=== PATIENT | female | born 1940 | race Caucasian/White ===

== ENCOUNTER → 2016-05-07 | Outpatient (CLI) | payer OTHER, BC ==
[~2016-05-07] MED LIST: ACET-1256 PO; AMLO-114 PO; CALC-20 PO; CEPH500C PO; CLON0.5T3 PO; FERR325T5 PO; FLV1 PO; FSMD/70 PO; GUAISYP4 PO; LEVO1TAB33 PO; LISI-725 PO; METH2.5T PO; MISCCAP80 PO; MULT-506 PO; PRD/25 PO; PRED-301 PO; PRLSR20 PO; PRT/20 PO; PSEU60TA80 PO; RMCI IV; SENN-61 PO; SIME80CH PO; SIMV-151 PO; TNR25 PO; WARF2TAB PO
[2016-05-07 13:31] LABS: PROTHROMBIN TIME (PATIENT) 22.5 SECONDS (9.0-12.0)
== END | disposition home or self-care (01) ==
LOC: C.LABMFLN 09:30
PROVIDERS: ATTEND Nurse Practitioner Family
DX: Z51.81 Encounter for therapeutic drug level monitoring (principal)

== ENCOUNTER 2016-06-30 17:55 | Inpatient (IN) | payer OTHER, BC ==
[~2016-06-30] VITALS: Ht 162.6 cm; Wt 67.0 kg
[~2016-06-30 17:55] MED LIST changes: -GUAISYP4 PO; -LEVO1TAB33 PO; -PRT/20 PO; -PSEU60TA80 PO; -SENN-61 PO; -SIME80CH PO; -WARF2TAB PO
[2016-06-30] MEDS ORDERED: DILTIAZEM HCL 5 MG/ML 5 ML VIAL IV STA ×2 (18:27→18:35)
[2016-06-30] MEDS ORDERED: ACETAMINOPHEN 500 MG TAB PO STA (18:27)
[2016-06-30] MEDS ORDERED: DILTIAZEM BOLUS / DRIP IV STA (18:27)
[2016-06-30] MEDS ORDERED: DILTIAZEM HCL 5 MG/ML 5 ML VIAL ONE (18:33)
[2016-06-30] MEDS ORDERED: ACETAMINOPHEN 500 MG TAB PO ONE (18:33)
[2016-06-30 18:43] LABS: BASO % 0.4 %; BASO ABS # 0.06 K/uL (0-0.2); COMPLETE YES; EOS % 1.5 %; HEMATOCRIT 40.1 % (37-47); IG% 0.6 %; LYMPH % 22.3 %; LYMPH ABS # 3.31 K/uL (1.2-3.4); MEAN CELL VOLUME 101.8 fL (80-100); MEAN CORPUSCULAR HEMOGLOBIN 34.5 pg (25-34); MEAN CORPUSCULAR HGB CONC 33.9 g/dl (32-36); MEAN PLATELET VOLUME 9.7 fL (7.4-10.4); MONO % 6.7 %; NEUT % 68.5 %; PLATELET COUNT 316 K/uL (130-400); RED BLOOD COUNT 3.94 M/uL (4.2-5.4); WHITE BLOOD COUNT 14.81 K/uL (4.8-10.8)
[2016-06-30 19:04] LABS: INR 2.5 (0.9-1.1); PARTIAL THROMBOPLASTIN RATIO 1.8; PROTHROMBIN TIME (PATIENT) 27.4 SECONDS (9.0-12.0)
--- NOTE | 2016-06-30 19:05 | DIAGNOSTIC IMAGING REPORT ---
CHEST ONE VIEW PORTABLE CLINICAL HISTORY: sob dyspnea COMPARISON STUDY: 01/29/2016 FINDINGS: Developing components of congestive failure. Heart is enlarged. Fixed hiatal hernia. Poor definition left hemidiaphragm. Right hemidiaphragm is smooth. IMPRESSION: Congestive heart failure. Potential superimposed infiltrate left base. Stable hiatal hernia. Electronically signed by: Eugenio Arredondo M.D. 06/30/2016 7:03 PM Dictated Date/Time: 06/30/2016 7:03 PM
[2016-06-30] MEDS ORDERED: DILTIAZEM HCL INJ 125 MG in DEXTROSE 5% 100ML IV PRN (19:15)
[2016-06-30] MEDS ORDERED: LEVAQUIN 750MG / 150ML D5W IV STA (19:17)
[2016-06-30] MEDS ORDERED: SODIUM CHLORIDE 0.9% 500ML 500 ML IV STA (19:57)
[2016-06-30 20:07] LABS: ALB/GLOB RATIO 0.6 (0.9-2); BUN/CREATININE RATIO 22.5 (10-20); CALCIUM 8.5 mg/dl (8.5-10.1)
[2016-06-30 20:12] LABS: POTASSIUM 3.9 mmol/L (3.5-5.1)
[2016-06-30] MEDS ORDERED: SIME80CH PO (20:24)
[2016-06-30] MEDS ORDERED: PSEU60TA80 PO (20:24)
[2016-06-30] MEDS ORDERED: WARF2TAB PO (20:24)
[2016-06-30] MEDS ORDERED: GUAISYP4 PO (20:24)
[2016-06-30] MEDS ORDERED: PRT/20 PO (20:24)
[2016-06-30] MEDS ORDERED: SENN-61 PO (20:24)
[2016-06-30] MEDS ORDERED: ALBUMIN HUMAN 25% 12.5 GM/50 ML VIAL IV STA (20:43)
[2016-06-30] MEDS ORDERED: GUAIFENESIN/CODEINE 200MG/20MG 10ML UDC PO PRN (20:45)
[2016-06-30] MEDS ORDERED: SIMETHICONE 80 MG CHEW PO PRN (20:45)
[2016-06-30] MEDS ORDERED: AMIODARONE IV BOLUS / DRIP IV STA (20:53)
[2016-06-30] MEDS ORDERED: NITROGLYCERIN 0.4 MG SL PER TAB CHARGE SL PRN (21:00)
[2016-06-30] MEDS ORDERED: ONDANSETRON INJ 2 MG/ML 2 ML VIAL IV PRN (21:00)
[2016-06-30] MEDS ORDERED: ZOLPIDEM TARTRATE 5 MG TAB PO PRN (21:00)
[2016-06-30] MEDS ORDERED: ACETAMINOPHEN 325 MG TAB PO PRN (21:00)
[2016-06-30] MEDS ORDERED: AMIODARONE / D5W 100 ML IV SCH (21:15)
[2016-06-30] MEDS ORDERED: AMIODARONE / D5W 200 ML IV SCH (21:30)
--- NOTE | 2016-06-30 22:26 | History and Physical ---
History & Physical Date & Time of Service: Jun 30, 2016 at 22:26 Chief Complaint: Breathing,Stomach Pain Primary Care Physician: Laisha Martins History of Present Illness Source: patient, spouse The patient is a 76-year-old female who presents to the emergency department with complaint of worsening fatigue, generalized weakness, increased sleepiness and shakiness, and shortness of breath, that initially began 4 weeks ago but is worsening today. She has had an assessment by her PCP for abdominal pain occurring over the past few months. She also reports a cough with yellow mucus production. She has a history of atrial fibrillation, but denies any palpitations, lightheadedness or dizziness. Past Medical/Surgical History Medical Problems: (1) A-fib Status: Chronic (2) Asthma Status: Chronic (3) Benign hypertension Status: Chronic (4) Heart disease Status: Chronic (5) History of blood clots Status: Chronic (6) Replacement of total knee joint Status: Resolved (7) Rheumatoid arthritis Status: Chronic Family History Heart disease Hypertension Social History Smoking Status: Never Smoker Smokeless Tobacco Use: No Alcohol Use: none Drug Use: none Marital Status: Housing status: lives with family Occupational Status: retired Immunizations History of Influenza Vaccine: N/A History of Tetanus Vaccine?: Yes History of Pneumococcal: Yes Pneumococcal Date: Dec 26, 2006 History of Hepatitis B Vaccine: No Multi-Drug Resistant Organisms History of MDRO: No Allergies Coded Allergies: Amoxicillin (Verified Allergy, Severe, HIVES, 06/30/16) Clavulanic Acid (Verified Allergy, Severe, HIVES, 06/30/16) Prochlorperazine (Verified Allergy, Unknown, 06/30/16) Home Medications Scheduled Acetaminophen (Tylenol), 1,000 MG PO QPM Acetaminophen (Tylenol), 500 MG PO QAM Amlodipine (Norvasc), 10 MG PO QPM Atenolol (Atenolol), 25 MG PO QPM Calcium Carbonate-Vitamin D (Calcium 600 + D), 1 TABLETS PO QAM Cephalexin Monohydrate (Keflex), 4 TABS PO DIRECTED Clonazepam (Klonopin), 0.5 MG PO QPM Folic Acid (Folic Acid), 1 MG PO DAILY Infliximab (Remicade), 100 MG IV q8 weeks Lisinopril (Zestril), 20 MG PO DAILY Methotrexate Sodium (Methotrexate), 6 TABLETS PO WK Pantoprazole (Protonix), 20 MG PO QAM Prednisone (Prednisone), 2.5 MG PO QPM Prednisone (Prednisone), 5 MG PO QAM Probiotic Product (Probiotic), 1 CAP PO QAM Simvastatin (Simvastatin), 20 MG PO DAILY Warfarin Sodium (Coumadin), 1 MG PO DAILY Warfarin Sodium (Coumadin), 2 MG PO DAILY Scheduled PRN Guaifenesin/Codeine (Robitussin-Ac Syrup), 10 ML PO Q6H PRN for Cough Pseudoephedrine-Guaifenesin (Mucinex D), 1 TAB PO BID PRN for COLD SYMPTOMS Senna (Senokot), 1 TAB PO DAILY PRN for Constipation Simethicone (Gas-X), 1 DOSE PO DIRECTED PRN for Gas or Constipation Review of Systems The patient denies chest pain, palpitations, lower extremity swelling, vision change, hearing change, sore throat, fevers, chills, sweats, weight change, pelvic pain, blood in urine or stool, dysuria, urinary frequency or urgency, lightheadedness, dizziness, headache, memory loss, rash, abnormal bruising or bleeding, imbalance, focal weakness, arthralgias or myalgias, back or neck pain , night sweats, or allergy symptoms. The review of systems is otherwise negative other than for that already noted above, and at least 10 systems have been reviewed. Physical Exam Vital Signs Date Time Temp Pulse Resp B/P Pulse Ox O2 Delivery O2 Flow Rate FiO2 06/30/16 21:34 79/57 06/30/16 21:31 63/51 06/30/16 21:30 79 19 98 06/30/16 21:15 134 20 96 06/30/16 21:01 91/50 06/30/16 21:00 134 26 98 06/30/16 20:53 126 22 75/65 98 Nasal Cannula 2.0 06/30/16 20:45 158 20 75/65 99 06/30/16 20:30 92 21 89/53 98 06/30/16 20:28 102/59 06/30/16 20:15 37.2 06/30/16 20:15 105 14 102/59 98 06/30/16 20:14 105 16 105/65 99 06/30/16 20:09 105/65 06/30/16 20:04 154 18 66/42 100 Nasal Cannula 2.0 06/30/16 20:00 117 24 66/42 06/30/16 19:55 85/41 06/30/16 19:48 134 18 94/72 96 Nasal Cannula 2.0 06/30/16 19:45 107 21 06/30/16 19:30 135 26 94/72 06/30/16 19:25 117 21 93 06/30/16 19:24 110/70 06/30/16 19:23 /36 06/30/16 19:15 162 29 90 06/30/16 19:09 99/76 06/30/16 19:08 102/83 06/30/16 19:05 138 22 06/30/16 18:55 140 26 06/30/16 18:45 174 24 96 06/30/16 18:45 171 06/30/16 18:38 Room Air 95 06/30/16 18:35 150 24 155/126 91 06/30/16 18:31 93 Room Air 06/30/16 18:25 157 27 06/30/16 18:18 131/96 06/30/16 18:03 38.2 69 24 98/73 97 Room Air The patient is awake, alert and oriented 3, normocephalic and atraumatic, lying in bed and in no acute distress. HEENT--PERRL, EOMI, mucous membranes and oropharynx dry. Neck--supple, no JVD or bruits, thyroid normal, trachea midline, no adenopathy. Heart--tachycardia with extra beats, no murmurs, rubs or gallops. Lungs--decreased breath sounds at left base, no respiratory distress, no accessory muscle use. Abdomen--normal bowel sounds and soft, nontender and nondistended, no hernias or masses, no organomegaly. Extremities--no cyanosis, clubbing or edema. There are good distal pulses b/l. Dermatologic--normal skin turgor, normal color, warm and dry, no abnormal lymph nodes, no rash. Neurologic--cranial nerves II through XII grossly intact, motor and sensory examination normal. Rheumatologic--normal range of motion, nontender, muscles and joints. Psychiatric--normal affect. Diagnostics Laboratory Results Results Past 24 Hours Test 06/30/16 18:30 3/29/17 18:31 06/30/16 18:40 Range/Units White Blood Count 14.81 4.8-10.8 K/uL Red Blood Count 3.94 4.2-5.4 M/uL Hemoglobin 13.6 12.0-16.0 g/dL Hematocrit 40.1 37-47 % Mean Corpuscular Volume 101.8 80-100 fL Mean Corpuscular Hemoglobin 34.5 25-34 pg Mean Corpuscular Hemoglobin Concent 33.9 32-36 g/dl Platelet Count 316 130-400 K/uL Mean Platelet Volume 9.7 7.4-10.4 fL Neutrophils (%) (Auto) 68.5 % Lymphocytes (%) (Auto) 22.3 % Monocytes (%) (Auto) 6.7 % Eosinophils (%) (Auto) 1.5 % Basophils (%) (Auto) 0.4 % Neutrophils # (Auto) 10.14 1.4-6.5 K/uL Lymphocytes # (Auto) 3.31 1.2-3.4 K/uL Monocytes # (Auto) 0.99 0.11-0.59 K/uL Eosinophils # (Auto) 0.22 0-0.5 K/uL Basophils # (Auto) 0.06 0-0.2 K/uL RDW Standard Deviation 65.4 36.4-46.3 fL RDW Coefficient of Variation 17.5 11.5-14.5 % Immature Granulocyte % (Auto) 0.6 % Immature Granulocyte # (Auto) 0.09 0.00-0.02 K/uL Prothrombin Time 27.4 9.0-12.0 SECONDS Prothromb Time International Ratio 2.5 0.9-1.1 Activated Partial Thromboplast Time 46.9 21.0-31.0 SECONDS Partial Thromboplastin Ratio 1.8 Sodium Level 138 136-145 mmol/L Potassium Level 3.9 3.5-5.1 mmol/L Chloride Level 106 98-107 mmol/L Carbon Dioxide Level 21 21-32 mmol/L Anion Gap 11.0 3-11 mmol/L Blood Urea Nitrogen 23 7-18 mg/dl Creatinine 1.00 0.60-1.20 mg/dl Est Creatinine Clear Calc Drug Dose 47.2 ml/min Estimated GFR () 64.3 Estimated GFR (Non- 55.5 BUN/Creatinine Ratio 22.5 10-20 Random Glucose 102 70-99 mg/dl Calcium Level 8.5 8.5-10.1 mg/dl Magnesium Level 1.9 1.8-2.4 mg/dl Total Bilirubin 0.7 0.2-1 mg/dl Aspartate Amino Transf (AST/SGOT) 20 15-37 U/L Alanine Aminotransferase (ALT/SGPT) 13 12-78 U/L Alkaline Phosphatase 64 45-117 U/L Total Protein 6.9 6.4-8.2 gm/dl Albumin 2.7 3.4-5.0 gm/dl Globulin 4.2 2.5-4.0 gm/dl Albumin/Globulin Ratio 0.6 0.9-2 Bedside Lactic Acid Venous 1.83 0.90-1.70 mmol/L Influenza Type A Antigen Neg for Influ A NEG Influenza Type B Antigen Neg for Influ B NEG Microbiology Results 06/30/16 Blood Culture, Received Pending 06/30/16 Blood Culture, Received Pending Diagnostic Radiology Patient Name: MOO JAIMES Unit Number: [id number] Dictated: 06/30/161902 Transcribed: 06/30/161902 MS Printed Date/Time: [~ rep prt dt]/[~ rep prt tm] [~ rep ct labl] - [~ rep ct ivnm] [facility] [place] [address] Dictated: 06/30/161902 Transcribed: 06/30/161902 MS Printed Date/Time: [~ rep prt dt]/[~ rep prt tm] [~ rep ct labl] - [~ rep ct ivnm] CHEST ONE VIEW PORTABLE CLINICAL HISTORY: sob dyspnea COMPARISON STUDY: 01/29/2016 FINDINGS: Developing components of congestive failure. Heart is enlarged. Fixed hiatal hernia. Poor definition left hemidiaphragm. Right hemidiaphragm is smooth. IMPRESSION: Congestive heart failure. Potential superimposed infiltrate left base. Stable hiatal hernia. Electronically signed by: Eugenio Arredondo M.D. 06/30/2016 7:03 PM Dictated Date/Time: 06/30/2016 7:03 PM The status of this report is Signed. Draft = Not yet reviewed or approved by Radiologist. Signed = Reviewed and approved by Radiologist. <AttendingPhy></AttendingPhy> <FamilyPhy>Laisha MartinsNNickiPNicki</FamilyPhy> < PrimaryPhy>Laisha MartinsP.</PrimaryPhy> <UnitNumber>[id number]</ UnitNumber> <VisitNumber>[id number]</VisitNumber> <PatientName>MOO JAIMES< /PatientName> <DateOfBirth>1940</DateOfBirth> <Location>[facility]</Location> < ServiceDate>06/30/16</ServiceDate> <MNE>ESINDI</MNE> <OrderingPhy>ED, PROTOCOL</ OrderingPhy> <OrderingPhyMNE>f rep ord dr wen</OrderingPhyMNE> <DictatingPhyMNE> f rep dict dr wen</DictatingPhyMNE> <CCListMNE>f rep ct behzad</CCListMNE> < AdmittingPhyMNE>f pt admit dr wen</AdmittingPhyMNE> <AttendingPhyMNE>f pt attend dr wen</AttendingPhyMNE> <ConsultingPhyMNE>f pt consult dr wen</ConsultingPhyMNE> <FamilyPhyMNE>f pt fam dr wen</FamilyPhyMNE> <OtherPhyMNE>f pt other dr wen</OtherPhyMNE> < PrimaryPhyMNE>f pt prim care dr wen</PrimaryPhyMNE> <ReferringPhyMNE>f pt referring dr wen</ReferringPhyMNE> EKG EKG shows atrial flutter with variable block at 159 bpm, left axis deviation, ST depressions in leads V5 and 6, I and aVL, and II. Impression Assessment and Plan Atrial flutter with RVR, variable block and hypotension/CAD/history of A. fib-- blood pressure was at a low of 75/55. She did receive IV fluid resuscitation, and had been started on a Cardizem drip by the emergency department staff, which had to be stopped due to low blood pressure. The patient is admitted to the telemetry unit. We'll continue IV fluid resuscitation. She'll be placed on amiodarone 150 mg IV loading dose and then per protocol. We will stop amlodipine 10 mg by mouth every afternoon and lisinopril 20 mg by mouth daily. We'll change atenolol 25 mg by mouth every afternoon to twice a day with hold parameters. Consult cardiology to see patient in the a.m. We'll follow serial cardiac enzymes, cardiac rhythm monitoring and order a 2-D echocardiogram with Dopplers. Continue warfarin at current dosing. INR is therapeutic at 2.5. Left lower lobe pneumonia--she will be placed on ceftriaxone 1 g IV daily and levofloxacin 500 mg IV daily every 24 hours. GERD--continue pantoprazole but change from 20 to 40 mg every morning. Hypercholesterolemia--continue simvastatin 20 mg by mouth daily. Rheumatoid arthritis--continue folic acid 1 mg by mouth daily. She is on Remicade and methotrexate along with prednisone in the outpatient setting. We' ll increase prednisone from 5 mg every morning and 2.5 mg every afternoon, to 5 mg by mouth twice a day. Insomnia --continue clonazepam 0.5 mg by mouth every afternoon. Level of Care Telemetry Advanced Directives Existing Advance Directive: No Existing Living Will: No Existing Power of Environmental Adviser: No VTE Prophylaxis VTE Risk Assessment Done? Y/N: Yes Risk Level: Moderate Given or contraindicated: Warfarin (Coumadin)
--- NOTE | 2016-06-30 23:41 | EMERGENCY ROOM VISIT NOTE ---
History Report prepared by Padilla: Rom Jennings Under the Supervision of: Dr. Bird Riggins M.D. First contact with patient: 18:22 Chief Complaint: RESPIRATORY PROBLEMS Stated Complaint: BREATHING,STOMACH PAIN History of Present Illness The patient is a 76 year old female who presents to the Emergency Room with complaints of increased tiredness occurring for the past 3-4 weeks and worsening today. She also reports increased sleepiness and shakiness. She notes shortness of breath. The patient also complains of upper abdominal pain occurring for the past few months. Her PCP has performed a work up on her for her abdominal pain. She has had mild nasal congestion and a cough with yellow mucous production. The patient denies fevers, chest pain, heart racing/ palpitations, diarrhea, or any other complaints. She has a history of A Fib but denies any similar symptoms today. Source of History: patient Onset: 3-4 weeks ago Position: other (global) Symptom Intensity: moderate Quality: other (tiredness) Timing: worsening Modifying Factors (Relieving): other (none) Associated Symptoms: + SOB, + abdominal pain, + cough, No chest pain, No diarrhea, No fevers Review of Systems See HPI for pertinent positives & negatives. A total of 10 systems reviewed and were otherwise negative. Past Medical & Surgical Medical Problems: (1) A-fib (2) Asthma (3) Atrial flutter with rapid ventricular response (4) Benign hypertension (5) Heart disease (6) Hiatal hernia (7) History of blood clots (8) Replacement of total knee joint (9) Rheumatoid arthritis Family History Heart disease Hypertension Social History Smoking Status: Never Smoker Alcohol Use: none Drug Use: none Marital Status: Housing Status: lives with family Occupation Status: retired Current/Historical Medications Scheduled Acetaminophen (Tylenol), 1,000 MG PO QPM Acetaminophen (Tylenol), 500 MG PO QAM Amlodipine (Norvasc), 10 MG PO QPM Atenolol (Atenolol), 25 MG PO QPM Calcium Carbonate-Vitamin D (Calcium 600 + D), 1 TABLETS PO QAM Cephalexin Monohydrate (Keflex), 4 TABS PO DIRECTED Clonazepam (Klonopin), 0.5 MG PO QPM Folic Acid (Folic Acid), 1 MG PO DAILY Infliximab (Remicade), 100 MG IV q8 weeks Lisinopril (Zestril), 20 MG PO DAILY Methotrexate Sodium (Methotrexate), 6 TABLETS PO WK Pantoprazole (Protonix), 20 MG PO QAM Prednisone (Prednisone), 2.5 MG PO QPM Prednisone (Prednisone), 5 MG PO QAM Probiotic Product (Probiotic), 1 CAP PO QAM Simvastatin (Simvastatin), 20 MG PO DAILY Warfarin Sodium (Coumadin), 1 MG PO DAILY Warfarin Sodium (Coumadin), 2 MG PO DAILY Scheduled PRN Guaifenesin/Codeine (Robitussin-Ac Syrup), 10 ML PO Q6H PRN for Cough Pseudoephedrine-Guaifenesin (Mucinex D), 1 TAB PO BID PRN for COLD SYMPTOMS Senna (Senokot), 1 TAB PO DAILY PRN for Constipation Simethicone (Gas-X), 1 DOSE PO DIRECTED PRN for Gas or Constipation Allergies Coded Allergies: Amoxicillin (Verified Allergy, Severe, HIVES, 06/30/16) Clavulanic Acid (Verified Allergy, Severe, HIVES, 06/30/16) Prochlorperazine (Verified Allergy, Unknown, 06/30/16) Physical Exam Vital Signs Date Time Temp Pulse Resp B/P Pulse Ox O2 Delivery O2 Flow Rate FiO2 06/30/16 20:53 126 22 75/65 98 Nasal Cannula 2.0 06/30/16 20:45 158 20 75/65 99 06/30/16 20:30 92 21 89/53 98 06/30/16 20:28 102/59 06/30/16 20:15 37.2 06/30/16 20:15 105 14 102/59 98 06/30/16 20:14 105 16 105/65 99 06/30/16 20:09 105/65 06/30/16 20:04 154 18 66/42 100 Nasal Cannula 2.0 06/30/16 20:00 117 24 66/42 06/30/16 19:55 85/41 06/30/16 19:48 134 18 94/72 96 Nasal Cannula 2.0 06/30/16 19:45 107 21 06/30/16 19:30 135 26 94/72 06/30/16 19:25 117 21 93 06/30/16 19:24 110/70 06/30/16 19:23 /36 06/30/16 19:15 162 29 90 06/30/16 19:09 99/76 06/30/16 19:08 102/83 06/30/16 19:05 138 22 06/30/16 18:55 140 26 06/30/16 18:45 174 24 96 06/30/16 18:45 171 06/30/16 18:38 Room Air 95 06/30/16 18:35 150 24 155/126 91 06/30/16 18:31 93 Room Air 06/30/16 18:25 157 27 06/30/16 18:18 131/96 06/30/16 18:03 38.2 69 24 98/73 97 Room Air Physical Exam Constitutional: Vital signs reviewed. Slightly hypotensive. Eyes: Pupils are equal round reactive to light. Conjunctiva are noninjected. ENT: Pharynx is clear without erythema or exudate. Mucous membranes are moist. Neck supple without meningeal signs. Respiratory: Clear to auscultation bilaterally. Breath sounds are equal bilaterally. Cardiovascular: Tachycardic rate with a heart rate of 160. No rubs or gallops. GI: Soft, nondistended and nontender. Bowel sounds are present. Musculoskeletal: No peripheral edema. No lower extremity tenderness. Integumentary: No cyanosis. Neurological: The patient is awake and alert. No focal deficits. Psychiatric: Normal affect. Medical Decision & Procedures ER Provider Diagnostic Interpretation: X-ray results as stated below per interpretation by me and the radiologist: CHEST ONE VIEW PORTABLE CLINICAL HISTORY: sob dyspnea COMPARISON STUDY: 01/29/2016 FINDINGS: Developing components of congestive failure. Heart is enlarged. Fixed hiatal hernia. Poor definition left hemidiaphragm. Right hemidiaphragm is smooth. IMPRESSION: Congestive heart failure. Potential superimposed infiltrate left base. Stable hiatal hernia. Electronically signed by: Eugenio Arredondo M.D. 06/30/2016 7:03 PM Dictated Date/Time: 06/30/2016 7:03 PM Laboratory Results 06/30/16 18:30 Red Blood Count 3.94, Mean Corpuscular Volume 101.8, Mean Corpuscular Hemoglobin 34.5, Mean Corpuscular Hemoglobin Concent 33.9, Mean Platelet Volume 9.7, Neutrophils (%) (Auto) 68.5, Lymphocytes (%) (Auto) 22.3, Monocytes (%) ( Auto) 6.7, Eosinophils (%) (Auto) 1.5, Basophils (%) (Auto) 0.4, Neutrophils # ( Auto) 10.14, Lymphocytes # (Auto) 3.31, Monocytes # (Auto) 0.99, Eosinophils # ( Auto) 0.22, Basophils # (Auto) 0.06 06/30/16 18:30 Test 06/30/16 18:30 06/30/16 18:31 06/30/16 18:40 White Blood Count 14.81 K/uL (4.8-10.8) Red Blood Count 3.94 M/uL (4.2-5.4) Hemoglobin 13.6 g/dL (12.0-16.0) Hematocrit 40.1 % (37-47) Mean Corpuscular Volume 101.8 fL (80-100) Mean Corpuscular Hemoglobin 34.5 pg (25-34) Mean Corpuscular Hemoglobin Concent 33.9 g/dl (32-36) Platelet Count 316 K/uL (130-400) Mean Platelet Volume 9.7 fL (7.4-10.4) Neutrophils (%) (Auto) 68.5 % Lymphocytes (%) (Auto) 22.3 % Monocytes (%) (Auto) 6.7 % Eosinophils (%) (Auto) 1.5 % Basophils (%) (Auto) 0.4 % Neutrophils # (Auto) 10.14 K/uL (1.4-6.5) Lymphocytes # (Auto) 3.31 K/uL (1.2-3.4) Monocytes # (Auto) 0.99 K/uL (0.11-0.59) Eosinophils # (Auto) 0.22 K/uL (0-0.5) Basophils # (Auto) 0.06 K/uL (0-0.2) RDW Standard Deviation 65.4 fL (36.4-46.3) RDW Coefficient of Variation 17.5 % (11.5-14.5) Immature Granulocyte % (Auto) 0.6 % Immature Granulocyte # (Auto) 0.09 K/uL (0.00-0.02) Prothrombin Time 27.4 SECONDS (9.0-12.0) Prothromb Time International Ratio 2.5 (0.9-1.1) Activated Partial Thromboplast Time 46.9 SECONDS (21.0-31.0) Partial Thromboplastin Ratio 1.8 Anion Gap 11.0 mmol/L (3-11) Est Creatinine Clear Calc Drug Dose 47.2 ml/min Estimated GFR () 64.3 Estimated GFR (Non- 55.5 BUN/Creatinine Ratio 22.5 (10-20) Calcium Level 8.5 mg/dl (8.5-10.1) Magnesium Level 1.9 mg/dl (1.8-2.4) Total Bilirubin 0.7 mg/dl (0.2-1) Aspartate Amino Transf (AST/SGOT) 20 U/L (15-37) Alanine Aminotransferase (ALT/SGPT) 13 U/L (12-78) Alkaline Phosphatase 64 U/L (45-117) Total Protein 6.9 gm/dl (6.4-8.2) Albumin 2.7 gm/dl (3.4-5.0) Globulin 4.2 gm/dl (2.5-4.0) Albumin/Globulin Ratio 0.6 (0.9-2) Bedside Lactic Acid Venous 1.83 mmol/L (0.90-1.70) Influenza Type A Antigen Neg for Influ A (NEG) Influenza Type B Antigen Neg for Influ B (NEG) Laboratory results as reviewed by me. Medications Administered Medications (Trade) Dose Ordered Sig/Norman Route Start Time Stop Time Status Last Admin Dose Admin Acetaminophen (Tylenol Tab) 1,000 mg STK-MED ONCE PO 06/30/16 18:33 06/30/16 18:34 DC 06/30/16 18:30 1,000 MG Diltiazem HCl (Cardizem Inj) 25 mg STK-MED ONCE .ROUTE 06/30/16 18:33 06/30/16 18:34 DC 06/30/16 18:30 10 MG Diltiazem HCl 10 mg 10 mg NOW STAT IV 06/30/16 18:35 06/30/16 18:36 DC 06/30/16 18:37 10 MG Diltiazem HCl/ Dextrose (Cardizem Inj/D5 100ml) 125 ml @ 10 mls/hr [id number] PRN IV 06/30/16 19:15 07/30/16 19:14 06/30/16 19:28 10 MLS/HR Levofloxacin 750 mg 750 mg NOW STAT IV 06/30/16 19:17 06/30/16 19:18 DC 06/30/16 19:31 750 MG Sodium Chloride (Nss 500ml) 500 ml @ 999 mls/hr Q31M STAT IV 06/30/16 19:57 06/30/16 20:27 DC 06/30/16 19:30 999 MLS/HR Albumin Human (Albumin 25%) 25 gm ONE STAT IV 06/30/16 20:43 06/30/16 20:44 DC 06/30/16 20:53 25 GM ECG Indication: SOB/dyspnea Rate (beats per minute): 159 Rhythm: atrial fibrillation (with RVR) Findings: other (Nonspecific ST changes; QRS is 72 milliseconds) ED Course 1821: The patient was evaluated in room B12A. A complete history and physical exam was performed. 1826: Diltiazem HCl 1 ea IV 1834: Cardizem Inj 10 mg IV 1843: I reevaluated the patient. Her heart rate is now 111. 1899: I reevaluated the patient who feels better. 1914: Diltiazem HCl 125 mg/Dextrose 125 ml @ 10 mls/hr Protocol IV 1919: The patient's heart rate is in the 120s. Cardizem trip is now starting. 1916: Levofloxacin 750 mg IV 1954: The patient is slightly hypotensive. Cardizem drip is running. Her heart rate fluctuates from 110s to 150s. Fluid bolus is initiated. I discussed the treatment plan with the patient. She verbalized agreement of the treatment plan. The patient will be evaluated for further management and care. 1956: Sodium Chloride 500 ml @ 999 mls/hr IV 2004: I discussed the patient's case with Dr. Alfaro, from [facility]. Medical Decision This is a 76-year-old female who presents with generalized fatigue and cold symptoms. Differential diagnosis includes sepsis, pneumonia, viral syndrome, influenza, UTI, cardiac, metabolic derangement. I did perform a limited focused review of portions of the patient's old chart on the electronic medical record. The patient was admitted in January 2016 for abdominal pain. She was diagnosed with a right renal mass and a large diaphragmatic hernia with stomach and lower chest. I was called emergently to the bedside by the nurse. I did evaluate the patient as noted above. IV access was established. The patient was placed on a continuous steel erecting pusher. I did order and personally review the patient's 12-lead EKG and chest x-ray as described above. The patient has atrial fibrillation with RVR and is slightly hypotensive. She was treated with Cardizem 10 mg IV. She had slight improvement of her heart rate and her blood pressure. She was given another bolus of Cardizem IV and her heart rate went down to about 110. She was started on a Cardizem drip at 10 mg per hour IV. Her chest x-ray demonstrates a left-sided pneumonia. Blood cultures were obtained. I did treat her with Levaquin IV. I did order and review the patient 's blood work as noted in the electronic medical record. Her lactic acid is elevated. Her white blood cell count is also elevated. INR is therapeutic. I did reassess the patient multiple times. She did have some transient drop in her blood pressure. She was given a normal saline bolus IV. Her blood pressure did improve. I did discuss the test results with the patient and her . I did discuss case with the hospitalist and shelter case manager for admission. Consults Time Called: 1999 Consulting Physician: Dr. Alfaro, from [facility] Returned Call: 2004 I discussed the patient's case with Dr. Alfaro, from [facility]. Impression Primary Impression: Atrial fibrillation with RVR Additional Impressions: Pneumonia involving left lung Anticoagulated on Coumadin Critical Care I have personally spent 35 minutes of critical care time in the direct management of this patient. This includes bedside care, interpretation of diagnostic studies, and testing, discussion with consultants, patient, and family members, and other required patient management activities. This 35 minutes is in excess of all separately billable procedures. Scribe Attestation The scribe's documentation has been prepared under my direct and personally reviewed by me in its entirety. I confirm that the note above accurately reflects all work, treatment, procedures, and medical decision making performed by me. Departure Information Dispostion Being Evaluated By Hospitalist Referrals No Doctor, Assigned (PCP) Patient Instructions [facility] Problem Qualifiers Additional Impressions: Pneumonia involving left lung Pneumonia type: due to unspecified organism Lung location: lower lobe of lung Qualified Codes: J18.1 - Lobar pneumonia, unspecified organism
[2016-06-30 23:43] VITALS: BP 91/61; PULSE 70; TEMP 36.4; O2SAT 99; Ht 162.6 cm; Wt 67.0 kg
[2016-06-30 23:45] VITALS: BP 87/49; PULSE 84; TEMP 36.4; O2SAT 98
[2016-07-01] VITALS (8 sets, daily range): BP systolic 101–129; BP diastolic 61–75; PULSE 82–101; TEMP 36.4–36.7; O2SAT 97–99
[2016-07-01] MEDS ORDERED: NSS + 20MEQ KCL 1000ML 1,000 ML IV SCH
[2016-07-01] MEDS: CEFTRIAXONE SOD INJ 1 GM in DEXTROSE 5% ADD-VANTAGE 50ML 50 ML IV SCH (01:05)
[2016-07-01] MEDS: CLONAZEPAM 0.5 MG TAB PO SCH ×2 (01:07→20:01)
[2016-07-01] MEDS ORDERED: AMIODARONE / D5W 200 ML IV SCH (03:30)
[2016-07-01 03:35] LABS: URINE BILIRUBIN NEG (NEG); URINE COLOR YELLOW; URINE NITRITE NEG (NEG); URINE PH 5.5 (4.5-7.5); URINE SPECIFIC GRAVITY 1.014 (1.000-1.030); UROBILINOGEN NEG (NEG); ZZURINE CULT IF INDIC CATH YES
[2016-07-01 03:44] LABS: MANUAL MICROSCOPIC REQUIRED? NO; REVIEW REQ? YES
[2016-07-01] MEDS ORDERED: NURSING VERBAL MED ORDER ONE (05:30)
[2016-07-01 06:12] LABS: BASO % 0.4 %; BASO ABS # 0.04 K/uL (0-0.2); COMPLETE YES; HEMATOCRIT 36.1 % (37-47); IG% 0.7 %; LYMPH % 24.4 %; LYMPH ABS # 2.62 K/uL (1.2-3.4); MEAN CELL VOLUME 100.8 fL (80-100); MEAN CORPUSCULAR HGB CONC 32.7 g/dl (32-36); MEAN PLATELET VOLUME 9.4 fL (7.4-10.4); MONO % 7.8 %; NEUT % 64.7 %; PLATELET COUNT 250 K/uL (130-400); RED BLOOD COUNT 3.58 M/uL (4.2-5.4); WHITE BLOOD COUNT 10.72 K/uL (4.8-10.8)
[2016-07-01 06:28] LABS: INR 2.5 (0.9-1.1); PARTIAL THROMBOPLASTIN RATIO 2.1; PROTHROMBIN TIME (PATIENT) 28.2 SECONDS (9.0-12.0)
[2016-07-01 06:44] LABS: ALT/SGPT 10 U/L (12-78); AST/SGOT 22 U/L (15-37); BLOOD UREA NITROGEN 20 mg/dl (7-18); BUN/CREATININE RATIO 22.9 (10-20); CARBON DIOXIDE 22 mmol/L (21-32); CHLORIDE 108 mmol/L (98-107); CREATININE 0.88 mg/dl (0.60-1.20); GLUCOSE 80 mg/dl (70-99); MAGNESIUM 2.2 mg/dl (1.8-2.4); POTASSIUM 3.8 mmol/L (3.5-5.1); SODIUM 140 mmol/L (136-145)
[2016-07-01 06:45] LABS: ALKALINE PHOSPHATASE 49 U/L (45-117)
[2016-07-01] MEDS: PANTOprazole SOD 40 MG TAB PO SCH (07:42)
[2016-07-01] MEDS: SIMVASTATIN 20 MG TAB PO SCH (07:42)
[2016-07-01] MEDS: CALCIUM 600MG + VIT D 400 IU TAB PO SCH (07:42)
[2016-07-01] MEDS: LACTOBACILLUS ACIDOPHILUS (FLORANEX) TAB PO SCH ×3 (07:43→15:46)
[2016-07-01] MEDS: SENNA 8.6 MG TAB PO PRN (07:44)
[2016-07-01] MEDS: ACETAMINOPHEN 500 MG TAB PO SCH ×2 (07:46→19:58)
--- NOTE | 2016-07-01 08:48 | Family Medicine Progress Note ---
Progress Note Date of Service Jul 01, 2016. Subjective Pt evaluation today including: conversation w/ patient, physical exam, chart review, lab review, review of studies, review of inpatient medication list Voiding: saenz catheter in place Feeling much improved since admission. Still having intermittent light headed episodes however, feels faint-like worse when sitting up. She notes a strong family history of members who faint easily. Musculoskeletal: + joint pain (chronic multiple from RA) Female : + problem reported (saenz cath in place), No dysuria Endo: + fatigue All Other Systems: Reviewed and Negative Medications Current Inpatient Medications Medications (Trade) Dose Ordered Sig/Norman Route Start Time Stop Time Status Last Admin Dose Admin Diltiazem HCl/ Dextrose (Cardizem Inj/D5 100ml) 125 ml @ 10 mls/hr [id number] PRN IV 06/30/16 19:15 07/30/16 19:14 06/30/16 19:28 10 MLS/HR Acetaminophen (Tylenol Tab) 1,000 mg QPM PO 07/01/16 21:00 07/31/16 20:59 Acetaminophen (Tylenol Tab) 500 mg QAM PO 07/01/16 09:00 07/31/16 08:59 07/01/16 07:46 500 MG Atenolol (Tenormin Tab) 25 mg BID PO 06/30/16 21:00 07/30/16 20:59 07/01/16 07:43 25 MG Clonazepam (Klonopin Tab) 0.5 mg QPM PO 06/30/16 21:00 07/30/16 20:59 07/01/16 01:07 0.5 MG Folic Acid (Folvite Tab) 1 mg DAILY PO 07/01/16 09:00 07/31/16 08:59 07/01/16 07:43 1 MG Codeine Phosphate/ Guaifenesin (Robitussin-AC Sugar Free Syrup) 10 ml Q6H PRN PO 06/30/16 20:45 07/30/16 20:44 Senna (Senokot Tab) 8.6 mg DAILY PRN PO 06/30/16 20:45 07/30/16 20:44 07/01/16 07:44 8.6 MG Simethicone (Mylicon Chew Tab) 80 mg QID PRN PO 06/30/16 20:45 07/30/16 20:44 07/01/16 07:43 80 MG Simvastatin (Zocor Tab) 20 mg DAILY PO 07/01/16 09:00 07/31/16 08:59 07/01/16 07:42 20 MG Warfarin Sodium (Coumadin Tab) 1 mg TuThSa@1600 PO 07/01/16 16:00 07/31/16 15:59 Warfarin Sodium (Coumadin Tab) 2 mg SuMoWeFr@1600 PO 07/02/16 16:00 08/01/16 15:59 Calcium/Vitamin D (Caltrate Plus Tab) 1 tab QAM PO 07/01/16 09:00 07/31/16 08:59 07/01/16 07:42 1 TAB Pantoprazole Sodium (Protonix Tab) 40 mg QAM PO 07/01/16 09:00 07/31/16 08:59 07/01/16 07:42 40 MG Lactobacillus Acidophilus (Floranex Tab) 4 tab TIDM PO 07/01/16 07:30 07/31/16 07:59 07/01/16 07:43 4 TAB Acetaminophen (Tylenol Tab) 650 mg Q4H PRN PO 06/30/16 21:00 07/30/16 20:59 07/01/16 05:26 650 MG Zolpidem Tartrate (Ambien Tab) 5 mg HSZ PRN PO 06/30/16 21:00 07/30/16 20:59 Nitroglycerin (Nitrostat Tab) 0.4 mg UD PRN SL 06/30/16 21:00 07/30/16 20:59 Ondansetron HCl 4 mg 4 mg Q6H PRN IV 06/30/16 21:00 07/30/16 20:59 Levofloxacin 500 mg/Prmx 100 ml @ 100 mls/hr Q24H IV 07/01/16 20:00 07/07/16 19:59 Ceftriaxone Sodium 1 gm/ Dextrose 50 ml @ 100 mls/hr Q24H IV 07/01/16 00:00 07/08/16 00:00 07/01/16 01:05 100 MLS/HR Amiodarone HCL/ Dextrose (Nexterone / D5w) 200 ml @ 16.7 mls/hr [id number] IV 07/01/16 03:30 07/31/16 03:29 07/01/16 02:49 16.7 MLS/HR Objective Vital Signs Date Time Temp Pulse Resp B/P Pulse Ox O2 Delivery O2 Flow Rate FiO2 07/01/16 07:30 Nasal Cannula 2.0 07/01/16 07:26 36.4 92 20 120/75 99 Nasal Cannula 2.0 07/01/16 04:57 36.7 98 16 119/67 98 Nasal Cannula 2.0 07/01/16 04:00 99 Nasal Cannula 2.0 95 07/01/16 01:38 108/71 07/01/16 00:00 99 Nasal Cannula 2.0 95 06/30/16 23:45 36.4 84 18 87/49 98 Nasal Cannula 2.0 06/30/16 23:43 36.4 70 18 91/61 99 Nasal Cannula 2.0 06/30/16 22:30 137 22 78/58 98 06/30/16 21:34 79/57 06/30/16 21:31 63/51 06/30/16 21:30 79 19 98 06/30/16 21:15 134 20 96 06/30/16 21:01 91/50 06/30/16 21:00 134 26 98 06/30/16 20:53 126 22 75/65 98 Nasal Cannula 2.0 06/30/16 20:45 158 20 75/65 99 06/30/16 20:30 92 21 89/53 98 06/30/16 20:28 102/59 06/30/16 20:15 37.2 06/30/16 20:15 105 14 102/59 98 06/30/16 20:14 105 16 105/65 99 06/30/16 20:09 105/65 06/30/16 20:04 154 18 66/42 100 Nasal Cannula 2.0 06/30/16 20:00 117 24 66/42 06/30/16 19:55 85/41 06/30/16 19:48 134 18 94/72 96 Nasal Cannula 2.0 06/30/16 19:45 107 21 06/30/16 19:30 135 26 94/72 06/30/16 19:25 117 21 93 06/30/16 19:24 110/70 06/30/16 19:23 /36 06/30/16 19:15 162 29 90 06/30/16 19:09 99/76 06/30/16 19:08 102/83 06/30/16 19:05 138 22 06/30/16 18:55 140 26 06/30/16 18:45 174 24 96 06/30/16 18:45 171 06/30/16 18:38 Room Air 95 06/30/16 18:35 150 24 155/126 91 06/30/16 18:31 93 Room Air 06/30/16 18:25 157 27 06/30/16 18:18 131/96 06/30/16 18:03 38.2 69 24 98/73 97 Room Air Physical Exam General Appearance: WD/WN, no apparent distress Eyes: normal inspection, PERRL, EOMI Neck: supple, no JVD Respiratory/Chest: chest non-tender, lungs clear, normal breath sounds, no respiratory distress, no accessory muscle use Cardiovascular: no edema, no murmur, + irregularly irregular Abdomen: normal bowel sounds, soft, + tenderness (mild epigastric and suprapubic tenderness without guarding or rebound) Extremities: no pedal edema, no calf tenderness, normal capillary refill, + pertinent finding (chronic inflammation of joints consistent with RA) Neurologic/Psychiatric: no motor/sensory deficits, alert, normal mood/affect, oriented x 3 Skin: normal color, warm/dry, no rash Laboratory Results 07/01/16 05:22 Red Blood Count 3.58, Mean Corpuscular Volume 100.8, Mean Corpuscular Hemoglobin 33.0, Mean Corpuscular Hemoglobin Concent 32.7, Mean Platelet Volume 9.4, Neutrophils (%) (Auto) 64.7, Lymphocytes (%) (Auto) 24.4, Monocytes (%) ( Auto) 7.8, Eosinophils (%) (Auto) 2.0, Basophils (%) (Auto) 0.4, Neutrophils # ( Auto) 6.93, Lymphocytes # (Auto) 2.62, Monocytes # (Auto) 0.84, Eosinophils # ( Auto) 0.21, Basophils # (Auto) 0.04 07/01/16 05:22 Test 06/30/16 18:30 06/30/16 18:31 06/30/16 18:40 06/30/16 21:50 Globulin 4.2 gm/dl (2.5-4.0) Albumin/Globulin Ratio 0.6 (0.9-2) Bedside Lactic Acid Venous 1.83 mmol/L (0.90-1.70) Influenza Type A Antigen Neg for Influ A (NEG) Influenza Type B Antigen Neg for Influ B (NEG) Urine Color YELLOW Urine Appearance ERROR (CLEAR) Urine pH 5.5 (4.5-7.5) Urine Specific Kendall 1.014 (1.000-1.030) Urine Protein 1+ (NEG) Urine Glucose (UA) NEG (NEG) Urine Ketones TRACE (NEG) Urine Occult Blood 1+ (NEG) Urine Nitrite NEG (NEG) Urine Bilirubin NEG (NEG) Urine Urobilinogen NEG (NEG) Urine Leukocyte Esterase LARGE (NEG) Urine WBC (Auto) >30 /hpf (0-5) Urine RBC (Auto) 0-4 /hpf (0-4) Urine Hyaline Casts (Auto) 0 /lpf (0-5) Urine Epithelial Cells (Auto) 5-10 /lpf (0-5) Urine Bacteria (Auto) 4+ (NEG) Urine Pathogenic Casts /lpf (0) Test 07/01/16 05:22 White Blood Count 10.72 K/uL (4.8-10.8) Red Blood Count 3.58 M/uL (4.2-5.4) Hemoglobin 11.8 g/dL (12.0-16.0) Hematocrit 36.1 % (37-47) Mean Corpuscular Volume 100.8 fL (80-100) Mean Corpuscular Hemoglobin 33.0 pg (25-34) Mean Corpuscular Hemoglobin Concent 32.7 g/dl (32-36) Platelet Count 250 K/uL (130-400) Mean Platelet Volume 9.4 fL (7.4-10.4) Neutrophils (%) (Auto) 64.7 % Lymphocytes (%) (Auto) 24.4 % Monocytes (%) (Auto) 7.8 % Eosinophils (%) (Auto) 2.0 % Basophils (%) (Auto) 0.4 % Neutrophils # (Auto) 6.93 K/uL (1.4-6.5) Lymphocytes # (Auto) 2.62 K/uL (1.2-3.4) Monocytes # (Auto) 0.84 K/uL (0.11-0.59) Eosinophils # (Auto) 0.21 K/uL (0-0.5) Basophils # (Auto) 0.04 K/uL (0-0.2) RDW Standard Deviation 65.8 fL (36.4-46.3) RDW Coefficient of Variation 17.7 % (11.5-14.5) Immature Granulocyte % (Auto) 0.7 % Immature Granulocyte # (Auto) 0.08 K/uL (0.00-0.02) Prothrombin Time 28.2 SECONDS (9.0-12.0) Prothromb Time International Ratio 2.5 (0.9-1.1) Activated Partial Thromboplast Time 54.8 SECONDS (21.0-31.0) Partial Thromboplastin Ratio 2.1 Anion Gap 10.0 mmol/L (3-11) Est Creatinine Clear Calc Drug Dose 52.6 ml/min Estimated GFR () 75.0 Estimated GFR (Non- 64.7 BUN/Creatinine Ratio 22.9 (10-20) Calcium Level 8.0 mg/dl (8.5-10.1) Magnesium Level 2.2 mg/dl (1.8-2.4) Total Bilirubin 0.5 mg/dl (0.2-1) Direct Bilirubin < 0.1 mg/dl (0-0.2) Aspartate Amino Transf (AST/SGOT) 22 U/L (15-37) Alanine Aminotransferase (ALT/SGPT) 10 U/L (12-78) Alkaline Phosphatase 49 U/L (45-117) Total Protein 5.8 gm/dl (6.4-8.2) Albumin 2.5 gm/dl (3.4-5.0) Assessment and Plan 76 yo female with known atrial flutter/fibrillation, shortness of breath and fatigue. Possible left lower lobe pneumonia - Questionable infiltrate on CXR with b/l pulmonary edema. - Continue ceftriaxone and levaquin pending blood cultures Cystitis/UTI - suprapubic pain with UA suggestive of UTI - covered with ceftriaxone and Levaquin - await urine cultures Atrial flutter with RVR, variable block and hypotension in the ER - Consult cardiology - Cardizem stopped due to low BP - continue IV amiodarone currently pending cardiology review Coronary artery disease / history of A. fib - blood pressure was at a low of 75/55 - serial cardiac enzymes negative Hypotension - now resolved but still feeling occasional light headedness - hold amlodipine and lisinopril. Atenolol increased to 25mg daily to twice/day We'll follow serial cardiac enzymes, cardiac rhythm monitoring and order a 2- D echocardiogram with Dopplers. Continue warfarin at current dosing. INR is therapeutic at 2.5. GERD/gastritis - mild epigastric pain on examination. Pantoprazole was increased from 20-40mg PO. Hypercholesterolemia - continue simvastatin 20 mg PO daily Rheumatoid arthritis - continue folic acid 1 mg by mouth daily. - Hold infliximab and methotrexate, she is unsure who her - Continue prednisone; 5 mg QAM and 5(increased from 2.5)mg in afternoon Insomnia --continue clonazepam 0.5 mg by mouth every afternoon. Code - Full VTE Prophylaxis - INR therapeutic. Hold warfarin as INR likely to increase with Levaquin use Disposition - continue on telemetry due to RVR and IV amiodarone Resident Tracking Resident Involvement: Resident Care Provided Care Provided: Adult Hospital Medicine History Resident Physician Supervision Note: I was present with Dr. Hdz during the history and exam. I discussed the case with the resident and agree with the findings and plan as documented in the note. Any exceptions or clarifications are listed here. Pt seen and examined at bedside. Feeling fatigued, but reports no SOB, PURDY, lightheadedness, CP, palpitations, sensation changes, n/v. General Appearance: no apparent distress, thin Respiratory: chest non-tender, no respiratory distress, decreased breath sounds (b/l bases L > R) Cardiovascular: normal peripheral pulses, no edema, irregularly irregular Gastrointestinal: normal bowel sounds, non tender, soft, no organomegaly Assessment/Plan 76 y/o male h/o CAD, atrial fibrillation presents w/ LLL PNA and atrial fibrillation w/ RVR Atrial fibrillation w/ RVR w/ hypotension - Cardiology aware and input appreciated. D/C amiodarone in favor of rate control w/ diltiazem and digoxin. Continue warfarin. Hydration w/ 500cc over several hr. Continue atenolol BID. Holding lisinopril and amlodipine LLL PNA - continue levofloxacin and ceftriaxone, f/u BCx Elevated aPTT - repeat in AM, t/c hematology evaluation Decreased UOP - likely azotemia - hydration as above GERD - PPI HLD - continue simvastatin RA - continue folic acid. Pred at 5mg BID Insomnia - takes clonazepam, will continue but strongly recommend alternative sleep aid
[2016-07-01] MEDS ORDERED: DIGOXIN 0.25 MG TAB PO ONE (13:30)
--- NOTE | 2016-07-01 13:56 | CARDIOLOGY CONSULTATION ---
DATE OF CONSULTATION: 07/01/2016 REFERRING PHYSICIAN: Sim Hdz. HISTORY OF PRESENT ILLNESS: Mrs. Mary Mercedes is a 76-year-old woman with a history of atrial fibrillation versus atrial flutter. She was admitted to [facility] yesterday after experiencing several weeks of worsening fatigue and some shaking episodes as well as sleepiness. She also has been having some abdominal discomfort recently that seems to be worse prior to eating. She has not been aware of any racing heartbeats or palpitations recently. She has not had any symptoms of chest discomfort. She states that she may have had an element of worsening breathing difficulty and occasional cough. She also has had some subjective fevers and the aforementioned shakes. The patient generally speaking is very sedentary, she is compliant of wheelchair and taken care of by her at home. She has been compliant with her medications and has not suffered a notable change in her diet recently. She is not aware of any lower extremity swelling or increasing edema. She has an element of anorexia over the past few weeks, primarily associated with her abdominal complaints and a generalized feeling of weakness. She does not describe symptoms of dizziness or lightheadedness. PAST MEDICAL HISTORY: Significant for: 1. Rheumatoid arthritis. 2. Anemia. 3. Atrial flutter versus fibrillation. 4. Hiatal hernia with esophageal reflux. 5. Hyperlipidemia. 6. Hypertension. 7. Lumbar radiculopathy. 8. Deep venous thrombosis. PAST SURGICAL HISTORY: Includes knee replacement and ankle surgery. OUTPATIENT MEDICATIONS: Include amlodipine, atenolol, warfarin, lisinopril, folic acid, methotrexate, omeprazole, prednisone, Remicade and Zocor. MEDICAL ALLERGIES: INCLUDE AMOXICILLIN, AUGMENTIN, AND PROCHLORPERAZINE. FAMILY HISTORY: Noncontributory. No history of premature coronary disease. SOCIAL HISTORY: The patient currently lives with her . She is a nonsmoker and denies significant alcohol abuse. REVIEW OF SYSTEMS: A complete system review of systems was performed and the pertinent positives are noted in the history of present illness. The patient did not report any difficulty with vomiting. She has had normal bowel habits. She has not noticed any swelling in her lower extremities. She has no new symptoms of pain. PHYSICAL EXAMINATION: GENERAL: She was alert and oriented, mood and affect appeared normal. She answered all questions appropriately. CURRENT VITAL SIGNS: Include blood pressure 101/61 with a pulse of 82. HEENT: Her sclerae are anicteric. Pupils equal, reactive to light and accommodation. Extraocular movements were intact. NECK: Palpation of submandibular region not really significant lymphadenopathy. The carotids are palpable bilaterally. I do not appreciate bruits on auscultation. There is no evidence of jugular venous distention. Thyroid is not enlarged. LUNGS: Auscultation of lungs reveal them to be clear. I do not appreciate any rales on exam she had good respiratory effort without use of accessory muscles. CARDIAC: Revealed her to be in an irregular, irregular rhythm. I did not appreciate any murmurs; however. PMI was not markedly displaced. EXTREMITIES: Evaluation of both wrists revealed radial pulses that were equal in intensity. There is no evidence of cyanosis or clubbing, although she did have marked deformity of all 4 extremities due to arthritis. There are some atrophic changes in the legs, but no edema. LABORATORY STUDIES: Obtained at [facility] include a sodium of 140 with potassium of 3.8, BUN was 20, creatinine was 0.88. CBC includes a white cell count of 10.7, hemoglobin 11.8, platelet count of 250. INR was 2.5. IMAGING DATA: Single view chest x-ray was obtained in the Emergency Room and this revealed evidence of congestive heart failure with possible infiltrate in the left base. EKGs and telemetry were reviewed and this suggested atrial fibrillation, occasional high rates more consistent with an organized atrial rhythm such as atrial flutter. ASSESSMENT AND PLAN: 1. Atrial fibrillation. Review of the patient's telemetry suggests her predominant rhythm is more consistent with an atrial fibrillation rather than an organized atrial flutter. The duration of her current episode is unclear. Her outpatient records suggests this is chronic and she has had an irregular heart rate during most clinic visit. Given the presumed chronicity of the arrhythmia, I think efforts at rhythm control strategy would be ineffective. As such, I think we will continue with rate control in this circumstance, presentation with high rates may be more consistent either with infection or dehydration associated with anorexia leading up to her admission. She does appear to be compliant with the medical therapy. Review of her outpatient records suggests that her overall heart rate is on the lower side and I think we must be careful with respect to aggressive rate control. She is likely did have some improvement in her heart rate as her clinical condition improves. I would discontinue amiodarone favor of other rate control agents since our intention is not to return her into sinus rhythm. I do not feel there is any efficacy in giving her amiodarone and exposing her to that toxicity. I would advocate returning her to her daily dose of atenolol and added digoxin. Given her relatively sedentary state this may in fact improve rate control overall. 2. Dyspnea. The patient did have an element of dyspnea at the time of admission which appears to have resolved today, she is on some supplemental oxygen. She may have an infectious process or possibly pulmonary vascular congestion. She is scheduled for an echocardiogram today, a notable change in her ventricular function could have precipitated this recent episode, account for her higher heart rates and perhaps breathing difficulties. 3. Hypotension. The patient did present with relative hypotension; however, this was after administration of diltiazem, possibly in the setting of some mild intravascular depletion and her pressures are more normal currently. I do not think this represents a result of significant cardiac decompensation. FINAL RECOMMENDATIONS: 1. Review echocardiogram. 2. Continue rate control strategy with atenolol and digoxin. 3. Discontinue amiodarone. 4. Continue anticoagulation.
[2016-07-01] MEDS ORDERED: WARFARIN SOD 1 MG TAB PO SCH (16:00)
[2016-07-01] MEDS ORDERED: SODIUM CHLORIDE 0.9% 500ML 500 ML IV STA (19:37)
[2016-07-01] MEDS: LEVOFLOXACIN / D5W 500 MG in PREMIXED IN D5W 100 ML IV SCH (19:57)
[2016-07-02] VITALS (7 sets, daily range): BP systolic 107–147; BP diastolic 64–89; PULSE 49–123; TEMP 36.4–36.8; O2SAT 96–99
[2016-07-02] MEDS: CEFTRIAXONE SOD INJ 1 GM in DEXTROSE 5% ADD-VANTAGE 50ML 50 ML IV SCH (00:22)
[2016-07-02] MEDS ORDERED: NURSING VERBAL MED ORDER ONE (01:00)
[2016-07-02 07:26] LABS: BASO % 0.2 %; BASO ABS # 0.01 K/uL (0-0.2); COMPLETE YES; EOS % 0.6 %; HEMATOCRIT 34.8 % (37-47); IG% 1.1 %; LYMPH % 18.5 %; LYMPH ABS # 1.18 K/uL (1.2-3.4); MEAN CORPUSCULAR HEMOGLOBIN 33.6 pg (25-34); MEAN CORPUSCULAR HGB CONC 33.6 g/dl (32-36); MEAN PLATELET VOLUME 9.7 fL (7.4-10.4); MONO % 3.9 %; NEUT % 75.7 %; PLATELET COUNT 257 K/uL (130-400); RED BLOOD COUNT 3.48 M/uL (4.2-5.4); WHITE BLOOD COUNT 6.39 K/uL (4.8-10.8)
[2016-07-02 07:41] LABS: INR 2.6 (0.9-1.1); PARTIAL THROMBOPLASTIN RATIO 2.2; PROTHROMBIN TIME (PATIENT) 28.6 SECONDS (9.0-12.0)
[2016-07-02 07:58] LABS: BUN/CREATININE RATIO 18.2 (10-20); CALCIUM 7.9 mg/dl (8.5-10.1); CREATININE 0.62 mg/dl (0.60-1.20); POTASSIUM 3.8 mmol/L (3.5-5.1)
--- NOTE | 2016-07-02 09:02 | Family Medicine Progress Note ---
Progress Note Date of Service Jul 02, 2016. Subjective Pt evaluation today including: conversation w/ patient, conversation w/ family , physical exam, chart review, review of studies, review of inpatient medication list Voiding: no voiding problems Feels she is improving, no acute issues overnight. Discussed consulting hematology and additional testing for elevated aPTT, possibility of lupus anticoagulant. All Other Systems: Reviewed and Negative Medications Current Inpatient Medications Medications (Trade) Dose Ordered Sig/Norman Route Start Time Stop Time Status Last Admin Dose Admin Acetaminophen (Tylenol Tab) 1,000 mg QPM PO 07/01/16 21:00 07/31/16 20:59 07/01/16 19:58 1,000 MG Acetaminophen (Tylenol Tab) 500 mg QAM PO 07/01/16 09:00 07/31/16 08:59 07/01/16 07:46 500 MG Clonazepam (Klonopin Tab) 0.5 mg QPM PO 06/30/16 21:00 07/30/16 20:59 07/01/16 20:01 0.5 MG Folic Acid (Folvite Tab) 1 mg DAILY PO 07/01/16 09:00 07/31/16 08:59 07/01/16 07:43 1 MG Codeine Phosphate/ Guaifenesin (Robitussin-AC Sugar Free Syrup) 10 ml Q6H PRN PO 06/30/16 20:45 07/30/16 20:44 Senna (Senokot Tab) 8.6 mg DAILY PRN PO 06/30/16 20:45 07/30/16 20:44 07/01/16 07:44 8.6 MG Simethicone (Mylicon Chew Tab) 80 mg QID PRN PO 06/30/16 20:45 07/30/16 20:44 07/01/16 07:43 80 MG Simvastatin (Zocor Tab) 20 mg DAILY PO 07/01/16 09:00 07/31/16 08:59 07/01/16 07:42 20 MG Calcium/Vitamin D (Caltrate Plus Tab) 1 tab QAM PO 07/01/16 09:00 07/31/16 08:59 07/01/16 07:42 1 TAB Pantoprazole Sodium (Protonix Tab) 40 mg QAM PO 07/01/16 09:00 07/31/16 08:59 07/01/16 07:42 40 MG Lactobacillus Acidophilus (Floranex Tab) 4 tab TIDM PO 07/01/16 07:30 07/31/16 07:59 07/01/16 15:46 4 TAB Acetaminophen (Tylenol Tab) 650 mg Q4H PRN PO 06/30/16 21:00 07/30/16 20:59 07/01/16 05:26 650 MG Zolpidem Tartrate (Ambien Tab) 5 mg HSZ PRN PO 06/30/16 21:00 07/30/16 20:59 Nitroglycerin (Nitrostat Tab) 0.4 mg UD PRN SL 06/30/16 21:00 07/30/16 20:59 Ondansetron HCl 4 mg 4 mg Q6H PRN IV 06/30/16 21:00 07/30/16 20:59 Levofloxacin 500 mg/Prmx 100 ml @ 100 mls/hr Q24H IV 07/01/16 20:00 07/07/16 19:59 07/01/16 19:57 100 MLS/HR Ceftriaxone Sodium/Dextrose (Rocephin Inj/ Dextrose Add-Webber 50ML) 50 ml @ 100 mls/hr Q24H IV 07/01/16 00:00 07/08/16 00:00 07/02/16 00:22 100 MLS/HR Atenolol (Tenormin Tab) 25 mg DAILY PO 07/02/16 09:00 08/01/16 08:59 Prednisone (PredniSONE TAB) 5 mg QAM PO 07/02/16 09:00 08/01/16 08:59 Prednisone (PredniSONE TAB) 5 mg DAILY@1300 PO 07/02/16 13:00 08/01/16 12:59 Objective Vital Signs Date Time Temp Pulse Resp B/P Pulse Ox O2 Delivery O2 Flow Rate FiO2 07/02/16 08:00 36.4 123 18 147/81 96 Room Air 07/02/16 04:27 36.6 99 18 129/75 97 Room Air 07/02/16 04:00 Room Air 07/02/16 00:03 36.7 99 18 136/82 99 Room Air 07/01/16 23:59 Room Air 07/01/16 20:00 Room Air 07/01/16 19:55 36.4 86 18 118/72 97 Room Air 07/01/16 16:00 Room Air 07/01/16 15:33 36.6 101 20 129/66 97 Room Air 07/01/16 13:30 77 07/01/16 12:00 Room Air 07/01/16 11:52 36.7 82 20 101/61 97 Nasal Cannula 2.0 Physical Exam General Appearance: WD/WN, no apparent distress Neck: supple, no JVD Respiratory/Chest: + crackles (left base, vesicular breath sounds elsewhere) Cardiovascular: no edema, no murmur, + irregularly irregular Abdomen: normal bowel sounds, non tender, soft Extremities: no pedal edema, no calf tenderness, normal capillary refill, + pertinent finding (Chronic joint inflammation changes from RA) Neurologic/Psychiatric: alert, oriented x 3 Skin: normal color, warm/dry, no rash Laboratory Results 07/02/16 06:40 Red Blood Count 3.48, Mean Corpuscular Volume 100.0, Mean Corpuscular Hemoglobin 33.6, Mean Corpuscular Hemoglobin Concent 33.6, Mean Platelet Volume 9.7, Neutrophils (%) (Auto) 75.7, Lymphocytes (%) (Auto) 18.5, Monocytes (%) ( Auto) 3.9, Eosinophils (%) (Auto) 0.6, Basophils (%) (Auto) 0.2, Neutrophils # ( Auto) 4.84, Lymphocytes # (Auto) 1.18, Monocytes # (Auto) 0.25, Eosinophils # ( Auto) 0.04, Basophils # (Auto) 0.01 07/02/16 06:40 Test 07/02/16 06:40 White Blood Count 6.39 K/uL (4.8-10.8) Red Blood Count 3.48 M/uL (4.2-5.4) Hemoglobin 11.7 g/dL (12.0-16.0) Hematocrit 34.8 % (37-47) Mean Corpuscular Volume 100.0 fL (80-100) Mean Corpuscular Hemoglobin 33.6 pg (25-34) Mean Corpuscular Hemoglobin Concent 33.6 g/dl (32-36) Platelet Count 257 K/uL (130-400) Mean Platelet Volume 9.7 fL (7.4-10.4) Neutrophils (%) (Auto) 75.7 % Lymphocytes (%) (Auto) 18.5 % Monocytes (%) (Auto) 3.9 % Eosinophils (%) (Auto) 0.6 % Basophils (%) (Auto) 0.2 % Neutrophils # (Auto) 4.84 K/uL (1.4-6.5) Lymphocytes # (Auto) 1.18 K/uL (1.2-3.4) Monocytes # (Auto) 0.25 K/uL (0.11-0.59) Eosinophils # (Auto) 0.04 K/uL (0-0.5) Basophils # (Auto) 0.01 K/uL (0-0.2) RDW Standard Deviation 63.1 fL (36.4-46.3) RDW Coefficient of Variation 17.5 % (11.5-14.5) Immature Granulocyte % (Auto) 1.1 % Immature Granulocyte # (Auto) 0.07 K/uL (0.00-0.02) Prothrombin Time 28.6 SECONDS (9.0-12.0) Prothromb Time International Ratio 2.6 (0.9-1.1) Activated Partial Thromboplast Time 58.4 SECONDS (21.0-31.0) Partial Thromboplastin Ratio 2.2 Anion Gap 11.0 mmol/L (3-11) Est Creatinine Clear Calc Drug Dose 76.7 ml/min Estimated GFR () 103.0 Estimated GFR (Non- 88.8 BUN/Creatinine Ratio 18.2 (10-20) Calcium Level 7.9 mg/dl (8.5-10.1) Magnesium Level 2.0 mg/dl (1.8-2.4) Total Bilirubin 0.4 mg/dl (0.2-1) Direct Bilirubin 0.1 mg/dl (0-0.2) Aspartate Amino Transf (AST/SGOT) 19 U/L (15-37) Alanine Aminotransferase (ALT/SGPT) 9 U/L (12-78) Alkaline Phosphatase 56 U/L (45-117) Total Protein 6.0 gm/dl (6.4-8.2) Albumin 2.3 gm/dl (3.4-5.0) Date/Time Source Procedure Growth Status 07/01/16 10:47 Nasal MRSA DNA Surveillance Screen - Final Specimen Negative for MRSA by DNA Probe Complete Assessment and Plan 76 yo female with known atrial flutter/fibrillation, shortness of breath and fatigue. Possible left lower lobe pneumonia - Questionable infiltrate on CXR with b/l pulmonary edema. Mild right sided crackles on examination does not correlate with CXR, will repeat 2 view CXR to assess continuing need to cover for pneumonia. - Continue levaquin - Blood cultures negative @ 24 hours Cystitis/UTI - suprapubic pain with UA suggestive of UTI - Continue Levaquin. stop ceftriaxone. can be - Urine culture - gram negative bacilli, await sensitivities Elevated aPPT - appears to high to be effect of warfarin. Mixing study ordered. ?lupus anticoagulant, if does not correct will investigate for this. - Consult hematology Atrial flutter with RVR, variable block and hypotension in the ER Appreciate cardiology recommendations - Cardizem stopped due to low BP - Started loading with digoxin yesterday but stopped due to concern for HR in 40 's (I did not find this on telemetry but will defer restarting digoxin to Cardiology) Coronary artery disease / history of A. fib - serial cardiac enzymes negative - usually on anticoagulation with warfarin, currently on hold due to Levaquin use and unusual therapeutic aPTT - echo pending Hypotension - now resolved but still feeling occasional light headedness - holding home medications amlodipine and lisinopril. Continue atenolol 25 mg PO daily for rate control. GERD/gastritis - mild epigastric pain on examination. Pantoprazole was increased from 20-40mg PO. Hypercholesterolemia - continue simvastatin 20 mg PO daily Rheumatoid arthritis - continue folic acid 1 mg by mouth daily. - Holding infliximab and methotrexate due to acute illness - Continue home dose prednisone; 5 mg QAM and 5(increased from 2.5)mg in afternoon Insomnia --continue clonazepam 0.5 mg by mouth every afternoon. Code - Full VTE Prophylaxis - INR and aPTT within therapeutic range Disposition - continue on telemetry due to HR 110-120. History Resident Physician Supervision Note: I was present with Dr. Hdz during the history and exam. I discussed the case with the resident and agree with the findings and plan as documented in the note. Any exceptions or clarifications are listed here. Pt seen and examined at bedside. No acute events overnight. Fatigue has improved since yesterday and she feels more like her baseline. Reports no PURDY, chest pain, lightheadedness, bruising/bleeding. General Appearance: WD/WN, no apparent distress Respiratory: chest non-tender, lungs clear, normal breath sounds, no respiratory distress Cardiovascular: normal peripheral pulses, no edema, no murmur, irregularly irregular Assessment/Plan 76 y/o male h/o CAD, atrial fibrillation presents w/ LLL PNA and atrial fibrillation w/ RVR Atrial fibrillation w/ RVR - Cardiology aware and input appreciated. Off IV diltiazem. Continue digoxin, atenolol BID. LLL PNA - continue levofloxacin, d/c ceftriaxone Elevated aPTT - Hematology consulted and input appreciated. Mixing study today. GERD - PPI HLD - continue simvastatin RA - continue folic acid. Pred at 5mg BID Insomnia - takes clonazepam, will continue but strongly recommend alternative sleep aid Resident Tracking Resident Involvement: Resident Care Provided Care Provided: Adult Hospital Medicine
[2016-07-02] MEDS: LACTOBACILLUS ACIDOPHILUS (FLORANEX) TAB PO SCH ×3 (09:17→17:09)
[2016-07-02] MEDS: CALCIUM 600MG + VIT D 400 IU TAB PO SCH (09:17)
[2016-07-02] MEDS: PANTOprazole SOD 40 MG TAB PO SCH (09:18)
[2016-07-02] MEDS: ACETAMINOPHEN 500 MG TAB PO SCH ×2 (09:19→21:11)
[2016-07-02] MEDS: SIMVASTATIN 20 MG TAB PO SCH (09:19)
--- NOTE | 2016-07-02 10:08 | DIAGNOSTIC IMAGING REPORT ---
CHEST 2 VIEWS ROUTINE CLINICAL HISTORY: ?developing consolidation on CXR dyspnea COMPARISON STUDY: 06/30/2016 FINDINGS: Mild stable primary megaly. Fixed lateral hernia. Minimal interstitial infiltrate left base. This is improved from the prior study. Mild chronic pulmonary vascular congestion. Severe degenerative change of the shoulders bilaterally. IMPRESSION: Mildly improved exam. Improved aeration left lung base. Improved pulmonary venous congestion. Electronically signed by: Eugenio Arredondo M.D. 07/02/2016 10:07 AM Dictated Date/Time: 07/02/2016 10:05 AM
--- NOTE | 2016-07-02 10:26 | CARDIOLOGY PROGRESS NOTE ---
DATE: 07/02/2016 DATE: 07/02/2016. SUBJECTIVE: Mrs. Mercedes is resting chest pain, dyspnea, or palpitations. OBJECTIVE: VITAL SIGNS: Blood pressure is 147/81 with pulse varying between 90 and 120 beats per minute. Respiratory rate is 18. The patient is afebrile at 36.4 degrees Celsius. Saturation is 96% on room air. NECK: Supple with full carotid upstrokes. No obvious bruits. Jugular venous pressure is difficult to assess. CARDIOVASCULAR EXAMINATION: Reveals an irregular, irregular rhythm with distant heart sounds. No obvious murmurs. LUNGS: Clear without rales, rhonchi, or wheezes. ABDOMEN: Soft without bruits. EXTREMITIES: Reveal intact radial artery pulses bilaterally. There is no peripheral edema. LABORATORY DATA: CBC notes hemoglobin of 11.7, hematocrit 34.8, white count 6.3, platelet count 257,000. Electrolytes note a sodium of 139, potassium 3.8, chloride 110, bicarb 18, BUN 11, creatinine 0.62, glucose 98. INR is 2.6. laboratory monitor notes atrial fibrillation with a variable ventricular response, but generally elevated. No pauses or inappropriate bradycardias. IMPRESSION AND PLAN: 1. Permanent atrial fibrillation -- her ventricular response is somewhat elevated. Would likely restart her digoxin hoping to better control her ventricular response. This may be temporary as her ventricular response may improve as her pneumonia and clinical status improve. 2. Left lower lobe pneumonia -- continue intravenous Levaquin. 3. Hypertension -- controlled. 4. Hypercholesterolemia -- continue simvastatin. 5. Rheumatoid arthritis.
[2016-07-02] MEDS: GUAIFENESIN 600 MG TABCR PO SCH ×2 (12:04→21:11)
[2016-07-02] MEDS ORDERED: WARFARIN SOD 2 MG TAB PO SCH (16:00)
--- NOTE | 2016-07-02 16:20 | ECHOCARDIOGRAM REPORT ---
*NOTICE TO RECEIVING LIBERTARIAN AGENCY This information is strictly Confidential and protected under [place] law. [place] law prohibits you from making any further disclosure of this information unless further disclosure is expressly permitted by the written consent of the person to whom it pertains or is authorized by law. A general authorization for the release of medical or other information is not sufficient for this purpose. Hospital accepts no responsibility if the information is made available to any other person, INCLUDING THE PATIENT. Interpretation Summary * Name: MOO JAIMES Study Date: 07/02/2016 01:17 PM BP: 119/67 mmHg * Patient Location: .2T\S\S235\S\1 HR: 98 * : 1940 (M/d/yyyy) Gender: Female Height: 64 in * Age: 76 yrs Ethnicity: [place] Weight: 146 lb * Ordering Physician: Lemuel Alfaro * Referring Physician: Self, Referred * Performed By: Sydni Moreno RCS * * Reason For Study: A-FLUTTER * BSA: 1.7 m2 * -- Conclusions -- * Left ventricular systolic function is borderline reduced. * There is mild to moderate mitral regurgitation. * Right ventricular systolic pressure is elevated at >60mmHg. * Compared to a study from 09/2012, there is little change Procedure Details * A complete two-dimensional transthoracic echocardiogram was performed (2D, M-mode, Doppler and color flow Doppler). Left Ventricle * The left ventricle is normal in size. * There is normal left ventricular wall thickness. * Left ventricular systolic function is borderline reduced. * Ejection Fraction = 45-50%. * Unable to assess diastolic function due to arrhythmia Right Ventricle * The right ventricle is normal in size and function. Atria * The left atrial size is normal. * Right atrial size is normal. Mitral Valve * The mitral valve is grossly normal. * There is mild to moderate mitral regurgitation. Tricuspid Valve * The tricuspid valve is not well visualized. * There is mild tricuspid regurgitation. * Right ventricular systolic pressure is elevated at >60mmHg. Aortic Valve * The aortic valve is not well visualized. * No hemodynamically significant valvular aortic stenosis. * There is no significant aortic regurgitation. Great Vessels * The aortic root is normal size. Pericardium/Pleural * There is no pericardial effusion. MMode 2D Measurements and Calculations IVSd 0.84 cm IVSs 1.1 cm LVIDd 3.3 cm LVIDs 2.8 cm LVPWd 0.97 cm LVPWs 1.1 cm IVS/LVPW 0.87 FS 16.7 % EDV(Teich) 45.1 ml ESV(Teich) 28.9 ml EF(Teich) 35.9 % EDV(cubed) 36.9 ml ESV(cubed) 21.4 ml EF(cubed) 42.1 % % IVS thick 30.8 % % LVPW thick 17.2 % LV mass(C)d 83.0 grams LV mass(C)dI 48.5 grams/m\S\2 LV mass(C)s 87.6 grams LV mass(C)sI 51.2 grams/m\S\2 CO(Teich) 1.6 l/min CI(Teich) 0.93 l/min/m\S\2 SV(Teich) 16.2 ml SI(Teich) 9.5 ml/m\S\2 CO(cubed) 1.5 l/min CI(cubed) 0.89 l/min/m\S\2 SV(cubed) 15.5 ml SI(cubed) 9.1 ml/m\S\2 Ao root diam 3.1 cm Ao root area 7.6 cm\S\2 ACS 1.5 cm LA dimension 3.7 cm LA/Ao 1.2 LVAd ap4 25.1 cm\S\2 LVLd ap4 7.3 cm EDV(MOD-sp4) 72.0 ml LVAs ap4 17.1 cm\S\2 LVLs ap4 6.1 cm ESV(MOD-sp4) 43.0 ml EF(MOD-sp4) 40.3 % LVAd ap2 21.6 cm\S\2 LVLd ap2 6.3 cm EDV(MOD-sp2) 60.0 ml LVAs ap2 17.4 cm\S\2 LVLs ap2 6.7 cm ESV(MOD-sp2) 37.0 ml EF(MOD-sp2) 38.3 % CO(MOD-sp4) 2.8 l/min CI(MOD-sp4) 1.7 l/min/m\S\2 SV(MOD-sp4) 29.0 ml SI(MOD-sp4) 16.9 ml/m\S\2 CO(MOD-sp2) 2.3 l/min CI(MOD-sp2) 1.3 l/min/m\S\2 SV(MOD-sp2) 23.0 ml SI(MOD-sp2) 13.4 ml/m\S\2 Doppler Measurements and Calculations MV E max amadeo 102.7 cm/sec MV P1/2t max amadeo 123.3 cm/sec MV P1/2t 56.8 msec MVA(P1/2t) 3.9 cm\S\2 MV dec slope 636.4 cm/sec\S\2 MV dec time 0.18 sec Ao V2 max 120.6 cm/sec Ao max PG 5.8 mmHg Ao max PG (full) 2.3 mmHg LV V1 max PG 3.5 mmHg LV V1 max 93.5 cm/sec PA V2 max 82.1 cm/sec PA max PG 2.7 mmHg TR max amadeo 357.9 cm/sec
[2016-07-02 17:32] LABS: INR 2.4 (0.9-1.1); PROTHROMBIN TIME (PATIENT) 26.8 SECONDS (9.0-12.0)
[2016-07-02 17:33] LABS: PARTIAL THROMBOPLASTIN RATIO 2.1
[2016-07-02 17:34] LABS: MIXING STUDY INTERPRET PT PT CORRECTED; PAT:SHPL 37 PT 13.3 SECONDS; PAT:SHPL IMM PT 13.3 SECONDS; PT CALC 37 4.1; PT CALC IMM 4.9; SHPL 37 PT 12.2 SECONDS
[2016-07-02 17:35] LABS: MIXING STUDY INTERPRET APTT APTT CORRECTED; PAT:SHPL 37 PTT 33.1 SECONDS; PAT:SHPL IMMED PTT 32.3 SECONDS; PTT CALC 37 9.2; PTT CALC IMM 8.2; SHPL IMMED PTT 27.8 SECONDS
[2016-07-02] MEDS ORDERED: DIGOXIN 0.25 MG TAB PO ONE ×2 (18:30→22:30)
[2016-07-02] MEDS: LEVOFLOXACIN / D5W 500 MG in PREMIXED IN D5W 100 ML IV SCH (21:09)
[2016-07-02] MEDS: CLONAZEPAM 0.5 MG TAB PO SCH (21:13)
[2016-07-03] VITALS (8 sets, daily range): BP systolic 115–160; BP diastolic 62–98; PULSE 75–85; TEMP 36.4–36.7; O2SAT 96–98
[2016-07-03 06:50] LABS: BASO % 0.3 %; BASO ABS # 0.02 K/uL (0-0.2); COMPLETE YES; EOS % 2.3 %; HEMATOCRIT 33.9 % (37-47); IG% 1.1 %; LYMPH ABS # 1.91 K/uL (1.2-3.4); MEAN CORPUSCULAR HEMOGLOBIN 32.7 pg (25-34); MEAN CORPUSCULAR HGB CONC 33.3 g/dl (32-36); MEAN PLATELET VOLUME 9.4 fL (7.4-10.4); MONO % 11.6 %; NEUT % 57.7 %; PLATELET COUNT 262 K/uL (130-400); RED BLOOD COUNT 3.46 M/uL (4.2-5.4); WHITE BLOOD COUNT 7.07 K/uL (4.8-10.8)
[2016-07-03 06:59] LABS: INR 2.2 (0.9-1.1); PARTIAL THROMBOPLASTIN RATIO 1.7; PROTHROMBIN TIME (PATIENT) 24.4 SECONDS (9.0-12.0)
[2016-07-03] MEDS: LACTOBACILLUS ACIDOPHILUS (FLORANEX) TAB PO SCH ×3 (07:43→16:59)
[2016-07-03] MEDS: CALCIUM 600MG + VIT D 400 IU TAB PO SCH (07:43)
[2016-07-03] MEDS: GUAIFENESIN 600 MG TABCR PO SCH ×2 (07:44→20:23)
[2016-07-03] MEDS: PANTOprazole SOD 40 MG TAB PO SCH (07:44)
[2016-07-03] MEDS: SIMVASTATIN 20 MG TAB PO SCH (07:45)
[2016-07-03] MEDS: ACETAMINOPHEN 500 MG TAB PO SCH ×2 (07:45→20:23)
[2016-07-03 07:59] LABS: ALKALINE PHOSPHATASE 45 U/L (45-117); ALT/SGPT 13 U/L (12-78); AST/SGOT 26 U/L (15-37); BUN/CREATININE RATIO 23.4 (10-20); CARBON DIOXIDE 21 mmol/L (21-32); CHLORIDE 112 mmol/L (98-107); CREATININE 0.78 mg/dl (0.60-1.20); GLUCOSE 92 mg/dl (70-99); MAGNESIUM 2.3 mg/dl (1.8-2.4); POTASSIUM 3.5 mmol/L (3.5-5.1); SODIUM 143 mmol/L (136-145)
[2016-07-03 08:00] LABS: BLOOD UREA NITROGEN 18 mg/dl (7-18)
--- NOTE | 2016-07-03 09:44 | Progress Note ---
Progress Note Date of Service: Jul 03, 2016. Subjective: The patient reports feeling good this morning. She is awake, alert, and conversational. She denies chest pain or SOB. Appetite is good. She really has no complaints at the moment. We discussed eventual disposition - she is pretty much chair to bed secondary to her end stage RA. Her house is fairly well equipped in terms of handicapped items already. Review of Systems Problem List Medical Problems: (1) Anticoagulated on Coumadin Status: Acute (2) Atrial fibrillation with RVR Status: Acute (3) Diffuse abdominal pain Status: Acute (4) Pneumonia involving left lung Status: Acute (5) Supratherapeutic INR Status: Acute General Appearance: no apparent distress Constitutional: acknowledges: weakness, denies: diaphoresis, fever EENTM: acknowledges: no symptoms reported Respiratory: negative: cough, short of breath, wheezing Cardiovascular: denies chest pain Gastrointestinal/Abdominal: negative: constipation, diarrhea, nausea Musculoskeletal: positive: joint pain, joint swelling All Other Systems: Reviewed and Negative Vital Signs Past 8 Hours: Last 8 Hrs Date Time Temp Pulse Resp B/P Pulse Ox O2 Delivery O2 Flow Rate FiO2 07/03/16 08:00 Room Air 07/03/16 08:00 36.7 77 16 160/80 97 Room Air 07/03/16 04:50 36.5 79 16 143/88 97 Room Air 07/03/16 04:00 Room Air Physical Exam General Appearance: WD/WN, no apparent distress Ears, Nose, Throat: normal ENT inspection, hearing grossly normal Neck: non-tender, full range of motion, supple, normal inspection, trachea midline Respiratory: chest non-tender, lungs clear (Decreased bases but this improves with coaching of a deep breath.), normal breath sounds Cardiovascular: normal peripheral pulses, irregularly irregular Gastrointestinal: normal bowel sounds, non tender, soft Extremities: non-tender, normal inspection Neurologic/Psychiatric: alert, normal mood/affect, oriented x 3 Skin Characteristics: normal color Medications Medications: Acetaminophen (Tylenol Tab) 500 mg QAM PO Last administered on 07/03/16 07:45; Admin Dose 500 MG; Start 07/01/16 at 09:00; Stop 07/31/16 at 08:59 Acetaminophen (Tylenol Tab) 650 mg Q4H PRN PO Last administered on 07/01/16 05 :26; Admin Dose 650 MG; Start 06/30/16 at 21:00; Stop 07/30/16 at 20:59 Acetaminophen (Tylenol Tab) 1,000 mg QPM PO Last administered on 07/02/16 21:11 ; Admin Dose 1,000 MG; Start 07/01/16 at 21:00; Stop 07/31/16 at 20:59 Atenolol (Tenormin Tab) 25 mg DAILY PO Last administered on 07/03/16 07:45; Admin Dose 25 MG; Start 07/02/16 at 09:00; Stop 08/01/16 at 08:59 Calcium/Vitamin D (Caltrate Plus Tab) 1 tab QAM PO Last administered on 07:43; Admin Dose 1 TAB; Start 07/01/16 at 09:00; Stop 07/31/16 at 08:59 Clonazepam (Klonopin Tab) 0.5 mg QPM PO Last administered on 07/02/16 21:13; Admin Dose 0.5 MG; Start 06/30/16 at 21:00; Stop 07/30/16 at 20:59 Codeine Phosphate/ Guaifenesin (Robitussin-AC Sugar Free Syrup) 10 ml Q6H PRN PO; Start 06/30/16 at 20:45; Stop 07/30/16 at 20:44 Folic Acid (Folvite Tab) 1 mg DAILY PO Last administered on 07/03/16 07:43; Admin Dose 1 MG; Start 07/01/16 at 09:00; Stop 07/31/16 at 08:59 Guaifenesin (Mucinex Contr Rel Tab) 600 mg Q12 PO Last administered on 07/03/16 07:44; Admin Dose 600 MG; Start 07/02/16 at 11:00; Stop 08/01/16 at 10:59 Lactobacillus Acidophilus (Floranex Tab) 4 tab TIDM PO Last administered on 07:43; Admin Dose 4 TAB; Start 07/01/16 at 07:30; Stop 07/31/16 at 07:59 Levofloxacin/Prmx (Levaquin / D5W/ Premixed D5W) 100 ml @ 100 mls/hr Q24H IV Last administered on 07/02/16 21:09; Admin Dose 100 MLS/HR; Start 07/01/16 at 20:00; Stop 07/07/16 at 19:59 Nitroglycerin (Nitrostat Tab) 0.4 mg UD PRN SL; Start 06/30/16 at 21:00; Stop 07/30/16 at 20:59 Ondansetron HCl 4 mg 4 mg Q6H PRN IV; Start 06/30/16 at 21:00; Stop 07/30/16 at 20:59 Pantoprazole Sodium (Protonix Tab) 40 mg QAM PO Last administered on 07/03/16 07 :44; Admin Dose 40 MG; Start 07/01/16 at 09:00; Stop 07/31/16 at 08:59 Prednisone (PredniSONE TAB) 5 mg DAILY@1300 PO Last administered on 07/02/16 12 :04; Admin Dose 5 MG; Start 07/02/16 at 13:00; Stop 08/01/16 at 12:59 Prednisone (PredniSONE TAB) 5 mg QAM PO Last administered on 07/03/16 07:44; Admin Dose 5 MG; Start 07/02/16 at 09:00; Stop 08/01/16 at 08:59 Senna (Senokot Tab) 8.6 mg DAILY PRN PO Last administered on 07/01/16 07:44; Admin Dose 8.6 MG; Start 06/30/16 at 20:45; Stop 07/30/16 at 20:44 Simethicone (Mylicon Chew Tab) 80 mg QID PRN PO Last administered on 07/01/16 07:43; Admin Dose 80 MG; Start 06/30/16 at 20:45; Stop 07/30/16 at 20:44 Simvastatin (Zocor Tab) 20 mg DAILY PO Last administered on 07/03/16 07:45; Admin Dose 20 MG; Start 07/01/16 at 09:00; Stop 07/31/16 at 08:59 Zolpidem Tartrate (Ambien Tab) 5 mg HSZ PRN PO; Start 06/30/16 at 21:00; Stop 07/30/16 at 20:59 Laboratory Data Laboratory Data: Results Past 24 Hours Test 07/02/16 15:05 07/03/16 06:10 07/03/16 08:25 Range/Units Prothrombin Time 26.8 24.4 9.0-12.0 SECONDS Prothromb Time International Ratio 2.4 2.2 0.9-1.1 Activated Partial Thromboplast Time 55.2 44.4 21.0-31.0 SECONDS Partial Thromboplastin Ratio 2.1 1.7 PT Mixing Studies Interpretation PT CORRECTED PTT Mixing Studies Interpretation APTT CORRECTED White Blood Count 7.07 4.8-10.8 K/uL Red Blood Count 3.46 4.2-5.4 M/uL Hemoglobin 11.3 12.0-16.0 g/dL Hematocrit 33.9 37-47 % Mean Corpuscular Volume 98.0 80-100 fL Mean Corpuscular Hemoglobin 32.7 25-34 pg Mean Corpuscular Hemoglobin Concent 33.3 32-36 g/dl Platelet Count 262 130-400 K/uL Mean Platelet Volume 9.4 7.4-10.4 fL Neutrophils (%) (Auto) 57.7 % Lymphocytes (%) (Auto) 27.0 % Monocytes (%) (Auto) 11.6 % Eosinophils (%) (Auto) 2.3 % Basophils (%) (Auto) 0.3 % Neutrophils # (Auto) 4.08 1.4-6.5 K/uL Lymphocytes # (Auto) 1.91 1.2-3.4 K/uL Monocytes # (Auto) 0.82 0.11-0.59 K/uL Eosinophils # (Auto) 0.16 0-0.5 K/uL Basophils # (Auto) 0.02 0-0.2 K/uL RDW Standard Deviation 62.0 36.4-46.3 fL RDW Coefficient of Variation 17.4 11.5-14.5 % Immature Granulocyte % (Auto) 1.1 % Immature Granulocyte # (Auto) 0.08 0.00-0.02 K/uL Sodium Level 143 136-145 mmol/L Potassium Level 3.5 3.5-5.1 mmol/L Chloride Level 112 98-107 mmol/L Carbon Dioxide Level 21 21-32 mmol/L Anion Gap 10.0 3-11 mmol/L Blood Urea Nitrogen 18 7-18 mg/dl Creatinine 0.78 0.60-1.20 mg/dl Est Creatinine Clear Calc Drug Dose 59.6 ml/min Estimated GFR () 86.8 Estimated GFR (Non- 74.9 BUN/Creatinine Ratio 23.4 10-20 Random Glucose 92 70-99 mg/dl Calcium Level 8.0 8.5-10.1 mg/dl Magnesium Level 2.3 1.8-2.4 mg/dl Total Bilirubin 0.4 0.2-1 mg/dl Direct Bilirubin 0-0.2 mg/dl Aspartate Amino Transf (AST/SGOT) 26 15-37 U/L Alanine Aminotransferase (ALT/SGPT) 13 12-78 U/L Alkaline Phosphatase 45 45-117 U/L Total Protein 6.0 6.4-8.2 gm/dl Albumin 2.4 3.4-5.0 gm/dl Chemistry Specimen Hemolysis Assessment and Plan Left lower lobe pneumonia Levaquin, change to PO today Blood cultures pending Cystitis/UTI Levaquin, change to PO today Sensitive to Levaquin Elevated aPPT Question effect of warfarin. Mixing study ordered. Hematology consulted Atrial flutter with RVR, variable block and hypotension in the ER Rate controlled today on beta [place] only. Cardiology consult appreciated. If HR remains stable, will likely move to medical floor for continued care. Coronary artery disease / history of A. fib Cardiac Enzymes negative GERD/gastritis Pantoprazole was increased from 20-40mg PO. Hypercholesterolemia Simvastatin 20 mg PO daily Rheumatoid arthritis Continue folic acid 1 mg by mouth daily. Holding infliximab and methotrexate due to acute illness Continue home dose prednisone; 5 mg QAM and 5(increased from 2.5)mg in afternoon Insomnia Clonazepam 0.5 mg by mouth every afternoon. Code Full VTE Prophylaxis INR and aPTT within therapeutic range
[2016-07-03] MEDS ORDERED: NURSING VERBAL MED ORDER ONE (14:00)
[2016-07-03] MEDS ORDERED: PHYTONADIONE 5 MG TAB PO ONE (15:00)
--- NOTE | 2016-07-03 15:04 | ONCOLOGY CONSULTATION ---
DATE OF CONSULTATION: 07/03/2016 DATE OF CONSULTATION: 07/03/2016. REASON FOR CONSULTATION: Coagulopathy. HISTORY OF PRESENT ILLNESS: Mary is a 76-year-old female who was admitted to [facility] on 06/30/2016 with worsening fatigue, generalized weakness and shakiness. She states that she has not been feeling well for the past 4 weeks. She recently had an assessment by her primary care physician because of abdominal pain. She also reports a productive cough with yellow mucus production. The patient has history of atrial fibrillation and is currently on Coumadin anticoagulation. According to the hospitalist service her Coumadin had been on hold because of prolonged PT and INR. She is receiving broad spectrum antimicrobials and the medical staff noticed her PT/INR and also PTT increasing over time. I was contacted by phone and recommended mixing studies which were performed and totally corrected. These findings would suggest deficiency state specifically vitamin K deficiency secondary to prolonged antibiotics. She is scheduled to receive Coumadin dosing tonight. I will also incorporate very low dose vitamin K to stabilize the anticoagulant effect in light of her vitamin K deficient state. PAST MEDICAL HISTORY: Again, significant for atrial fibrillation, asthma. She has a presumptive diagnosis of pneumonia and is currently receiving antibiotics. 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 PAST SURGICAL HISTORY: Total knee replacement. MEDICATIONS: Prior to admission include Tylenol 1000 mg p.o. q.p.m., 500 mg p.o. q.a.m., amlodipine 10 mg p.o. every day, atenolol 25 mg p.o. every day, calcium carbonate with vitamin D 1 tablet p.o. every day. She had been on Keflex 4 tablets p.o. as directed, Klonopin 0.5 mg p.o. q.a.m., folic acid 1 mg p.o. every day, infliximab 100 mg IV q. 8 weeks, lisinopril 20 mg p.o. every day, methotrexate 6 tablets p.o. q. weekly, Protonix 20 mg p.o. daily, prednisone 2.5 mg q.p.m., 5 mg p.o. q.a.m., probiotic 1 capsule p.o. daily, simvastatin 20 mg p.o. every day, warfarin alternating doses of 2 and 1 mg p.o. every day. ALLERGIES: AMOXICILLIN, AUGMENTIN, PROCHLORPERAZINE. REVIEW OF SYSTEMS: Negative for fevers, chills or sweats. She is not anorexic or losing weight. SKIN: Thin skin secondary to chronic prednisone use, stasis dermatitis noted, otherwise no history of dermatoses. HEAD, EYES, EARS, NOSE, AND THROAT: Negative for headaches, lightheadedness or dizziness. No visual or hearing deficits. No sinus symptoms, sore throat or dysphagia. LYMPH: No history of lymphoproliferative disorder. CARDIAC: Positive for atrial fibrillation. No current angina or palpitations. PULMONARY: Negative for COPD. Positive for pneumonia diagnosis. She is not presently short of breath or dyspnea. No cough or hemoptysis presently. GASTROINTESTINAL: Negative for abdominal pain, nausea, vomiting, diarrhea or constipation, hematochezia or melanotic stools. GENITOURINARY: No hematuria, dysuria, urinary incontinence. ENDOCRINE: Negative for diabetes or thyroid disease. MUSCULOSKELETAL: Positive for rheumatoid arthritis and associated arthralgias. NEUROLOGIC: Negative for seizure, stroke, or migraine headache. HEMATOLOGIC: Positive for prolonged PT and PTT. PHYSICAL EXAMINATION: GENERAL: Very pleasant 76-year-old female patient in no acute distress. VITAL SIGNS: Temperature 36.6, pulse 81, respirations 18, blood pressure 119/73. SKIN: Warm, dry, noncyanotic. Again, turgor is poor. HEAD, EYES, EARS, NOSE, AND THROAT: Head atraumatic, normocephalic. Eyes PERRLA, EOMI. Sclerae nonicteric. No conjunctival injection. Nares are patent without rhinorrhea or discharge. Throat clear. No buccal lesions or ulcerations otherwise. NECK: Supple without JVD or thyromegaly. LYMPH: No cervical, supraclavicular or axillary palpable nodes. HEART: Irregularly irregular. No clicks or murmurs. LUNGS: Clear to auscultation bilaterally. ABDOMEN: Soft, nontender, nondistended, without palpable hepatosplenomegaly. EXTREMITIES: No calf tenderness or swelling. No clubbing, cyanosis or edema. MCP joints with ulnar deviation classic for RA. NEUROLOGICAL: She is awake, alert and oriented x3. Cranial nerves II-XII are intact. No gross motor or sensory deficits are noted. DIAGNOSES: 1. Atrial flutter with rapid ventricular rate. 2. Left lower lobe pneumonia. 3. Gastroesophageal reflux disease. 4. Hypercholesterolemia. 5. Rheumatoid arthritis. 6. 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 PLAN: Mary is a very pleasant 76-year-old female patient from [place] who was admitted to [facility] in late June. She has several comorbid issues including atrial flutter and active pneumonia currently receiving broad spectrum antibiotics. Because she was supratherapeutic Coumadin was held and PT and INR as well as PTT began to rise. I was contacted by the hospitalist service and instructed them to carry out mixing studies which totally corrected suggestive of factor deficiency state. The patient was previously on relatively low dose Coumadin alternating 1 and 2 mg but for the most part her INR has been readily controlled. It would make sense with broad spectrum antibiotics, conceivably she is vitamin K deficient, which will result in supratherapeutic Coumadin levels. Therefore, while Ms. Mercedes requires full dose anticoagulation carefully incorporate very low dose vitamin K with low dose Coumadin and monitor her PT and INR as well as PTT closely. I suggest requesting outpatient consult with Dr. Maguire Will continue to monitor daily PT, INR and PTT and will follow along with you during her hospital stay. There is no indication for factor assay workup or seek out an inhibitor at this time. Thank you very much for allowing us to participate in her care. If you have any questions or concerns, feel free to contact me at any time. CORIE
[2016-07-03] MEDS ORDERED: WARFARIN SOD 2 MG TAB PO SCH (16:00)
[2016-07-03] MEDS ORDERED: DIGOXIN 0.125 MG TAB PO SCH (16:00)
[2016-07-03] MEDS: LEVOFLOXACIN / D5W 500 MG in PREMIXED IN D5W 100 ML IV SCH (20:00)
[2016-07-03] MEDS: CLONAZEPAM 0.5 MG TAB PO SCH (20:27)
[2016-07-03] MEDS: SENNA 8.6 MG TAB PO PRN (20:27)
[2016-07-04 00:30] VITALS: O2SAT 98
[2016-07-04 06:01] LABS: INR 1.5 (0.9-1.1); PROTHROMBIN TIME (PATIENT) 16.8 SECONDS (9.0-12.0)
[2016-07-04 07:18] VITALS: BP 138/58; PULSE 69; TEMP 36.6; O2SAT 97
[2016-07-04] MEDS: CALCIUM 600MG + VIT D 400 IU TAB PO SCH (08:36)
[2016-07-04] MEDS: LACTOBACILLUS ACIDOPHILUS (FLORANEX) TAB PO SCH ×3 (08:37→16:27)
[2016-07-04] MEDS: PANTOprazole SOD 40 MG TAB PO SCH (08:39)
[2016-07-04] MEDS: SIMVASTATIN 20 MG TAB PO SCH (08:40)
[2016-07-04] MEDS: ACETAMINOPHEN 500 MG TAB PO SCH ×2 (08:40→21:00)
[2016-07-04] MEDS: GUAIFENESIN 600 MG TABCR PO SCH ×2 (08:41→20:59)
[2016-07-04 10:00] VITALS: O2SAT 97
[2016-07-04] MEDS: LEVOFLOXACIN 500 MG TAB PO SCH (11:09)
--- NOTE | 2016-07-04 11:12 | Progress Note ---
Progress Note Date of Service: Jul 04, 2016. Subjective: The patient this morning is alert and oriented without any complaints. Since I saw her last, she has been moved to the medical floor from the telemetry unit. She tells me that when she woke up this morning about 5 AM she was confused thinking she was at [facility]. She called her and she now realizes that she probably scared him given her confusion. She now realizes where she is and she suspects that she awoke in a middle of a dream and, being in any room , became disoriented. I received a note from nursing to call the patient's daughter. The patient gave me permission to speak with the daughter and I was able to call her this morning. The daughter was concerned with intermittent confusion that the patient has been having and also episodes of slurred speech. While I did not note any slurred speech today, the patient does have a somewhat thickened speech which seems a little worse than yesterday but maybe not far from her baseline. The patient's daughter explains that there has been question whether she has had mini strokes in the past. I reviewed the EMR and she has had no previous neuroimaging completed here at [facility] and according to the daughter she is not aware of any neuro imaging that has been done at outside facilities. Overall, the patient states that she feels better than upon admission. Specifically, she denies cough or abdominal pain, 2 of her most prominent symptoms when she was admitted. Review of Systems Problem List Medical Problems: (1) Anticoagulated on Coumadin Status: Acute (2) Atrial fibrillation with RVR Status: Acute (3) Diffuse abdominal pain Status: Acute (4) Pneumonia involving left lung Status: Acute (5) Supratherapeutic INR Status: Acute General Appearance: no apparent distress Constitutional: acknowledges: weakness, denies: fever EENTM: acknowledges: no symptoms reported Respiratory: negative: cough, short of breath Cardiovascular: denies chest pain Gastrointestinal/Abdominal: negative: abdominal pain Musculoskeletal: positive: joint pain, joint swelling Neurological/Psych: positive: weakness, negative: anxiety, depressed, headache , numbness, paresthesia All Other Systems: Reviewed and Negative Vital Signs Past 8 Hours: Last 8 Hrs Date Time Temp Pulse Resp B/P Pulse Ox O2 Delivery O2 Flow Rate FiO2 07/04/16 10:00 97 Room Air 07/04/16 07:18 36.6 69 18 138/58 97 Room Air Physical Exam General Appearance: no apparent distress Eye Exam: bilateral eye PERRL, bilateral eye normal inspection Ears, Nose, Throat: normal ENT inspection, hearing grossly normal Neck: non-tender, supple, normal inspection, trachea midline Respiratory: chest non-tender, lungs clear, normal breath sounds Cardiovascular: normal peripheral pulses, irregularly irregular Gastrointestinal: non tender, soft Extremities: non-tender Neurologic/Psychiatric: no motor/sensory deficits, alert, normal mood/affect, oriented x 3 Skin Characteristics: normal color Medications Medications: Acetaminophen (Tylenol Tab) 500 mg QAM PO Last administered on 07/04/16 08:40; Admin Dose 500 MG; Start 07/01/16 at 09:00; Stop 07/31/16 at 08:59 Acetaminophen (Tylenol Tab) 1,000 mg QPM PO Last administered on 07/03/16 20:23 ; Admin Dose 1,000 MG; Start 07/01/16 at 21:00; Stop 07/31/16 at 20:59 Atenolol (Tenormin Tab) 25 mg DAILY PO Last administered on 07/04/16 08:39; Admin Dose 25 MG; Start 07/02/16 at 09:00; Stop 08/01/16 at 08:59 Calcium/Vitamin D (Caltrate Plus Tab) 1 tab QAM PO Last administered on 08:36; Admin Dose 1 TAB; Start 07/01/16 at 09:00; Stop 07/31/16 at 08:59 Clonazepam (Klonopin Tab) 0.5 mg QPM PO Last administered on 07/03/16 20:27; Admin Dose 0.5 MG; Start 06/30/16 at 21:00; Stop 07/30/16 at 20:59 Codeine Phosphate/ Guaifenesin (Robitussin-AC Sugar Free Syrup) 10 ml Q6H PRN PO; Start 06/30/16 at 20:45; Stop 07/30/16 at 20:44 Folic Acid (Folvite Tab) 1 mg DAILY PO Last administered on 07/04/16 08:38; Admin Dose 1 MG; Start 07/01/16 at 09:00; Stop 07/31/16 at 08:59 Guaifenesin (Mucinex Contr Rel Tab) 600 mg Q12 PO Last administered on 07/04/16 08:41; Admin Dose 600 MG; Start 07/02/16 at 11:00; Stop 08/01/16 at 10:59 Lactobacillus Acidophilus (Floranex Tab) 4 tab TIDM PO Last administered on 08:37; Admin Dose 4 TAB; Start 07/01/16 at 07:30; Stop 07/31/16 at 07:59 Levofloxacin (Levaquin Tab) 500 mg DAILY@11 PO; Start 07/04/16 at 11:00; Stop 03/20 at 10:59 Nitroglycerin (Nitrostat Tab) 0.4 mg UD PRN SL; Start 06/30/16 at 21:00; Stop 07/30/16 at 20:59 Ondansetron HCl (Zofran Inj) 4 mg Q6H PRN IV; Start 06/30/16 at 21:00; Stop at 20:59 Pantoprazole Sodium (Protonix Tab) 40 mg QAM PO Last administered on 07/04/16 08 :39; Admin Dose 40 MG; Start 07/01/16 at 09:00; Stop 07/31/16 at 08:59 Prednisone (PredniSONE TAB) 5 mg DAILY@1300 PO Last administered on 07/03/16 12: 41; Admin Dose 5 MG; Start 07/02/16 at 13:00; Stop 08/01/16 at 12:59 Prednisone (PredniSONE TAB) 5 mg QAM PO Last administered on 07/04/16 08:43; Admin Dose 5 MG; Start 07/02/16 at 09:00; Stop 08/01/16 at 08:59 Senna (Senokot Tab) 8.6 mg DAILY PRN PO Last administered on 07/03/16 20:27; Admin Dose 8.6 MG; Start 06/30/16 at 20:45; Stop 07/30/16 at 20:44 Simethicone (Mylicon Chew Tab) 80 mg QID PRN PO Last administered on 07/01/16 07:43; Admin Dose 80 MG; Start 06/30/16 at 20:45; Stop 07/30/16 at 20:44 Simvastatin (Zocor Tab) 20 mg DAILY PO Last administered on 07/04/16 08:40; Admin Dose 20 MG; Start 07/01/16 at 09:00; Stop 07/31/16 at 08:59 Warfarin Sodium (Coumadin Tab) 2 mg DAILY@16 PO Last administered on 07/03/16t 15 :52; Admin Dose 2 MG; Start 07/03/16 at 16:00; Stop 08/02/16 at 15:59 Zolpidem Tartrate (Ambien Tab) 5 mg HSZ PRN PO; Start 06/30/16 at 21:00; Stop 07/30/16 at 20:59 Laboratory Data Laboratory Data: Last 24 Hours Test 07/04/16 05:15 Prothrombin Time 16.8 SECONDS Prothromb Time International Ratio 1.5 Assessment and Plan Left lower lobe pneumonia Levaquin, change to PO today Blood cultures negative Cystitis/UTI Change to by mouth Levaquin today. We'll discontinue Rosa catheter tomorrow morning. Confusion, questionable changes in speech Overall, the confusion is markedly improved compared to admission, although she does have some intermittent episodes of confusion that continue. Discussed with daughter who called me by phone earlier this morning. Discussed utility of a MRI, especially since she has not had previous neuro imaging. The daughter will discuss this with the patient's and the patient before proceeding. Elevated aPPT Based on results of mixing studies, likely due to factor deficiency. Hematology consult appreciated, noted addition of low-dose vitamin K. INR today is subtherapeutic, we will just Coumadin. Atrial flutter with RVR, variable block and hypotension in the ER Rate controlled today on beta [place] only. Cardiology consult appreciated. If HR remains stable, will likely move to medical floor for continued care. Coronary artery disease / history of A. fib Cardiac Enzymes negative GERD/gastritis Pantoprazole was increased from 20-40mg PO. Hypercholesterolemia Simvastatin 20 mg PO daily Rheumatoid arthritis Continue folic acid 1 mg by mouth daily. Holding infliximab and methotrexate due to acute illness Continue home dose prednisone; 5 mg QAM and 5(increased from 2.5)mg in afternoon Insomnia Clonazepam 0.5 mg by mouth every afternoon. Code Full VTE Prophylaxis On Coumadin
[2016-07-04] MEDS ORDERED: NURSING VERBAL MED ORDER ONE ×2 (14:30)
--- NOTE | 2016-07-04 14:37 | HEME/ONC PROGRESS NOTE ---
DATE: 07/04/2016 REASON FOR CONSULTATION: Coagulopathy. HISTORY OF PRESENT ILLNESS: Mary is a pleasant 76-year-old female patient who was admitted on 06/30/2016 with worsening fatigue, generalized weakness and shakiness. She was diagnosed with pneumonia and had been on broad spectrum antibiotics for several days. The hospitalist service contacted me pertaining to prolonged PTT. Mixing studies were performed, both of which is totally corrected suggestive of a factor deficiency. I administered 2.5 mg of vitamin K orally yesterday. She received 2 mg of Coumadin last night. Her PT and INR are presently subtherapeutic and will recommend holding further vitamin K and increasing her dose of Coumadin tonight. Clinically, she feels well, otherwise offers no further complaints. Nursing reports no overnight issues. PHYSICAL EXAMINATION: GENERAL: She is in no acute distress. VITAL SIGNS: Temperature 36.6, pulse 69, respiration rate 18, blood pressure 138/58. SKIN: Warm, dry, noncyanotic. HEENT: Oral mucosa without erythema or ulceration. NECK: Supple. HEART: Irregularly irregular. No clicks or murmurs. LUNGS: Clear to auscultation. ABDOMEN: Soft, nontender, nondistended. EXTREMITIES: No clubbing, cyanosis or edema. NEUROLOGIC: Grossly intact. LABORATORY DATA: WBC count 77, hemoglobin 13.3, and platelet count 272,000. PT 16.8, INR 1.5. Chemistries: Sodium 143, potassium 3.5, chloride 112, carbon dioxide 21, BUN 18, and creatinine 0.78. LFTs otherwise unremarkable. Albumin decreased, 2.4. ASSESSMENT: 1. Atrial flutter with a rapid ventricular rate. 2. Left lower lobe pneumonia. 3. 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 PLAN: Mary is a pleasant 76-year-old female patient, admitted for the above clinical issues. I was asked to evaluate her because of prolonged PTT. Her Coumadin had been on hold for several days. During that time, her PT and PTT began to rise. Mixing studies were performed with total correction. Instituted a very low dose of oral vitamin K and asked them to continue Coumadin, as ordered. Based on today's results, will hold further vitamin K and proceed with increase in Coumadin 3 mg tonight. As I suggested, previously, this patient would be an excellent candidate for ____ anticoagulation clinic and strongly recommend referral prior to discharge. Thank you again for allowing us to participate in her care. If you have any questions or concerns, feel free to call me at any time.
[2016-07-04 14:59] VITALS: BP 140/82; PULSE 83; TEMP 36.4; O2SAT 97
[2016-07-04 16:00] VITALS: O2SAT 97
[2016-07-04] MEDS ORDERED: WARFARIN SOD 3 MG TAB PO ONE (16:00)
[2016-07-04] MEDS: WARFARIN SOD 4 MG TAB PO SCH (16:19)
[2016-07-04] MEDS: CLONAZEPAM 0.5 MG TAB PO SCH (20:59)
[2016-07-05] VITALS: O2SAT 97
[2016-07-05 00:19] VITALS: BP 145/85; PULSE 71; TEMP 36.4; O2SAT 97
[2016-07-05 07:38] VITALS: BP 164/93; PULSE 71; TEMP 36.7; O2SAT 97
[2016-07-05] MEDS: CALCIUM 600MG + VIT D 400 IU TAB PO SCH (07:53)
[2016-07-05] MEDS: SIMVASTATIN 20 MG TAB PO SCH (07:54)
[2016-07-05] MEDS: PANTOprazole SOD 40 MG TAB PO SCH (07:55)
[2016-07-05] MEDS: ACETAMINOPHEN 500 MG TAB PO SCH ×2 (07:55→21:26)
[2016-07-05] MEDS: GUAIFENESIN 600 MG TABCR PO SCH ×2 (07:56→21:25)
[2016-07-05] MEDS: LACTOBACILLUS ACIDOPHILUS (FLORANEX) TAB PO SCH ×3 (07:56→16:09)
[2016-07-05 08:06] LABS: HEMATOCRIT 35.9 % (37-47); MEAN CELL VOLUME 98.9 fL (80-100); MEAN CORPUSCULAR HEMOGLOBIN 32.8 pg (25-34); MEAN CORPUSCULAR HGB CONC 33.1 g/dl (32-36); MEAN PLATELET VOLUME 9.2 fL (7.4-10.4); PLATELET COUNT 329 K/uL (130-400); RED BLOOD COUNT 3.63 M/uL (4.2-5.4); WHITE BLOOD COUNT 8.65 K/uL (4.8-10.8)
[2016-07-05 08:17] LABS: INR 1.3 (0.9-1.1); PARTIAL THROMBOPLASTIN RATIO 1.1; PROTHROMBIN TIME (PATIENT) 14.3 SECONDS (9.0-12.0)
[2016-07-05 08:33] LABS: BUN/CREATININE RATIO 26.3 (10-20); CALCIUM 8.3 mg/dl (8.5-10.1); CREATININE 0.83 mg/dl (0.60-1.20); POTASSIUM 3.8 mmol/L (3.5-5.1)
[2016-07-05 09:31] LABS: COMPLETE YES; EOSINOPHIL % 3.5 %; HYPERSEGMENTED POLYS 1+; LYMPH ABS # 1.36 K/uL (1.2-3.4); LYMPHOCYTE % 15.7 %; META ABS # 0.15 K/uL (0-0); METAMYELOCYTE % 1.7 %; NEUTROPHILS % 63.5 %; SMUDGE CELLS PRESENT; VARIANT LYMPHOCYTE % 13.9 %
[2016-07-05] MEDS: LEVOFLOXACIN 500 MG TAB PO SCH (11:24)
--- NOTE | 2016-07-05 12:49 | Hematology/Oncology Prog Note ---
Hematology/Onc Progress Note Date of Service Jul 05, 2016. Diagnoses Atrial fibrillation on Coumadin Pneumonia Coagulopathy Medications Medications Administered Medications (Trade) Dose Ordered Sig/Norman Route Start Time Stop Time Status Last Admin Dose Admin Acetaminophen (Tylenol Tab) 1,000 mg STK-MED ONCE PO 06/30/16 18:33 06/30/16 18:34 DC 06/30/16 18:30 1,000 MG Diltiazem HCl (Cardizem Inj) 25 mg STK-MED ONCE .ROUTE 06/30/16 18:33 06/30/16 18:34 DC 06/30/16 18:30 10 MG Diltiazem HCl 10 mg 10 mg NOW STAT IV 06/30/16 18:35 06/30/16 18:36 DC 06/30/16 18:37 10 MG Diltiazem HCl/ Dextrose (Cardizem Inj/D5 100ml) 125 ml @ 10 mls/hr [id number] PRN IV 06/30/16 19:15 07/02/16 01:20 DC 06/30/16 19:28 10 MLS/HR Levofloxacin 750 mg 750 mg NOW STAT IV 06/30/16 19:17 06/30/16 19:18 DC 06/30/16 19:31 750 MG Sodium Chloride (Nss 500ml) 500 ml @ 999 mls/hr Q31M STAT IV 06/30/16 19:57 06/30/16 20:27 DC 06/30/16 19:30 999 MLS/HR Albumin Human (Albumin 25%) 25 gm ONE STAT IV 06/30/16 20:43 06/30/16 20:44 DC 06/30/16 20:53 25 GM Acetaminophen (Tylenol Tab) 1,000 mg QPM PO 07/01/16 21:00 07/31/16 20:59 07/04/16 21:00 1,000 MG Acetaminophen (Tylenol Tab) 500 mg QAM PO 07/01/16 09:00 07/31/16 08:59 07/05/16 07:55 500 MG Atenolol (Tenormin Tab) 25 mg BID PO 06/30/16 21:00 07/01/16 13:00 DC 07/01/16 07:43 25 MG Clonazepam (Klonopin Tab) 0.5 mg QPM PO 06/30/16 21:00 07/30/16 20:59 07/04/16 20:59 0.5 MG Folic Acid (Folvite Tab) 1 mg DAILY PO 07/01/16 09:00 07/31/16 08:59 07/05/16 07:55 1 MG Senna (Senokot Tab) 8.6 mg DAILY PRN PO 06/30/16 20:45 07/30/16 20:44 07/03/16 20:27 8.6 MG Simethicone (Mylicon Chew Tab) 80 mg QID PRN PO 06/30/16 20:45 07/30/16 20:44 07/01/16 07:43 80 MG Simvastatin (Zocor Tab) 20 mg DAILY PO 07/01/16 09:00 07/31/16 08:59 07/05/16 07:54 20 MG Calcium/Vitamin D (Caltrate Plus Tab) 1 tab QAM PO 07/01/16 09:00 07/31/16 08:59 07/05/16 07:53 1 TAB Pantoprazole Sodium (Protonix Tab) 40 mg QAM PO 07/01/16 09:00 07/31/16 08:59 07/05/16 07:55 40 MG Lactobacillus Acidophilus 4 tab 4 tab TIDM PO 07/01/16 07:30 07/31/16 07:59 07/05/16 11:25 4 TAB Potassium Chloride/Sodium Chloride (Nss + 20meq KCl 1000ml) 1,000 ml @ 100 mls/hr Q10H IV 07/01/16 00:00 07/01/16 05:26 DC 07/01/16 01:05 100 MLS/HR Acetaminophen 650 mg 650 mg Q4H PRN PO 06/30/16 21:00 07/03/16 10:23 DC 07/01/16 05:26 650 MG Levofloxacin 500 mg/Prmx 100 ml @ 100 mls/hr Q24H IV 07/01/16 20:00 07/03/16 20:16 DC 07/03/16 20:00 100 MLS/HR Ceftriaxone Sodium 1 gm/ Dextrose 50 ml @ 100 mls/hr Q24H IV 07/01/16 00:00 07/02/16 13:49 DC 07/02/16 00:22 100 MLS/HR Amiodarone HCL/ Dextrose 100 ml @ 600 mls/hr TODAY@2115 IV 06/30/16 21:15 06/30/16 21:24 DC 06/30/16 21:24 600 MLS/HR Amiodarone HCL/ Dextrose 200 ml @ 33.3 mls/hr Q6H1M IV 06/30/16 21:30 07/01/16 03:30 DC 06/30/16 21:24 33.3 MLS/HR Amiodarone HCL/ Dextrose (Nexterone / D5w) 200 ml @ 16.7 mls/hr [id number] IV 07/01/16 03:30 07/01/16 13:00 DC 07/01/16 02:49 16.7 MLS/HR Atenolol (Tenormin Tab) 25 mg DAILY PO 07/02/16 09:00 08/01/16 08:59 07/05/16 07:54 25 MG Digoxin (Lanoxin Tab) 0.25 mg NOW ONCE PO 07/01/16 13:30 07/01/16 13:31 DC 07/01/16 13:30 0.25 MG Prednisone 5 mg 5 mg QAM PO 07/02/16 09:00 08/01/16 08:59 07/05/16 07:54 5 MG Sodium Chloride (Nss 500ml) 500 ml @ 999 mls/hr Q31M STAT IV 07/01/16 19:37 07/01/16 20:07 DC 07/01/16 20:01 999 MLS/HR Prednisone (PredniSONE TAB) 5 mg 2000 ONCE PO 07/01/16 20:00 07/01/16 20:01 DC 07/01/16 21:51 5 MG Prednisone (PredniSONE TAB) 5 mg DAILY@1300 PO 07/02/16 13:00 08/01/16 12:59 07/05/16 12:43 5 MG Guaifenesin (Mucinex Contr Rel Tab) 600 mg Q12 PO 07/02/16 11:00 08/01/16 10:59 07/05/16 07:56 600 MG Warfarin Sodium (Coumadin Tab) 2 mg DAILY@16 PO 07/03/16 16:00 07/04/16 11:15 DC 07/03/16 15:52 2 MG Phytonadione (Mephyton Tab) 2.5 mg TODAY@1500 ONCE PO 07/03/16 15:00 07/03/16 15:01 DC 07/03/16 15:50 2.5 MG Levofloxacin (Levaquin Tab) 500 mg DAILY@11 PO 07/04/16 11:00 07/09/16 11:01 07/05/16 11:24 500 MG Warfarin Sodium (Coumadin Tab) 4 mg DAILY@16 PO 07/04/16 16:00 08/03/16 15:59 Future hold 07/04/16 16:19 4 MG Subjective Ms. Mercedes is feeling better. Her breathing is improved. She denies any bleeding , bruising, headaches, or vision changes. Review of Systems: Constitutional: No chills, No fever Eyes: No worsening of vision ENT: No unusual epistaxis Respiratory: No cough, No hemoptysis, No shortness of breath Cardiovascular: No chest pain Abdomen: No nausea, No pain Musculoskeletal: No joint pain, No muscle pain Female : No dysuria, No hematuria Neurologic: No numbness/tingling, No weakness Heme: No abnormal bleeding/bruising Skin: No rash Vital Signs Vital Signs Past 12 Hours Date Time Temp Pulse Resp B/P Pulse Ox O2 Delivery O2 Flow Rate FiO2 07/05/16 08:30 Room Air 07/05/16 07:45 Room Air 07/05/16 07:38 36.7 71 18 164/93 97 Room Air Physical Exam Constitutional: General Apperance: heathly-appearing Level of Distress: NAD Psychiatric: Mental Status: active & alert Orientation: oriented except where noted Lungs: Respiratory Effort: no dyspnea Auscuitation: CTA except as noted Cardiovascular: Heart Auscultation: RRR Abdomen: Inspection & Palpation: soft, no tenderness, guarding & rebound Extremities: no edema Laboratory Last 24 Hours Test 07/04/16 16:24 07/05/16 07:52 Bedside Glucose 102 mg/dl White Blood Count 8.65 K/uL Red Blood Count 3.63 M/uL Hemoglobin 11.9 g/dL Hematocrit 35.9 % Mean Corpuscular Volume 98.9 fL Mean Corpuscular Hemoglobin 32.8 pg Mean Corpuscular Hemoglobin Concent 33.1 g/dl Platelet Count 329 K/uL Mean Platelet Volume 9.2 fL RDW Standard Deviation 62.4 fL RDW Coefficient of Variation 17.4 % Neutrophils % (Manual) 63.5 % Lymphocytes % (Manual) 15.7 % Variant Lymphocytes % (manual) 13.9 % Monocytes % (Manual) 1.7 % Eosinophils % (Manual) 3.5 % Metamyelocytes % 1.7 % Neutrophils # (Manual) 5.49 K/uL Total Absolute Neutrophils 5.49 K/uL Lymphocytes # (Manual) 1.36 K/uL Absolute Variant Lymphocytes 1.20 K/uL Total Absolute Lymphocytes 2.56 K/uL Monocytes # (Manual) 0.15 K/uL Eosinophils # (Manual) 0.30 K/uL Metamyelocytes # 0.15 K/uL Hypersegmented Polys 1+ Smudge Cells PRESENT Prothrombin Time 14.3 SECONDS Prothromb Time International Ratio 1.3 Activated Partial Thromboplast Time 28.4 SECONDS Partial Thromboplastin Ratio 1.1 Sodium Level 143 mmol/L Potassium Level 3.8 mmol/L Chloride Level 111 mmol/L Carbon Dioxide Level 23 mmol/L Anion Gap 9.0 mmol/L Blood Urea Nitrogen 22 mg/dl Creatinine 0.83 mg/dl Est Creatinine Clear Calc Drug Dose 56.0 ml/min Estimated GFR () 80.5 Estimated GFR (Non- 69.5 BUN/Creatinine Ratio 26.3 Random Glucose 84 mg/dl Calcium Level 8.3 mg/dl Assessment & Plan Ms. Mercedes's INR is now normal. I would hold any further vitamin K. She restarted her coumadin last evening. It may take her a few days to achieve a therapeutic INR. She should also be monitored closely in these first few weeks, especially while she is on antibiotics, as her levels may be labile. She does not want to see the [facility] anticoagulation clinic because she lives in [place]. Her rehab should be made aware of this issue, as should her PCP who will monitor her INRs moving forward. We could also consider bridging with a few days of Lovenox, as she will be prothrombotic for first few days on Coumadin. Otherwise, we will sign off for now but will be happy to come back if any further questions or issues arise.
[2016-07-05 13:03] VITALS: BP 164/93; PULSE 71; O2SAT 97
[2016-07-05 15:01] VITALS: BP 122/72; PULSE 74; TEMP 36.5; O2SAT 98
[2016-07-05] MEDS: WARFARIN SOD 4 MG TAB PO SCH (16:08)
--- NOTE | 2016-07-05 18:17 | Family Medicine Progress Note ---
Progress Note Date of Service Jul 05, 2016. Subjective Pt evaluation today including: conversation w/ patient, conversation w/ family (daughter and ), physical exam, chart review, lab review Pain: None PO Intake: Good Voiding: no voiding problems Doing well this morning; denies any complaints at this time Per daughter, mother seems at he baseline Multiple disposition issues that daughter would like to discuss Constitutional: No chills, No fever, No sweats, No weight loss Eyes: No eye pain, No worsening of vision ENT: No nasal symptoms, No sore throat, No tinnitus Respiratory: No cough, No shortness of breath, No sputum, No wheezing Cardiovascular: No chest pain, No orthopnea, No palpitations Abdomen: No constipation, No diarrhea, No nausea, No pain, No vomiting Female : No dysuria Neurologic: + weakness (feels weak from admission), No numbness/tingling, No vertigo Psychiatric: No anxiety, No depression symptoms, No insomnia Heme: No clotting problems Skin: No color change, No new/changing skin lesions, No rash Medications Current Inpatient Medications Medications (Trade) Dose Ordered Sig/Norman Route Start Time Stop Time Status Last Admin Dose Admin Acetaminophen (Tylenol Tab) 1,000 mg QPM PO 07/01/16 21:00 07/31/16 20:59 07/04/16 21:00 1,000 MG Acetaminophen (Tylenol Tab) 500 mg QAM PO 07/01/16 09:00 07/31/16 08:59 07/05/16 07:55 500 MG Clonazepam (Klonopin Tab) 0.5 mg QPM PO 06/30/16 21:00 07/30/16 20:59 07/04/16 20:59 0.5 MG Folic Acid (Folvite Tab) 1 mg DAILY PO 07/01/16 09:00 07/31/16 08:59 07/05/16 07:55 1 MG Codeine Phosphate/ Guaifenesin (Robitussin-AC Sugar Free Syrup) 10 ml Q6H PRN PO 06/30/16 20:45 07/30/16 20:44 Senna (Senokot Tab) 8.6 mg DAILY PRN PO 06/30/16 20:45 07/30/16 20:44 07/03/16 20:27 8.6 MG Simethicone (Mylicon Chew Tab) 80 mg QID PRN PO 06/30/16 20:45 07/30/16 20:44 07/01/16 07:43 80 MG Simvastatin (Zocor Tab) 20 mg DAILY PO 07/01/16 09:00 07/31/16 08:59 07/05/16 07:54 20 MG Calcium/Vitamin D (Caltrate Plus Tab) 1 tab QAM PO 07/01/16 09:00 07/31/16 08:59 07/05/16 07:53 1 TAB Pantoprazole Sodium (Protonix Tab) 40 mg QAM PO 07/01/16 09:00 07/31/16 08:59 07/05/16 07:55 40 MG Lactobacillus Acidophilus (Floranex Tab) 4 tab TIDM PO 07/01/16 07:30 07/31/16 07:59 07/05/16 16:09 4 TAB Zolpidem Tartrate (Ambien Tab) 5 mg HSZ PRN PO 06/30/16 21:00 07/30/16 20:59 Nitroglycerin (Nitrostat Tab) 0.4 mg UD PRN SL 06/30/16 21:00 07/30/16 20:59 Ondansetron HCl (Zofran Inj) 4 mg Q6H PRN IV 06/30/16 21:00 07/30/16 20:59 Atenolol (Tenormin Tab) 25 mg DAILY PO 07/02/16 09:00 08/01/16 08:59 07/05/16 07:54 25 MG Prednisone (PredniSONE TAB) 5 mg QAM PO 07/02/16 09:00 08/01/16 08:59 07/05/16 07:54 5 MG Prednisone (PredniSONE TAB) 5 mg DAILY@1300 PO 07/02/16 13:00 08/01/16 12:59 07/05/16 12:43 5 MG Guaifenesin (Mucinex Contr Rel Tab) 600 mg Q12 PO 07/02/16 11:00 08/01/16 10:59 07/05/16 07:56 600 MG Levofloxacin (Levaquin Tab) 500 mg DAILY@11 PO 07/04/16 11:00 07/09/16 11:01 07/05/16 11:24 500 MG Warfarin Sodium (Coumadin Tab) 4 mg DAILY@16 PO 07/04/16 16:00 08/03/16 15:59 Future hold 07/05/16 16:08 4 MG Objective Vital Signs Date Time Temp Pulse Resp B/P Pulse Ox O2 Delivery O2 Flow Rate FiO2 07/05/16 16:30 Room Air 07/05/16 15:01 36.5 74 18 122/72 98 Room Air 07/05/16 13:03 71 97 07/05/16 08:30 Room Air 07/05/16 07:45 Room Air 07/05/16 07:38 36.7 71 18 164/93 97 Room Air 07/05/16 00:19 36.4 71 18 145/85 97 Room Air 07/05/16 00:00 97 Room Air Physical Exam General Appearance: WD/WN, no apparent distress Eyes: normal inspection, EOMI ENT: hearing grossly normal, pharynx normal Neck: supple, no adenopathy, no JVD Respiratory/Chest: chest non-tender, no respiratory distress, + crackles (left > right, improving) Cardiovascular: no gallop, no murmur, + irregularly irregular Abdomen: normal bowel sounds, non tender, soft Extremities: non-tender, no pedal edema, + pertinent finding (ulnar deviations , per Hx of RA) Neurologic/Psychiatric: alert, normal mood/affect, oriented x 3 Skin: normal color, warm/dry, no rash Lymphatic: no adenopathy Laboratory Results Last 24 Hours Test 07/05/16 07:52 White Blood Count 8.65 K/uL Red Blood Count 3.63 M/uL Hemoglobin 11.9 g/dL Hematocrit 35.9 % Mean Corpuscular Volume 98.9 fL Mean Corpuscular Hemoglobin 32.8 pg Mean Corpuscular Hemoglobin Concent 33.1 g/dl Platelet Count 329 K/uL Mean Platelet Volume 9.2 fL RDW Standard Deviation 62.4 fL RDW Coefficient of Variation 17.4 % Neutrophils % (Manual) 63.5 % Lymphocytes % (Manual) 15.7 % Variant Lymphocytes % (manual) 13.9 % Monocytes % (Manual) 1.7 % Eosinophils % (Manual) 3.5 % Metamyelocytes % 1.7 % Neutrophils # (Manual) 5.49 K/uL Total Absolute Neutrophils 5.49 K/uL Lymphocytes # (Manual) 1.36 K/uL Absolute Variant Lymphocytes 1.20 K/uL Total Absolute Lymphocytes 2.56 K/uL Monocytes # (Manual) 0.15 K/uL Eosinophils # (Manual) 0.30 K/uL Metamyelocytes # 0.15 K/uL Hypersegmented Polys 1+ Smudge Cells PRESENT Prothrombin Time 14.3 SECONDS Prothromb Time International Ratio 1.3 Activated Partial Thromboplast Time 28.4 SECONDS Partial Thromboplastin Ratio 1.1 Sodium Level 143 mmol/L Potassium Level 3.8 mmol/L Chloride Level 111 mmol/L Carbon Dioxide Level 23 mmol/L Anion Gap 9.0 mmol/L Blood Urea Nitrogen 22 mg/dl Creatinine 0.83 mg/dl Est Creatinine Clear Calc Drug Dose 56.0 ml/min Estimated GFR () 80.5 Estimated GFR (Non- 69.5 BUN/Creatinine Ratio 26.3 Random Glucose 84 mg/dl Calcium Level 8.3 mg/dl Assessment and Plan Very pleasant 76 year female, day 5 of admission for combination of left lobar PNA, and complicated UTI with intermittent confusion during hospitalization which seems to be improving overall. Today she is alert and oriented x 3, she was slightly slow to answer but ultimately answered correctly and daughter notes that mentation seems at baseline. Family had chatted previously about doing an MRI for evaluation of intermittent slurred speech, which I have not witnessed since taking over the care of the patient. At this time, I would hold off on doing an MRI but would have a low thresshold to order baseline MRI if slurred speech recurs. Certainly MRI can be done as an outpatient if indicated. Multiple issues to consider regarding discharge planning. Patient takes Coumadin but with history of RA and current history of infection on P450 effecting medications, I expect labile INR that needs close monitoring. Coumadin clinic has been recommended, however, patient comes to us from [place] and having lab draws in [place] simply not practical. PCP has been doing INR montoring and can continue doing so at this time which will allow patient to have labs done closer to home. With history of RA, daughter also request changing wire cutter to [facility] provider, Dr. Weaver to allow for continuity and ease of accessing records for her other medical issues. Her problem list includes: - Left Lobar PNA - UTI - Mild dementia - Questionable slurred speech - Atrial Fibrillation - Rheumatoid Arthritis - Increased aPTT - GERD - Hypercholesterolemia - Insomnia Left lower lobe pneumonia - Continue Levaquin, currently day 6; recommend 10 days treatment Cystitis/UTI - Continue Levaquin, currently day 6; recommend 10 days of treatment Confusion, questionable changes in speech - Likely due to underlying mild dementia. - Discussed utility of MRI at this time - Daughter wonders whether baseline MRI would be indicated - No slurred speech for me so from my standpoint I would hold off and consider evaluation as an outpatient if it continues - Patient and daughter agreeable to holding off on MRI Atrial flutter with RVR, variable block and hypotension in the ER - Rate controlled today; on Atenolol - Has gotten digoxin on this admission but with improvement of her PNA, I suspect she no longer needs this - Cardiology recommendations appreciated - Coumadin subtherapeutic at 1.3 today; continue 4 mg daily GERD/gastritis - Continue Protonix 40mg PO daily Hypercholesterolemia - Continue Simvastatin 20 mg PO daily Rheumatoid arthritis - Continue folic acid 1 mg by mouth daily. - Hold home meds - Continue Prednisone; resume home dosing at discharge Insomnia - Continue Clonazepam 0.5 mg by mouth every afternoon. Code - Level I Full Resusitation DVT prophylaxis - Continue Coumadin - Will add Heparin 5000 s.c TID as bridge due to subtherapeutic INR - SCD Disposition - Med/Surg - OT and PT evaluations - Will have PCP continue to monitor INRs - Needs the following outpatient referrals: Rheumatology (new patient) and hematology (hospital follow-up) Continued [facility] stay due to: ambulation difficulties Discharge planning: uncertain Reviewed: Pt Seen/Exam by Me History Alert today. Per nursing - no concerns. Constitutional: denies: fever Respiratory: negative: short of breath Cardiovascular: denies chest pain Gastrointestinal/Abdominal: negative: abdominal pain General Appearance: no apparent distress Respiratory: lungs clear, no respiratory distress Cardiovascular: regular rate, rhythm Gastrointestinal: normal bowel sounds, non tender, soft Neurologic/Psychiatric: alert, oriented x 3 Skin Characteristics: warm/dry Assessment/Plan I have reviewed the medical record and performed a history and physical examination of this patient today. I have discussed the case with Dr Power. The above note reflects my findings, conclusions, and recommendations.
[2016-07-05 20:00] VITALS: BP 114/69; PULSE 91
[2016-07-05] MEDS: CLONAZEPAM 0.5 MG TAB PO SCH (21:25)
[2016-07-05] MEDS: HEPARIN SOD 5000 UNIT/0.5 ML CARP SQ SCH (22:10)
[2016-07-06 00:15] VITALS: BP 137/84; PULSE 87; TEMP 36.5; O2SAT 95
[2016-07-06] MEDS: HEPARIN SOD 5000 UNIT/0.5 ML CARP SQ SCH (05:47)
[2016-07-06 06:41] LABS: BASO % 0.5 %; BASO ABS # 0.05 K/uL (0-0.2); COMPLETE YES; EOS % 2.8 %; HEMATOCRIT 38.4 % (37-47); IG% 3.8 %; LYMPH % 43.1 %; LYMPH ABS # 4.35 K/uL (1.2-3.4); MEAN CELL VOLUME 100.3 fL (80-100); MEAN CORPUSCULAR HEMOGLOBIN 33.2 pg (25-34); MEAN CORPUSCULAR HGB CONC 33.1 g/dl (32-36); MEAN PLATELET VOLUME 9.5 fL (7.4-10.4); MONO % 9.8 %; PLATELET COUNT 368 K/uL (130-400); RED BLOOD COUNT 3.83 M/uL (4.2-5.4)
[2016-07-06 06:52] LABS: INR 2.2 (0.9-1.1); PROTHROMBIN TIME (PATIENT) 24.5 SECONDS (9.0-12.0)
[2016-07-06 07:14] LABS: BUN/CREATININE RATIO 26.1 (10-20); CALCIUM 8.7 mg/dl (8.5-10.1); CREATININE 0.8 mg/dl (0.60-1.20); POTASSIUM 3.6 mmol/L (3.5-5.1)
[2016-07-06] MEDS: LACTOBACILLUS ACIDOPHILUS (FLORANEX) TAB PO SCH ×3 (07:55→15:51)
[2016-07-06] MEDS: ACETAMINOPHEN 500 MG TAB PO SCH (07:56)
[2016-07-06] MEDS: GUAIFENESIN 600 MG TABCR PO SCH (07:56)
[2016-07-06] MEDS: CALCIUM 600MG + VIT D 400 IU TAB PO SCH (07:57)
[2016-07-06] MEDS: SIMVASTATIN 20 MG TAB PO SCH (07:57)
[2016-07-06] MEDS: PANTOprazole SOD 40 MG TAB PO SCH (07:57)
[2016-07-06 07:58] VITALS: BP 126/86; PULSE 69; TEMP 36.5; O2SAT 95
[2016-07-06] MEDS: LEVOFLOXACIN 500 MG TAB PO SCH (07:58)
[2016-07-06] MEDS ORDERED: MICONAZOLE NITRATE POWDER 43 GM ONE (08:11)
[2016-07-06] MEDS ORDERED: NURSING DECISION MEDICATION ORDER SCH (08:15)
[2016-07-06] MEDS ORDERED: MICONAZOLE NITRATE POWDER 43 GM EXT PRN (08:45)
[2016-07-06 09:28] VITALS: BP 94/62
[2016-07-06 10:00] VITALS: BP 94/60
[2016-07-06] MEDS ORDERED: LEVO1TAB33 PO ×2 (11:11→11:22)
--- NOTE | 2016-07-06 11:21 | CARDIOLOGY PROGRESS NOTE ---
DATE: 07/06/2016 DATE: 07/06/2016. SUBJECTIVE: Mrs. Mercedes claims to have had an episode of presyncope earlier today. She explains that this is a chronic condition. She denies chest pain, dyspnea, and palpitations. OBJECTIVE: VITAL SIGNS: Blood pressure 100/60 with an irregular pulse of 70. Respiratory rate is 18. The patient is afebrile at 36.5 degrees Celsius. Saturation 95% on room air. NECK: Supple with full carotid upstrokes. There are no carotid bruits. Jugular venous pressure is flat at 90 degrees. There is no thyromegaly. CARDIOVASCULAR EXAMINATION: Reveals an irregularly irregular rhythm with distant heart sounds. No obvious murmurs. LUNGS: Clear without rales, rhonchi, or wheezes. ABDOMEN: Soft without bruits. EXTREMITIES: Reveal intact radial artery pulses bilaterally. There is no peripheral edema. LABORATORY DATA: CBC notes a hemoglobin of 12.7, hematocrit 38.4, white count 10.1, platelet count 368,000. Electrolytes note a sodium of 144, potassium 3.6, chloride 111, bicarbonate 23, BUN 21, creatinine 0.8, glucose 83. INR is 2.2. IMPRESSION AND PLAN: 1. Prominent atrial fibrillation -- ventricular response now well controlled as her pulmonary status improves. 2. Left lower lobe pneumonia -- continue intravenous antibiotics. 3. Hypertension -- controlled. 4. Hypercholesterolemia -- continue statin. 5. Rheumatoid arthritis.
--- NOTE | 2016-07-06 11:21 | Discharge Instructions ---
Discharge Instructions Date of Service Jul 06, 2016. Admission Reason for Admission: Atrial Flutter With Rapid Ventricular Response Discharge Discharge Diagnosis / Problem: Pneumonia, Urinary Tract Infection, Atrial Fibrillation Discharge Goals Goal(s): Decrease discomfort, Improve function Activity Recommendations Activity Limitations: as noted below Per rehabilitation recommendations . Instructions / Follow-Up Instructions / Follow-Up You were admitted for pneumonia, urinary tract infection. You also had atrial fibrillation with a fast heart rate. We treated you with IV antibiotics initially but now have you switched over to oral antibiotics. You have 3 days left out of a day course and we will give you a prescription for this when you leave. You did have atrial fibrillation during your hospitalization, likely due to your pneumonia but your heart rate improved as we treated the infection. You take atenolol to control your heart rate. If you feel your heart rate going up , you can try taking an extra half dose of Atenolol and see if that helps. You do take Coumadin for stroke prevention. This medication does interact with many other medications so close monitoring of your INR, especially as you are recovering from illness are important. We will send you to skilled rehabilitation to help you with your strength as you recover from your infections. As you go home, please do the following: - Resume your regular medicines for rheumatoid arthritis - We are in the process of getting you a follow-up with Dr. Weaver from the [facility]. This requires a referral from your primary care provider. - Resume your regular Coumadin dosing. Repeat INR tomorrow; this will be forwarded to your PCP and your dose will be adjusted as needed - Your blood pressures are slightly low so as your leave, please do not take Lisinopril or Amlodipine until the physician at [facility] or your primary care provider determines it can be re-started If your symptoms fail to improve, acutely worsen, please seek medical attention immediately by either calling your primary care provider or going to your nearest emergency department. Otherwise, please see your primary care provider in 3-5 days to ensure that your symptoms continue to improve. Current Hospital Diet Patient's current hospital diet: AHA Diet (Heart Healthy) Discharge Diet Recommended Diet: AHA Diet (Heart Healthy) Pending Studies Studies pending at discharge: no Medical Emergencies . Who to Call and When: Medical Emergencies: If at any time you feel your situation is an emergency, please call 911 immediately. . Non-Emergent Contact Non-Emergency issues call your: Primary Care Provider Call Non-Emergent contact if: you have a fever, temperature is above 100.5, your pain is not controlled, your pain is worsening . . "Provider Documentation" section prepared by Josue Power. VTE Core Measure Inpt VTE Proph given/why not?: Warfarin (Coumadin)
[2016-07-06] MEDS ORDERED: ACETAMINOPHEN 325 MG TAB PO ONE (14:00)
--- NOTE | 2016-07-06 15:14 | Discharge Summary ---
Discharge Summary Date of Service Jul 06, 2016. (Josue Power MD) Discharge Summary Admission Date: Jun 30, 2016 at 20:53 Discharge Date: Jul 06, 2016 Discharge Disposition: Acute care facility ([facility]) Principal Diagnosis: left lower lobe pneumonia, urinary tract infection Problems/Secondary Diagnoses: Rheumatoid arthritis History of atrial fibrillation with RVR Immunizations: Have You Had Influenza Vaccine: N/A History of Tetanus Vaccine?: Yes History of Pneumococcal: Yes Pneumococcal Date: Dec 26, 2006 History of Hepatitis B Vaccine: No Consultations: Cardiology Hematology (Josue Power MD) Discharge Exam Review of Systems: Constitutional: No chills, No fever Eyes: No discharge, No redness, No worsening of vision ENT: No nasal symptoms, No sore throat, No tinnitus Respiratory: No cough, No shortness of breath, No sputum Cardiovascular: No chest pain, No palpitations Abdomen: No nausea, No pain, No vomiting Musculoskeletal: + joint pain (per baseline rheumatoid arthritis) Genitourinary - Female: No dysuria, No urinary frequency, No urinary urgency Genitourinary - Male: No hematuria Neurologic: No numbness/tingling, No vertigo, No weakness Psychiatric: + insomnia (her baseline), No anxiety Hematologic / Lymphatic: No night sweats, No swollen lymph nodes Integumentary: + rash (left abdomen), No new/changing skin lesions Physical Exam: General Appearance: WD/WN, no apparent distress Eyes: normal inspection, EOMI ENT: normal ENT inspection, hearing grossly normal, pharynx normal Neck: supple, no adenopathy, no JVD Respiratory/Chest: chest non-tender, no respiratory distress, + crackles ( mild residual left-sided crackles) Cardiovascular: no gallop, no murmur, + irregularly irregular Abdomen / GI: normal bowel sounds, non tender, soft Extremities: no calf tenderness, no pedal edema Neurologic/Psychiatric: alert, normal mood/affect, oriented x 3 Skin: normal color, warm/dry, no rash Lymphatic: no adenopathy (Josue Power MD) Review of Systems: Constitutional: No fever Respiratory: No shortness of breath Cardiovascular: No chest pain Physical Exam: General Appearance: no apparent distress Respiratory/Chest: lungs clear, no respiratory distress Cardiovascular: + irregularly irregular Abdomen / GI: normal bowel sounds, non tender, soft Neurologic/Psychiatric: alert, oriented x 3 Skin: warm/dry (Marissa Bassett M.D.) Hospital Course Very pleasant 76-year-old female, who presented to the emergency department for worsening fatigue, generalized weakness, increased sleepiness and shakiness, and shortness of breath, that initially began 4 weeks ago. She was diagnosed with a left lower pneumonia, and urinary tract infection. Her problem list during the admission includes: - Left Lobar PNA - UTI - Metabolic encephalopathy - Questionable slurred speech - Atrial Fibrillation - Rheumatoid Arthritis - Increased aPTT - GERD - Hypercholesterolemia - Insomnia Left lower lobe pneumonia - Patient needs a total 10 course of antibiotic treatment - Patient was converted to by mouth Levaquin at discharge; requires 3 additional days of treatment prior to stopping Cystitis/UTI - Treated with Levaquin as above; 3 more days required after discharge to complete 10 day course. Metabolic encephalopathy - Thought to be secondary to acute infection on baseline of mild dementia - Progressively resolved during hospitalization - Daughter had some concerns about intermittent slurred speech and worsening memory over the past several months - Patient mentating appropriately discharge, was alert and oriented 3; daughter does admit that patient occasionally does have difficulty with short- term memory - No obvious focal neurological deficits indicating an urgent MRI - Had a discussion regarding the value of an MRI. Decision made to hold off on MRI and discuss with PCP once patient has recovered from her acute illness and has returned home from acute rehabilitation Atrial flutter with RVR - Patient did go into RVR during admission; likely secondary to acute lung infection; had initial dosing with digoxin which improve rate - RVR resolved and heart rate remained below 100 with Atenolol - Cardiology consultation during admission; recommendations appreciated - Coumadin subtherapeutic at 1.3 during admission; improved to 2.2 at discharge Likely secondary to medication interactions as patient started on Levaquin - Resumed home Coumadin regimen at discharge - INR 2.2 at discharge - Recommend repeating INR 1 day after discharge GERD/gastritis - Continued Protonix 40mg PO daily Hypercholesterolemia - Continued Simvastatin 20 mg PO daily Rheumatoid Arthritis - Continue folic acid 1 mg by mouth daily. 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 Code - Level I Full Resuscitation Disposition - Med/Surg - OT and PT evaluations; recommend acute rehabilitation for strengthening - Patient uses wheelchair at home. does lifting but she can provide some assistance to home at baseline; was not able to do in hospital At discharge, the patient will need: - Follow-up with Dr. Nataly Weaver (Rheumatology), establish as new patient - Repeat INR in 1 day; forward results to PCP for Coumadin dosing Total Time Spent: Less than 30 minutes This includes examination of the patient, discharge planning, medication reconciliation, and communication with other providers. (Josue Power MD) I have reviewed the medical record and performed a history and physical examination of this patient today. I have discussed the case with Dr. Power. The above note reflects my findings, conclusions, and recommendations. Total Time Spent: Greater than 30 minutes (35) (Marissa Bassett M.D.) Discharge Instructions Please refer to the electronic Patient Visit Report (Discharge Instructions) for additional information. (Josue Power MD) Additional Copies To Laisha Martins
[2016-07-06] MEDS: WARFARIN SOD 4 MG TAB PO SCH (15:50)
[2016-07-06 16:32] VITALS: BP 134/92; PULSE 80; TEMP 36.6; O2SAT 95
== END 2016-07-06 17:27 | DRG 308 ==
LOC: ENRESERVDT → ENRESERVTM → C.EDB 17:59 → C.2T 20:53 → C.4E 07-03 15:44
PROVIDERS: ADMIT Hospitalist; ATTEND Family Medicine
DX: I48.92 Unspecified atrial flutter (principal); J18.9 Pneumonia, unspecified organism; G93.41 Metabolic encephalopathy; D68.9 Coagulation defect, unspecified; N30.90 Cystitis, unspecified without hematuria; M06.9 Rheumatoid arthritis, unspecified; I48.2 Chronic atrial fibrillation; I25.10 Atherosclerotic heart disease of native coronary artery without angina pectoris; I10 Essential (primary) hypertension; J45.909 Unspecified asthma, uncomplicated; K44.9 Diaphragmatic hernia without obstruction or gangrene; K21.9 Gastro-esophageal reflux disease without esophagitis; G47.00 Insomnia, unspecified; E78.00 Pure hypercholesterolemia, unspecified; K29.70 Gastritis, unspecified, without bleeding; R41.0 Disorientation, unspecified; M54.10 Radiculopathy, site unspecified; E56.1 Deficiency of vitamin K; R06.00 Dyspnea, unspecified; I95.9 Hypotension, unspecified; F03.90 Unspecified dementia, unspecified severity, without behavioral disturbance, psychotic disturbance, mood disturbance, and anxiety; R47.81 Slurred speech; Z96.659 Presence of unspecified artificial knee joint; Z79.01 Long term (current) use of anticoagulants; Z86.718 Personal history of other venous thrombosis and embolism; Z79.52 Long term (current) use of systemic steroids; Z79.899 Other long term (current) drug therapy

== ENCOUNTER → 2016-12-22 | Outpatient (CLI) | payer OTHER, BC ==
[~2016-12-22] MED LIST changes: -AMLO-114 PO; -CEPH500C PO; -FERR325T5 PO; -FSMD/70 PO; +GUAISYP4 PO; +LEVO1TAB33 PO; -LISI-725 PO; -MULT-506 PO; -PRLSR20 PO; +PRT/20 PO; +SENN-61 PO; +SIME80CH PO; +WARF2TAB PO
[2016-12-22 13:41] LABS: CHOLESTEROL/HDL RATIO 3.9
== END | disposition home or self-care (01) ==
LOC: C.LABMFLN 08:17
PROVIDERS: ATTEND Internal Medicine Cardiovascular Disease
DX: E78.5 Hyperlipidemia, unspecified (principal); I10 Essential (primary) hypertension

== ENCOUNTER 2017-04-29 10:56 | Emergency (ER) | payer OTHER, BC ==
[2017-04-29 11:04] VITALS: TEMP 36.9; Ht 167.6 cm
--- NOTE | 2017-04-29 12:36 | EMERGENCY ROOM VISIT NOTE ---
History Report prepared by Padilla: Misha Chaudhary Under the Supervision of: Dr. Haider Davidson M.D. First contact with patient: 12:13 Chief Complaint: REFERRED BY DOCTOR Stated Complaint: CHEST, STOMACH, ARM, BACK PAIN - DR REFERRED History of Present Illness The patient is a 76 year old female who presents to the Emergency Room with complaints of a resolved episode of chest pain occurring two nights ago. The patient states that her pain was a 7/10 in severity. She states that her shoulder and arm hurt as well. She additionally states that she thought that the room was spinning, and she notes that this episode only lasted around 20 minutes. She denies any sweating or nausea, and she states that she has not had pain today or yesterday. The patient called her doctor this morning, and they told her to come to the ED for evaluation. She does not have a history of heart attacks or angina. The patient has a history of a hiatal hernia, A-fib, GERD, rheumatoid arthritis, and spinal stenosis, and she states that she does not walk. The patient additionally states that she has been having trouble with abdominal pain and gas problems. Source of History: patient Onset: two nights ago Position: chest Symptom Intensity: 7/10 Timing: resolved Associated Symptoms: + abdominal pain, No nausea Note: Associated symptoms: Shoulder pain. Review of Systems See HPI for pertinent positives & negatives. A total of 10 systems reviewed and were otherwise negative. Past Medical & Surgical Medical Problems: (1) A-fib (2) Asthma (3) Atrial flutter with rapid ventricular response (4) Benign hypertension (5) Heart disease (6) Hiatal hernia (7) History of blood clots (8) Replacement of total knee joint (9) Rheumatoid arthritis Family History Heart disease Hypertension Social History Smoking Status: Never Smoker Alcohol Use: none Drug Use: none Marital Status: Housing Status: lives with family Occupation Status: retired Current/Historical Medications Scheduled Acetaminophen (Tylenol), 2 TAB PO QPM Acetaminophen (Tylenol), 500 MG PO QAM Atenolol (Atenolol), 25 MG PO QPM Clonazepam (Klonopin), 0.5 MG PO BID Fluticasone Propionate (Nasal) (Flonase Allergy Relief), 2 SPRAYS INH DAILY Folic Acid (Folic Acid), 1 MG PO QAM Infliximab (Remicade), 100 MG IV q8 weeks Methotrexate Sodium (Methotrexate), 6 TABLETS PO WK Pantoprazole (Protonix), 20 MG PO QAM Prednisone (Prednisone), 2.5 MG PO QPM Prednisone (Prednisone), 5 MG PO QAM Probiotic Product (Probiotic), 1 CAP PO QAM Simvastatin (Simvastatin), 20 MG PO HS Warfarin Sodium (Coumadin), 1 MG PO DAILY Warfarin Sodium (Coumadin), 2 MG PO DAILY Zoledronic Acid (Reclast), 5 MG IV UD Scheduled PRN Simethicone (Gas-X), 1 DOSE PO QID PRN for Gas or Constipation Allergies Coded Allergies: Amoxicillin (Verified Allergy, Severe, HIVES, 04/29/17) Clavulanic Acid (Verified Allergy, Severe, HIVES, 04/29/17) Prochlorperazine (Verified Allergy, Unknown, 04/29/17) Physical Exam Vital Signs Date Time Temp Pulse Resp B/P (MAP) Pulse Ox O2 Delivery O2 Flow Rate FiO2 04/29/17 14:42 64 18 135/82 98 04/29/17 13:19 66 203/99 04/29/17 12:22 72 04/29/17 11:04 36.9 75 18 191/87 98 Room Air Physical Exam GENERAL: Patient is in no acute distress. HEENT: No acute trauma, normocephalic atraumatic, mucous membranes moist, no nasal congestion, no scleral icterus. NECK: No stridor, no adenopathy, no meningismus, trachea is midline. LUNGS: Clear to auscultation bilaterally, no wheeze, no rhonchi, breath sounds equal. HEART: Irregular with a normal rate. No murmurs. ABDOMEN: Soft, nontender, bowel sounds positive, no hernias, no peritonitis. EXTREMITIES: No cyanosis or edema, full range of motion of all the joints without pain or difficulty, no signs for acute trauma. NEUROLOGIC: Awake, alert, and oriented x3. Weakness to the lower extremities consistent with her past history. SKIN: No rash, no jaundice, no diaphoresis. Medical Decision & Procedures ER Provider Diagnostic Interpretation: Radiology results as stated below per my review and radiologist interpretation: SINGLE VIEW CHEST CLINICAL HISTORY: Atypical chest pain. FINDINGS: An AP, portable, upright chest radiograph is compared to study dated 07/02/2016. The examination is degraded by portable technique and patient rotation. The cardiac silhouette is not well assessed. There is atherosclerotic calcification of the thoracic aorta. The pulmonary vasculature is noncongested. There is chronic elevation of left hemidiaphragm with a large hiatal hernia. Abdominal contents are present in the left lower thorax. There is consolidative change in the left lower lung. The right lung is grossly clear. Chronic interstitial thickening is similar to previous. A small left pleural effusion is suspected. No pneumothorax is seen. The skeletal structures are osteopenic. Advanced arthritic change is seen in the shoulders. IMPRESSION: 1. Consolidative change is seen at the left lung base. This could represent atelectasis versus pneumonia/aspiration pneumonitis. Clinical correlation will be required. 2. Suspect a trace left pleural effusion. 3. The right lung appears clear. 4. Large hiatal hernia. Electronically signed by: Haider Garnica M.D. 04/29/2017 1:48 PM Dictated Date/Time: 04/29/2017 1:46 PM Laboratory Results 04/29/17 13:00 04/29/17 13:00 Test 04/29/17 13:00 Red Blood Count 4.07 M/uL (4.2-5.4) Mean Corpuscular Volume 106.6 fL (80-100) Mean Corpuscular Hemoglobin 35.4 pg (25-34) Mean Corpuscular Hemoglobin Concent 33.2 g/dl (32-36) RDW Standard Deviation 61.3 fL (36.4-46.3) RDW Coefficient of Variation 15.9 % (11.5-14.5) Mean Platelet Volume 10.0 fL (7.4-10.4) Prothrombin Time 54.3 SECONDS (9.0-12.0) Prothromb Time International Ratio 5.3 (0.9-1.1) Activated Partial Thromboplast Time 43.7 SECONDS (21.0-31.0) Partial Thromboplastin Ratio 1.7 Anion Gap 6.0 mmol/L (3-11) Estimated GFR () 81.7 Estimated GFR (Non- 70.5 BUN/Creatinine Ratio 22.6 (10-20) Calcium Level 8.7 mg/dl (8.5-10.1) Total Bilirubin 0.8 mg/dl (0.2-1) Aspartate Amino Transf (AST/SGOT) 15 U/L (15-37) Alanine Aminotransferase (ALT/SGPT) 16 U/L (12-78) Alkaline Phosphatase 45 U/L (45-117) Troponin I < 0.015 ng/ml (0-0.045) Total Protein 6.9 gm/dl (6.4-8.2) Albumin 3.5 gm/dl (3.4-5.0) Globulin 3.4 gm/dl (2.5-4.0) Albumin/Globulin Ratio 1.0 (0.9-2) Lipase 184 U/L (73-393) Laboratory results reviewed by me. ECG Indication: chest pain Rate (beats per minute): 71 Rhythm: sinus rhythm Findings: PAC, no acute ischemic change, other (Baseline artifact) Change: Patient's EKG was interpreted by me. ED Course 1213: The patient was evaluated in room C5. A complete history and physical exam was performed. 1402: I discussed the patient's case with Dr. Donaldson - Cardiology, and he feels that the patient can go home, and follow up with him in the office. 1412: Reevaluated the patient. Discussed results and discharge instructions: She verbalized understanding and agreement. The patient is ready for discharge. Medical Decision Differential diagnoses include: reflux, angina, [place], aortic dissection, PE, pneumonia, hiatal hernia, and esophageal spasm. There is no leukocytosis or concerning anemia. No significant electrolyte abnormality, kidney failure or hepatitis. INR is elevated and over the therapeutic window for someone using Coumadin. Chest x-ray shows some chronic findings to the left lung, this looks similar to previous films. No evidence for CHF or pneumothorax. EKG shows a sinus rhythm with PACs, no acute ischemia. Cardiac enzyme testing 1 is not consistent with acute cardiac injury. No evidence for pancreatitis. The patient presents with chest pain which occurred around 2 days ago. She is currently without any discomfort. Her workup here is benign and reassuring. I spoke with her research associate professor. The patient will be discharged with outpatient follow-up. At this point, the cause for the pain is unclear but the pain certainly seems noncardiac. Patient was encouraged to return for any worsening symptoms. Of note, the patient will hold her Coumadin for 2 days and then have her INR rechecked on Tuesday. She will see cardiology next week as well. Medication Reconcilliation Current Medication List: was personally reviewed by me Blood Pressure Screening Patient's blood pressure: Elevated blood pressure Blood pressure disposition: Referred to PCP Consults Time Called: 1359 Consulting Physician: Dr. Mendoza Lan Cardiology Returned Call: 1409 I discussed the patient's case with Dr. Mendoza Marie, and he feels that the patient can go home, and follow up with him in the office. Impression Primary Impression: Left sided chest pain Additional Impression: Supratherapeutic INR Scribe Attestation The scribe's documentation has been prepared under my direction and personally reviewed by me in its entirety. I confirm that the note above accurately reflects all work, treatment, procedures, and medical decision making performed by me. Departure Information Dispostion Home / Self-Care Referrals Laisha Martins (PCP) Forms HOME CARE DOCUMENTATION FORM, IMPORTANT VISIT INFORMATION Patient Instructions My [facility] Additional Instructions hold coumadin for 2 days and restart again on Tuesday need repeat INR check tuesday call and set up cardiology appt for next week be sure to have the blood pressure checked next week heart testing today was all ok return for worsening symptoms or pain Problem Qualifiers
[2017-04-29 13:25] LABS: HEMATOCRIT 43.4 % (37-47); HEMOGLOBIN 14.4 g/dL (12.0-16.0); MEAN CELL VOLUME 106.6 fL (80-100); MEAN CORPUSCULAR HEMOGLOBIN 35.4 pg (25-34); MEAN CORPUSCULAR HGB CONC 33.2 g/dl (32-36); PLATELET COUNT 213 K/uL (130-400); RED CELL DISTRIBUTION WIDTH CV 15.9 % (11.5-14.5); RED CELL DISTRIBUTION WIDTH SD 61.3 fL (36.4-46.3); WHITE BLOOD COUNT 9.18 K/uL (4.8-10.8)
[2017-04-29] MEDS ORDERED: ZOLE5INJ IV (13:27)
[2017-04-29] MEDS ORDERED: ACET-1256 PO (13:27)
[2017-04-29] MEDS ORDERED: FLUT0.15 INH (13:27)
[2017-04-29 13:39] LABS: PTT PATIENT 43.7 SECONDS (21.0-31.0)
[2017-04-29 13:45] LABS: ALBUMIN 3.5 gm/dl (3.4-5.0); ALT/SGPT 16 U/L (12-78); AST/SGOT 15 U/L (15-37); BLOOD UREA NITROGEN 18 mg/dl (7-18); CALCIUM 8.7 mg/dl (8.5-10.1); CARBON DIOXIDE 24 mmol/L (21-32); CREATININE 0.82 mg/dl (0.60-1.20); GLUCOSE 92 mg/dl (70-99); INR 5.3 (0.9-1.1); LIPASE 184 U/L (73-393); SODIUM 136 mmol/L (136-145)
[2017-04-29 13:50] LABS: ALKALINE PHOSPHATASE 45 U/L (45-117); TOTAL PROTEIN 6.9 gm/dl (6.4-8.2)
--- NOTE | 2017-04-29 13:50 | DIAGNOSTIC IMAGING REPORT ---
SINGLE VIEW CHEST CLINICAL HISTORY: Atypical chest pain. FINDINGS: An AP, portable, upright chest radiograph is compared to study dated 07/02/2016. The examination is degraded by portable technique and patient rotation. The cardiac silhouette is not well assessed. There is atherosclerotic calcification of the thoracic aorta. The pulmonary vasculature is noncongested. There is chronic elevation of left hemidiaphragm with a large hiatal hernia. Abdominal contents are present in the left lower thorax. There is consolidative change in the left lower lung. The right lung is grossly clear. Chronic interstitial thickening is similar to previous. A small left pleural effusion is suspected. No pneumothorax is seen. The skeletal structures are osteopenic. Advanced arthritic change is seen in the shoulders. IMPRESSION: 1. Consolidative change is seen at the left lung base. This could represent atelectasis versus pneumonia/aspiration pneumonitis. Clinical correlation will be required. 2. Suspect a trace left pleural effusion. 3. The right lung appears clear. 4. Large hiatal hernia. Electronically signed by: Haider Garnica M.D. 04/29/2017 1:48 PM Dictated Date/Time: 04/29/2017 1:46 PM
[2017-04-29 14:42] VITALS: BP 135/82; PULSE 64; O2SAT 98
== END 2017-04-29 14:43 | disposition home or self-care (01) ==
LOC: C.EDB 10:59 → C.EDC 14:43
DX: R07.9 Chest pain, unspecified (principal); R79.1 Abnormal coagulation profile; I48.91 Unspecified atrial fibrillation; J45.909 Unspecified asthma, uncomplicated; I10 Essential (primary) hypertension; I51.9 Heart disease, unspecified; M19.90 Unspecified osteoarthritis, unspecified site; Z82.49 Family history of ischemic heart disease and other diseases of the circulatory system; Z79.01 Long term (current) use of anticoagulants; Z51.81 Encounter for therapeutic drug level monitoring; K44.9 Diaphragmatic hernia without obstruction or gangrene

== ENCOUNTER → 2017-05-19 | Day surgery (SDC) | payer OTHER, BC ==
[2017-05-06 08:42] VITALS: Ht 162.6 cm; Wt 63.6 kg
[~2017-05-19] VITALS: Ht 162.6 cm; Wt 63.6 kg
[~2017-05-19] MED LIST changes: -CALC-20 PO; +FLUT0.15 INH; -GUAISYP4 PO; -LEVO1TAB33 PO; +LSN20 PO; +PSYL48.59 PO; +SENN-104 PO; -SENN-61 PO; +ZOLE5INJ IV
== END | disposition home or self-care (01) ==
LOC: EDSTATUS 08:15 → C.PAT 15:52
PROVIDERS: ATTEND Otolaryngology
DX: H65.499 Other chronic nonsuppurative otitis media, unspecified ear (principal); Z53.9 Procedure and treatment not carried out, unspecified reason

== ENCOUNTER → 2017-06-24 | Outpatient (CLI) | payer OTHER, BC | END | disposition home or self-care (01) | LOC: C.LABMFLN 07:47 | PROVIDERS: ATTEND Internal Medicine Cardiovascular Disease | DX: E78.5 Hyperlipidemia, unspecified (principal); I10 Essential (primary) hypertension ==

== ENCOUNTER 2018-12-07 03:59 | Inpatient (IN) ==
[2018-12-07] MEDS ORDERED: SODIUM CHLORIDE 0.9% 1000ML 500 ML IV ONE (04:21)
--- NOTE | 2018-12-07 04:27 | Emergency Department Note ---
History of Present Illness General Chief complaint: Illness Stated complaint: COUGH,PHLEM DOWN THROAT,TROUBLE STAYING AWAKE History of Present Illness Maximum Pain Intensity: 0 This 78-year-old presents to the ER complaining of cough, congestion, fatigue and weakness Location: Generalized Quality: Weak Severity: Moderate Duration: Past several days Timing: Symptoms started several days ago Context: Symptoms got worse and patient came in Modifying factors: better with rest; worse with activity states the patient has become more weak and coughing more. Patient yaron es chest pain, abdominal pain, vomiting, diarrhea. She is currently on antibiotics for UTI. They are unsure the name of the antibiotic. She takes Coumadin for A. fib. She is tolerating p.o. fluids and food. Patient is wheelchair-bound. Home Medications Home Medications Medication Instructions Recorded Confirmed Type Methotrexare 15 mg PO WK 12/07/18 12/07/18 History Probiotic Product 1 cap PO DAILY 12/07/18 12/07/18 History acetaminophen [Tylenol Extra 500 mg PO QID PRN 12/07/18 12/07/18 History Strength] atenolol 50 mg PO DAILY 12/07/18 12/07/18 History clonazepam 0.5 mg PO HS 12/07/18 12/07/18 History fluticasone propionate [Flonase 1 spray INTRANASAL DAILY 12/07/18 12/07/18 History Allergy Relief] folic acid 1 mg PO DIRECTED 12/07/18 12/07/18 History infliximab [Remicade] 100 mg IV DIRECTED 12/07/18 12/07/18 History lisinopril 20 mg PO DAILY 12/07/18 12/07/18 History nitrofurantoin macrocrystal 100 mg PO DIRECTED 12/07/18 12/07/18 History pantoprazole 20 mg PO DAILY 12/07/18 12/07/18 History prednisone 5 mg PO DAILY 12/07/18 12/07/18 History sennosides-docusate sodium [Senna 1 tab PO HS PRN 12/07/18 12/07/18 History Plus] simvastatin 20 mg PO PM 12/07/18 12/07/18 History valacyclovir [Valtrex] 1,000 mg PO DAILY 12/07/18 12/07/18 History warfarin [Coumadin] 2 mg PO DAILY 12/07/18 12/07/18 History Allergies Allergy/AdvReac Type Severity Reaction Status Date / Time amoxicillin Allergy Severe HIVES Verified 12/07/18 05:03 clavulanic acid Allergy Severe HIVES Verified 12/07/18 05:03 prochlorperazine Allergy Unknown FAINTING Verified 12/07/18 05:03 Past Med/Surg History Medical History A-fib (Chronic) Hiatal hernia Spinal stenosis (Acute) Social History Feels Safe at Home: Yes Smoking Status: Never smoker Review of Systems All systems reviewed & are unremarkable except as noted in HPI & below Physical Exam Vital Signs Vital Signs - 24 hr 12/07/18 04:02 12/07/18 04:10 12/07/18 04:15 Temperature 37.3 C Temperature Source Oral Sepsis Recent Fever Within 48 Hours No Sepsis Action Taken by Nursing No Action Required Pulse Rate 145 H 94 H Pulse Rate from SpO2 Sensor 92 H Respiratory Rate 18 37 H Respiratory Depth Normal Blood Pressure 147/76 H 146/98 H Blood Pressure Mean 99 114 Pulse Oximetry 93 92 93 Oxygen Delivery Method Room Air Room Air 12/07/18 04:31 12/07/18 04:41 12/07/18 05:00 Temperature Temperature Source Sepsis Recent Fever Within 48 Hours Sepsis Action Taken by Nursing Pulse Rate 116 H 89 94 H Pulse Rate from SpO2 Sensor 109 H 106 H Respiratory Rate 39 H 28 H 32 H Respiratory Depth Blood Pressure 126/69 127/91 Blood Pressure Mean 88 103 Pulse Oximetry 92 92 93 Oxygen Delivery Method Room Air 12/07/18 05:41 Temperature Temperature Source Sepsis Recent Fever Within 48 Hours Sepsis Action Taken by Nursing Pulse Rate 120 H Pulse Rate from SpO2 Sensor 110 H Respiratory Rate 32 H Respiratory Depth Blood Pressure 140/83 Blood Pressure Mean 102 Pulse Oximetry 94 Oxygen Delivery Method VITALS: Vitals are noted on the nurse's note and reviewed by myself. Vital signs slightly tachycardic. GENERAL: Pleasant elderly female, in no acute distress, nondiaphoretic, well- developed well-nourished. SKIN: The skin was without rashes, erythema, edema, or bruising. There is no tenting of the skin. Capillary reflex less than 2 seconds. HEAD: Normocephalic atraumatic. EARS: External auditory canals clear, tympanic membranes pearly noe without erythema or effusion bilaterally. EYES: Pupils equal round and reactive to light and accommodation. Conjunctivae without injection, sclerae without icterus. Extraocular movements intact. NOSE: Patent, turbinates without inflammation or discharge. No sinus tenderness. MOUTH: Mucous membranes mildly dry pharynx without erythema or exudate. Uvula midline. Airway patent. Tongue does not deviate. NECK: Supple without nuchal rigidity. No lymphadenopathy. No thyromegaly. Cervical spine is nontender. No JVD. HEART: Irregularly irregular LUNGS: Clear to auscultation bilaterally without wheezes, rales or rhonchi. No retractions or accessory muscle use. ABDOMEN: Positive bowel sounds x 4. Normal tympanic percussion. Soft, nontender, without masses or organomegaly. Mims sign negative. No guarding or rebound tenderness. No CVA tenderness MUSCULOSKELETAL: No muscle atrophy, erythema, or edema noted. NEURO: Patient was alert and oriented to person place but not time. Normal sensation to light and sharp touch. No focal neurological deficits. Course Administered Medications Discontinued Medications Acetaminophen (Tylenol) 500 mg PO NOW STA Stop: 12/07/18 05:37 Last Admin: 12/07/18 05:41 Dose: 500 mg Documented by: [id number] Azithromycin (Zithromax) 500 mg PO NOW ONE Stop: 12/07/18 05:06 Last Admin: 12/07/18 05:42 Dose: 500 mg Documented by: [id number] Sodium Chloride (Nss 1000ml) 500 mls @ 999 mls/hr IV .Q31M ONE Stop: 12/07/18 04:51 Last Infusion: 12/07/18 05:46 Dose: 0 mls/hr Documented by: [id number] Admin: 12/07/18 04:58 Dose: 999 mls/hr Documented by: [id number] Ceftriaxone Sodium (Rocephin) 1,000 mg in 50 mls @ 100 mls/hr IV NOW STA Stop: 12/07/18 05:34 Last Admin: 12/07/18 05:42 Dose: 100 mls/hr Documented by: [id number] Medical Decision Making Medical Records Attestation: I reviewed the patient's medical records. Home Medications Current Medication List: was personally reviewed by me Laboratory Data Attestation: I reviewed the patient's lab results. Result diagrams: 12/07/18 04:35 12/07/18 04:35 Lab Results 12/07/18 12/07/18 12/07/18 Range/Units 04:35 04:35 04:35 WBC 12.14 H (4.8-10.8) K/uL RBC 4.06 L (4.2-5.4) M/uL Hgb 13.8 (12.0-16.0) g/dL Hct 41.1 (37-47) % MCV 101.2 H (80-100) fL MCH 34.0 (25-34) pg MCHC 33.6 (32-36) g/dL RDW Std Deviation 55.6 H (36.4-46.3) fL RDW Coeff of [place] 15.2 H (11.5-14.5) % Plt Count 273 (130-400) K/uL MPV 9.5 (7.4-10.4) fL Immature Gran % (Auto) 0.3 % Neut % (Auto) 58.8 % Lymph % (Auto) 25.1 % [place] % (Auto) 10.1 % Eos % (Auto) 5.2 % Baso % (Auto) 0.5 % Immature Gran # (Auto) 0.04 H (0.00-0.02) K/uL Neut # (Auto) 7.13 H (1.4-6.5) K/uL Lymph # (Auto) 3.05 (1.2-3.4) K/uL [place] # (Auto) 1.23 H (0.11-0.59) K/uL Eos # (Auto) 0.63 H (0-0.5) K/uL Baso # (Auto) 0.06 (0-0.2) K/uL PT 19.3 H (9.0-12.0) Seconds INR 2.0 H (0.9-1.1) Sodium 136 (136-145) mmol/L Potassium 3.7 (3.5-5.1) mmol/L Chloride 104 (98-107) mmol/L Carbon Dioxide 22 (21-32) mmol/L Anion Gap 10.0 (3-11) BUN 14 (7-18) mg/dl Creatinine 0.68 (0.6-1.2) mg/dl Est Cr Clr Drug Dosing Not Reportable Est GFR ( Amer) 98.5 Est GFR (Non-Af Amer) 85.0 BUN/Creatinine Ratio 20.5 H (10-20) Glucose 105 H (70-99) mg/dl POC Lactic Acid Aditya (0.90-1.70) mmol/L Calcium 8.2 L (8.5-10.1) mg/dl Magnesium 2.2 (1.8-2.4) mg/dl Total Bilirubin 1.1 H (0.2-1) mg/dl AST 26 (15-37) U/L ALT 10 L (12-78) U/L Alkaline Phosphatase 65 (45-117) U/L Total Creatine Kinase 26 (26-192) U/L Troponin I < 0.015 (0-0.045) ng/ml Total Protein 6.7 (6.4-8.2) gm/dl Albumin 2.9 L (3.4-5.0) gm/dl Globulin 3.8 (2.5-4.0) gm/dl Albumin/Globulin Ratio 0.8 L (0.9-2) TSH 3.230 (0.300-4.500) uIu/ml Urine Color Urine Appearance (Clear) Urine pH (4.5-7.5) Ur Specific [place] (1.000-1.030) Urine Protein (Negative) Urine Glucose (UA) (Negative) Urine Ketones (Negative) Urine Blood (Negative) Urine Nitrite (Negative) Urine Bilirubin (Negative) Urine Urobilinogen (Negative) Ur Leukocyte Esterase (Negative) Urine WBC (Auto) (0-5) /hpf Urine RBC (Auto) (0-4) /hpf U Hyaline Cast (Auto) (0-5) /lpf U Epithel Cells (Auto) (0-5) /lpf Urine Bacteria (Auto) (Negative) 12/07/18 12/07/18 Range/Units 04:50 05:23 WBC (4.8-10.8) K/uL RBC (4.2-5.4) M/uL Hgb (12.0-16.0) g/dL Hct (37-47) % MCV (80-100) fL MCH (25-34) pg MCHC (32-36) g/dL RDW Std Deviation (36.4-46.3) fL RDW Coeff of Juliet (11.5-14.5) % Plt Count (130-400) K/uL MPV (7.4-10.4) fL Immature Gran % (Auto) % Neut % (Auto) % Lymph % (Auto) % [place] % (Auto) % Eos % (Auto) % Baso % (Auto) % Immature Gran # (Auto) (0.00-0.02) K/uL Neut # (Auto) (1.4-6.5) K/uL Lymph # (Auto) (1.2-3.4) K/uL [place] # (Auto) (0.11-0.59) K/uL Eos # (Auto) (0-0.5) K/uL Baso # (Auto) (0-0.2) K/uL PT (9.0-12.0) Seconds INR (0.9-1.1) Sodium (136-145) mmol/L Potassium (3.5-5.1) mmol/L Chloride (98-107) mmol/L Carbon Dioxide (21-32) mmol/L Anion Gap (3-11) BUN (7-18) mg/dl Creatinine (0.6-1.2) mg/dl Est Cr Clr Drug Dosing Est GFR ( Amer) Est GFR (Non-Af Amer) BUN/Creatinine Ratio (10-20) Glucose (70-99) mg/dl POC Lactic Acid Aditya 1.17 (0.90-1.70) mmol/L Calcium (8.5-10.1) mg/dl Magnesium (1.8-2.4) mg/dl Total Bilirubin (0.2-1) mg/dl AST (15-37) U/L ALT (12-78) U/L Alkaline Phosphatase (45-117) U/L Total Creatine Kinase (26-192) U/L Troponin I (0-0.045) ng/ml Total Protein (6.4-8.2) gm/dl Albumin (3.4-5.0) gm/dl Globulin (2.5-4.0) gm/dl Albumin/Globulin Ratio (0.9-2) TSH (0.300-4.500) uIu/ml Urine Color Yellow Urine Appearance Clear (Clear) Urine pH 8.0 H (4.5-7.5) Ur Specific [place] 1.015 (1.000-1.030) Urine Protein Negative (Negative) Urine Glucose (UA) Negative (Negative) Urine Ketones Negative (Negative) Urine Blood Trace H (Negative) Urine Nitrite Negative (Negative) Urine Bilirubin Negative (Negative) Urine Urobilinogen Negative (Negative) Ur Leukocyte Esterase Negative (Negative) Urine WBC (Auto) 1-5 (0-5) /hpf Urine RBC (Auto) 0-4 (0-4) /hpf U Hyaline Cast (Auto) 1-5 (0-5) /lpf U Epithel Cells (Auto) 5-10 H (0-5) /lpf Urine Bacteria (Auto) Negative (Negative) Imaging Data Attestation: I personally reviewed and interpreted this imaging study as follows: Blood Pressure Blood Pressure Findings: Elevated blood pressure Blood Pressure Disposition: Referred to patients primary care provider [facility] Narrative Prior records/ancillary studies reviewed and summarized above. Nursing notes reviewed. Additional history obtained from family. The patient's history was concerning for cough, congestion, weakness. Differential diagnosis: Etiologies such as metabolic, infection, hypo/hyperglycemia, electrolyte abnormalities, cardiac sources, intracerebral event, toxicologic, neurologic, as well as others were entertained. Physical examination: As above. ER treatment provided: IV Lock IV fluids, Rocephin, Zithromax On reassessment the patient felt better. Diagnostics interpretation by me: ECG: Ordered for dyspnea EKG: Irregularly irregular with occasional PVC with ventricular rate of 94. Impression a flutter with PVCs interpreted by myself The labs revealed leukocytosis. Negative urine Blood cultures pending Imaging studies: Chest x-ray with concerns for right lower lobe pneumonia per my interpretation CURB Score: Confusion: 0 Urea (BUN > 19): 0 Respiratory Rate (>30/min): 1 Blood Pressure: Diastolic <60 or Systolic <90 0 Age (>= 65) 1 Total (0-1 low risk, 2-5 high risk): 2 Consultation: A consultation was placed with the hospitalist, Dr. Garcia. The case was discussed and diagnostics were reviewed. The patient was evaluated in the ER for further treatment. Exam and history seem consistent with pneumonia. Patient started on antibiotics for UTI. Medicine was consulted. Patient and family agreeable to treatment plan of admission. By the evaluation outlined above emergent etiologies such as electrolyte abnormalities, cardiac sources, intracerebral event, toxologic, neurologic, abnormalities blood glucose, metabolic, as well as others were deemed relatively unlikely. The patient and family informed about the findings as listed above. All questions were answered and pleased with the treatment. Case reviewed with my attending The chart was completed utilizing [employer] Speech voice recognition software. Grammatical errors, random word insertions, pronoun errors, and incomplete sentences are an occassional consequence of this system due to software limitations, ambient noise, and hardware issues. Any formal questions or concerns about the content, text, or information contained within the body of this dictation should be directly addressed to the physician environmental services assistant for clarification. Impression & Plan Pneumonia, Weakness Discharge Plan Visit Data Chief Complaint: Illness Stated Complaint: COUGH,PHLEM DOWN THROAT,TROUBLE STAYING AWAKE ED Provider: Jolynn Elliott ED Midlevel Provider: Mery Cowart Discharge Problem: Pneumonia, Weakness Patient Disposition: Admitted As Inpatient Condition: Fair Forms Stand Alone Forms: [facility] Prescriptions Prescriptions: No Action pantoprazole 20 mg Tablet,Delayed Release (Dr/Ec) 20 mg PO DAILY RF: 0 Probiotic Product 1 cap PO DAILY RF: 0 acetaminophen [Tylenol Extra Strength] 500 mg Tablet 500 mg PO QID PRN (Reason: Pain) RF: 0 prednisone 5 mg Tablet 5 mg PO DAILY RF: 0 folic acid 1 mg Tablet 1 mg PO DIRECTED RF: 0 Methotrexare 15 mg PO WK RF: 0 simvastatin 20 mg Tablet 20 mg PO PM RF: 0 lisinopril 20 mg Tablet 20 mg PO DAILY RF: 0 atenolol 50 mg Tablet 50 mg PO DAILY RF: 0 sennosides-docusate sodium [Senna Plus] 8.6-50 mg Tablet 1 tab PO HS PRN (Reason: Constipation) RF: 0 clonazepam 0.5 mg Tablet 0.5 mg PO HS RF: 0 warfarin [Coumadin] 2 mg Tablet 2 mg PO DAILY RF: 0 Remicade 100 mg Recon Soln 100 mg IV DIRECTED RF: 0 valacyclovir [Valtrex] 1 gram Tablet 1,000 mg PO DAILY RF: 0 fluticasone propionate [Flonase Allergy Relief] 50 mcg/actuation [place],Suspension 1 spray INTRANASAL DAILY RF: 0 nitrofurantoin macrocrystal 100 mg Capsule 100 mg PO DIRECTED RF: 0 Referrals Referrals: Laisha Martins CRNP [Primary Care Provider] - Discharge Problem: Pneumonia Qualifiers: Pneumonia type: due to unspecified organism Laterality: right Lung location: lower lobe of lung Qualified Code(s): J18.1 - Lobar pneumonia, unspecified organism
[2018-12-07 04:47] LABS: Basophils # (auto) 0.06 K/uL (0-0.2); Basophils % (auto) 0.5 %; Eosinophils # (auto) 0.63 K/uL (0-0.5); Eosinophils % (auto) 5.2 %; Hematocrit (blood only) 41.1 % (37-47); Hemoglobin 13.8 g/dL (12.0-16.0); Immature Granulocytes # (auto) 0.04 K/uL (0.00-0.02); Immature Granulocytes % (auto) 0.3 %; Lymphocytes # (auto) 3.05 K/uL (1.2-3.4); Lymphocytes % (auto) 25.1 %; Mean Corpuscular Hgb Conc 33.6 g/dL (32-36); Mean Corpuscular Volume 101.2 fL (80-100); Mean Platelet Volume 9.5 fL (7.4-10.4); Monocytes # (auto) 1.23 K/uL (0.11-0.59); Monocytes % (auto) 10.1 %; Neutrophils # (auto) 7.13 K/uL (1.4-6.5); Neutrophils % (auto) 58.8 %; Platelet Count 273 K/uL (130-400); RDW Coefficient of Variation 15.2 % (11.5-14.5); RDW Standard Deviation 55.6 fL (36.4-46.3); Red Blood Count 4.06 M/uL (4.2-5.4); White Blood Count 12.14 K/uL (4.8-10.8)
[2018-12-07 05:04] LABS: Appearance Urine Clear (Clear); Bacteria Urine Automated Negative (Negative); Bilirubin Urine Negative (Negative); Blood Urine Trace (Negative); Color Urine Yellow; Glucose Urine UA Negative (Negative); Ketones Urine Negative (Negative); Leukocyte Esterase Urine Negative (Negative); Nitrite Urine Negative (Negative); RBC Urine Automated 0-4 /hpf (0-4); Specific Gravity Urine 1.015 (1.000-1.030); Urobilinogen Urine Negative (Negative)
[2018-12-07 05:04] LABS: Alanine Aminotransferase 10 U/L (12-78); Albumin Level 2.9 gm/dl (3.4-5.0); Aspartate Aminotransferase 26 U/L (15-37); BUN Creatinine Ratio 20.5 (10-20); Blood Urea Nitrogen 14 mg/dl (7-18); Calcium 8.2 mg/dl (8.5-10.1); Carbon Dioxide 22 mmol/L (21-32); Chloride 104 mmol/L (98-107); Est GFR (African American) 98.5; Glucose 105 mg/dl (70-99); Magnesium 2.2 mg/dl (1.8-2.4); Potassium 3.7 mmol/L (3.5-5.1); Sodium 136 mmol/L (136-145)
[2018-12-07 05:05] LABS: Prothrombin Time 19.3 Seconds (9.0-12.0)
[2018-12-07] MEDS ORDERED: AZITHROMYCIN 250 MG TAB PO ONE (05:05)
[2018-12-07] MEDS ORDERED: cefTRIAXone SODIUM 1,000 MG/50 ML BAG IV STA (05:05)
[2018-12-07 05:15] LABS: Albumin Globulin Ratio 0.8 (0.9-2); Alkaline Phosphatase 65 U/L (45-117); Bilirubin,Total 1.1 mg/dl (0.2-1); Creatine Kinase 26 U/L (26-192); Globulin 3.8 gm/dl (2.5-4.0); Total Protein 6.7 gm/dl (6.4-8.2); Troponin I < 0.015 ng/ml (0-0.045)
[2018-12-07 05:20] LABS: Protein Urine Negative (Negative)
[2018-12-07] MEDS ORDERED: ACETAMINOPHEN 500 MG TAB PO STA (05:36)
--- NOTE | 2018-12-07 05:49 | Emergency Department Note ---
ED Visit Note Patient seen and evaluated at bedside after discussion with physician retail event assistant. Patient and made aware of all results and were in agreement with plan. Patient not hypoxic, afebrile. Patient is anticoagulated to a prior history of A. fib and a flutter. Please refer to the PA note for additional details. Patient evaluated by [facility] service for additional mgmt. . : Pneumonia Qualifiers: Pneumonia type: due to unspecified organism Laterality: right Lung location: lower lobe of lung Qualified Code(s): J18.1 - Lobar pneumonia, unspecified [facility]
--- NOTE | 2018-12-07 06:48 | History & Physical Report ---
Date of Service December 07, 2018 Assessment & Plan (1) Pneumonia: Guaifenesin extended releasePatient is immunocompromised taking both Remicade and methotrexate. Received ceftriaxone and azithromycin IV in the ED. We will admit on vancomycin IV and aztreonam IV. Pulmicort Respules 0.5 mg inhaled twice daily. Guaifenesin extended release 600 mg p.o. twice daily Duo nebs 4 times daily and every 2 hours as needed. Sputum Gram stain and culture Present on Admission?: Yes (2) Weakness: Secondary to pneumonia and aggravation of underlying medical issues. May require PT/OT assessment prior to discharge. Present on Admission?: Yes (3) A-fib: Atrial fibrillation/hypertension- Continue atenolol and lisinopril with hold parameters. Present on Admission?: Yes (4) Rheumatoid arthritis: Her usual immunosuppressive medications of Remicade and methotrexate will need to be held during current illness. She is on prednisone 5 mg p.o. daily, will place her on stress dose hydrocortisone 5 mg IV every 8 hours for 2 days Present on Admission?: Yes (5) Hyperlipidemia: Continue simvastatin 20 mg daily Present on Admission?: Yes (6) GERD (gastroesophageal reflux disease): Change pantoprazole from 20 to 40 mg daily Present on Admission?: Yes (7) Hypertension: See above Present on Admission?: Yes History of Present Illness Chief Complaint: The patient presents to the emergency department, with her , with complaint of worsening cough, chest congestion, fatigue and generalized weakness Primary Care Provider: RANCHO Morales The patient is a 78-year-old female who presents to the emergency department with the above complaints. She is immunocompromised, taking methotrexate and Remicade on a scheduled basis. Allergies Allergy/AdvReac Type Severity Reaction Status Date / Time amoxicillin Allergy Severe HIVES Verified 12/07/18 05:03 clavulanic acid Allergy Severe HIVES Verified 12/07/18 05:03 prochlorperazine Allergy Unknown FAINTING Verified 12/07/18 05:03 Home Medications Home Medications Medication Instructions Recorded Confirmed Type Methotrexare 15 mg PO WK 12/07/18 12/07/18 History Probiotic Product 1 cap PO DAILY 12/07/18 12/07/18 History acetaminophen [Tylenol Extra 500 mg PO QID PRN 12/07/18 12/07/18 History Strength] atenolol 50 mg PO DAILY 12/07/18 12/07/18 History clonazepam 0.5 mg PO HS 12/07/18 12/07/18 History fluticasone propionate [Flonase 1 spray INTRANASAL DAILY 12/07/18 12/07/18 History Allergy Relief] folic acid 1 mg PO DIRECTED 12/07/18 12/07/18 History infliximab [Remicade] 100 mg IV DIRECTED 12/07/18 12/07/18 History lisinopril 20 mg PO DAILY 12/07/18 12/07/18 History nitrofurantoin macrocrystal 100 mg PO DIRECTED 12/07/18 12/07/18 History pantoprazole 20 mg PO DAILY 12/07/18 12/07/18 History prednisone 5 mg PO DAILY 12/07/18 12/07/18 History sennosides-docusate sodium [Senna 1 tab PO HS PRN 12/07/18 12/07/18 History Plus] simvastatin 20 mg PO PM 12/07/18 12/07/18 History valacyclovir [Valtrex] 1,000 mg PO DAILY 12/07/18 12/07/18 History warfarin [Coumadin] 2 mg PO DAILY 12/07/18 12/07/18 History Past Med/Surg History Medical History A-fib (Chronic) Hiatal hernia Spinal stenosis (Acute) Social History Feels Safe at Home: Yes Smoking Status: Never smoker Review of Systems Review of Systems: The patient denies chest pain, palpitations, lower extremity swelling, sore throat, fevers, chills, sweats, nausea, vomiting, diarrhea , constipation, abdominal pain, pelvic pain, blood in urine or stool, dysuria, urinary frequency or urgency, lightheadedness, dizziness, loss of consciousness, rash, abnormal bruising or bleeding, imbalance, focal or generalized weakness, numbness or tingling in arms or legs, generalized arthralgias or myalgias, back or neck pain, or night sweats. The review of systems is otherwise negative other than for that already noted above, and at least 10 systems have been reviewed. Physical Exam Physical Exam: The patient is awake, alert and oriented 3, well developed and well nourished, normocephalic and atraumatic, lying in bed and in no acute distress. HEENT--PERRL, EOMI, mucous membranes and oropharynx Neck--supple. No JVD. No bruits. Thyroid normal, trachea midline, no adenopathy. Heart--normal S1 and S2. No murmurs, rubs or gallops. Lungs-- coarse breath sounds bilaterally right greater than left Abdomen--normal bowel sounds and soft. Nontender. Nondistended. Extremities--no cyanosis or clubbing. No edema. There are good distal pulses b/l. Dermatologic--normal skin turgor, normal color, no abnormal lymph nodes, no rash. Neurologic--cranial nerves II through XII grossly intact. Rheumatologic--normal range of motion. Psychiatric--normal affect. Normal. Results & Data Vital Signs (Past 12 Hours) Vital Signs Temp Pulse Resp BP Pulse Ox 12/07/18 05:41 120 H 32 H 140/83 94 12/07/18 05:00 94 H 32 H 127/91 93 12/07/18 04:41 89 28 H 92 12/07/18 04:31 116 H 39 H 126/69 92 12/07/18 04:15 94 H 37 H 146/98 H 93 12/07/18 04:10 92 12/07/18 04:02 99.1 F 145 H 18 147/76 H 93 Laboratory Results Laboratory Results WBC 12.14 K/uL (4.8-10.8) H 12/07/18 04:35 RBC 4.06 M/uL (4.2-5.4) L 12/07/18 04:35 Hgb 13.8 g/dL (12.0-16.0) 12/07/18 04:35 Hct 41.1 % (37-47) 12/07/18 04:35 MCV 101.2 fL (80-100) H 12/07/18 04:35 MCH 34.0 pg (25-34) 12/07/18 04:35 MCHC 33.6 g/dL (32-36) 12/07/18 04:35 RDW Std Deviation 55.6 fL (36.4-46.3) H 12/07/18 04:35 RDW Coeff of Juliet 15.2 % (11.5-14.5) H 12/07/18 04:35 Plt Count 273 K/uL (130-400) 12/07/18 04:35 MPV 9.5 fL (7.4-10.4) 12/07/18 04:35 Immature Gran % (Auto) 0.3 % 12/07/18 04:35 Neut % (Auto) 58.8 % 12/07/18 04:35 Lymph % (Auto) 25.1 % 12/07/18 04:35 [place] % (Auto) 10.1 % 12/07/18 04:35 Eos % (Auto) 5.2 % 12/07/18 04:35 Baso % (Auto) 0.5 % 12/07/18 04:35 Immature Gran # (Auto) 0.04 K/uL (0.00-0.02) H 12/07/18 04:35 Neut # (Auto) 7.13 K/uL (1.4-6.5) H 12/07/18 04:35 Lymph # (Auto) 3.05 K/uL (1.2-3.4) 12/07/18 04:35 [place] # (Auto) 1.23 K/uL (0.11-0.59) H 12/07/18 04:35 Eos # (Auto) 0.63 K/uL (0-0.5) H 12/07/18 04:35 Baso # (Auto) 0.06 K/uL (0-0.2) 12/07/18 04:35 PT 19.3 Seconds (9.0-12.0) H 12/07/18 04:35 INR 2.0 (0.9-1.1) H 12/07/18 04:35 Sodium 136 mmol/L (136-145) 12/07/18 04:35 Potassium 3.7 mmol/L (3.5-5.1) 12/07/18 04:35 Chloride 104 mmol/L (98-107) 12/07/18 04:35 Carbon Dioxide 22 mmol/L (21-32) 12/07/18 04:35 Anion Gap 10.0 (3-11) 12/07/18 04:35 BUN 14 mg/dl (7-18) 12/07/18 04:35 Creatinine 0.68 mg/dl (0.6-1.2) 12/07/18 04:35 Est Cr Clr Drug Dosing Not Reportable 12/07/18 04:35 Est GFR ( Amer) 98.5 12/07/18 04:35 Est GFR (Non-Af Amer) 85.0 12/07/18 04:35 BUN/Creatinine Ratio 20.5 (10-20) H 12/07/18 04:35 Glucose 105 mg/dl (70-99) H 12/07/18 04:35 POC Lactic Acid Aditya 1.17 mmol/L (0.90-1.70) 12/07/18 05:23 Calcium 8.2 mg/dl (8.5-10.1) L 12/07/18 04:35 Magnesium 2.2 mg/dl (1.8-2.4) 12/07/18 04:35 Total Bilirubin 1.1 mg/dl (0.2-1) H 12/07/18 04:35 AST 26 U/L (15-37) 12/07/18 04:35 ALT 10 U/L (12-78) L 12/07/18 04:35 Alkaline Phosphatase 65 U/L (45-117) 12/07/18 04:35 Total Creatine Kinase 26 U/L (26-192) 12/07/18 04:35 Troponin I < 0.015 ng/ml (0-0.045) 12/07/18 04:35 NT-Pro-B Natriuret Pep 3361 pg/ml (0-1800) H 12/07/18 04:35 Total Protein 6.7 gm/dl (6.4-8.2) 12/07/18 04:35 Albumin 2.9 gm/dl (3.4-5.0) L 12/07/18 04:35 Globulin 3.8 gm/dl (2.5-4.0) 12/07/18 04:35 Albumin/Globulin Ratio 0.8 (0.9-2) L 12/07/18 04:35 TSH 3.230 uIu/ml (0.300-4.500) 12/07/18 04:35 Urine Color Yellow 12/07/18 04:50 Urine Appearance Clear (Clear) 12/07/18 04:50 Urine pH 8.0 (4.5-7.5) H 12/07/18 04:50 Ur Specific [place] 1.015 (1.000-1.030) 12/07/18 04:50 Urine Protein Negative (Negative) 12/07/18 04:50 Urine Glucose (UA) Negative (Negative) 12/07/18 04:50 Urine Ketones Negative (Negative) 12/07/18 04:50 Urine Blood Trace (Negative) H 12/07/18 04:50 Urine Nitrite Negative (Negative) 12/07/18 04:50 Urine Bilirubin Negative (Negative) 12/07/18 04:50 Urine Urobilinogen Negative (Negative) 12/07/18 04:50 Ur Leukocyte Esterase Negative (Negative) 12/07/18 04:50 Urine WBC (Auto) 1-5 /hpf (0-5) 12/07/18 04:50 Urine RBC (Auto) 0-4 /hpf (0-4) 12/07/18 04:50 U Hyaline Cast (Auto) 1-5 /lpf (0-5) 12/07/18 04:50 U Epithel Cells (Auto) 5-10 /lpf (0-5) H 12/07/18 04:50 Urine Bacteria (Auto) Negative (Negative) 12/07/18 04:50 Code Status & VTE Plan Code Status Full code VTE Prophylaxis Plan VTE Prophylaxis will be ordered: Yes PG Care Time/CCT Total # of Minutes Spent Total Time Spent with Patient: Total time spent is greater than 50% in coordination of care (as documented) at patient's floor/unit and/or counseling patient: (1) Pneumonia Laterality: right Lung location: lower lobe of lung Pneumonia type: due to unspecified organism Qualified Code(s): J18.1 - Lobar pneumonia, unspecified organism
[2018-12-07] MEDS ORDERED: HYDROCORTISONE SOD SUCCINATE 100 MG/2 ML VIAL IV SCH (07:00)
[2018-12-07] MEDS: ALBUT/IPRATROP 3MG/0.5MG NEB 3 ML VIAL NEB SCH ×4 (07:41→19:00)
--- NOTE | 2018-12-07 07:48 | XRay Report ---
XR chest 1V portable HISTORY: weakness COMPARISON: Chest 07/28/2018. FINDINGS: Slight progression of the diffuse interstitial thickening with hazy bibasilar airspace opac ities. The heart remains enlarged. There is a large hiatus hernia, unchanged. No pneumothorax. Advanc ed degenerative changes within the shoulders. Suspect trace bilateral pleural effusions. IMPRESSION: 1. Interval progression of the diffuse interstitial thickening with trace bilateral pleural effusions . This suggests pulmonary edema on the background of chronic interstitial lung disease. 2. Large hiatus hernia, unchanged. Electronically signed by: Tiburcio Arzola M.D. 12/07/2018 7:46 AM
[2018-12-07] MEDS ORDERED: ALUMINUM/MAGNESIUM SUSP 30 ML UDC PO PRN (08:02)
[2018-12-07] MEDS ORDERED: ACETAMINOPHEN 500 MG TAB PO PRN (08:02)
[2018-12-07] MEDS ORDERED: ONDANSETRON INJ 2 MG/ML 2 ML VIAL IV PRN (08:02)
[2018-12-07] MEDS ORDERED: DOCUSATE SODIUM/SENNA 50/8.6MG TAB PO PRN (08:02)
[2018-12-07] MEDS ORDERED: VANCOMYCIN CONSULT ACTIVE PRN (08:02)
[2018-12-07] MEDS ORDERED: MAGNESIUM HYDROXIDE SUSP 30 ML UDC PO PRN (08:02)
[2018-12-07] MEDS ORDERED: VANCOMYCIN HCL 1,000 MG in SODIUM CHLORIDE 0.9% 250 ML IV SCH (08:02)
[2018-12-07] MEDS ORDERED: POLYETHYLENE (MIRALAX) 17 GM PACK PO PRN (08:02)
[2018-12-07] MEDS ORDERED: VANCOMYCIN HCL 1,500 MG in SODIUM CHLORIDE 0.9% 500 ML IV SCH (09:00)
[2018-12-07] MEDS ORDERED: AZTREONAM 1,000 MG in DEXTROSE 5% 100 ML IV SCH (09:00)
[2018-12-07] MEDS ORDERED: VALACYCLOVIR HCL 500 MG TABLET PO PRN (09:00)
[2018-12-07] MEDS: FLUTICASONE PROPIONATE NA SPR 16 GM BTL SCH (09:40)
[2018-12-07] MEDS: LACTOBACILLUS ACIDOPHILUS (FLORANEX) TAB PO SCH (09:40)
[2018-12-07] MEDS: guaiFENesin 600 MG TABCR PO SCH ×2 (09:41→20:26)
[2018-12-07] MEDS: predniSONE 5 MG TAB PO SCH (09:41)
[2018-12-07] MEDS: FOLIC ACID 1 MG TAB PO SCH (09:41)
[2018-12-07] MEDS: PANTOprazole 40 MG TAB PO SCH (09:42)
[2018-12-07] MEDS: HYDROCORTISONE SOD 100 MG in SYRINGE 0 ML IV SCH ×2 (09:42→16:35)
[2018-12-07] MEDS: ATENOLOL 50 MG TABLET PO SCH (09:42)
[2018-12-07] MEDS: LISINOPRIL 20 MG TAB PO SCH (09:42)
--- NOTE | 2018-12-07 11:39 | Hospitalist Progress Note ---
Date of Service December 07, 2018 Assessment & Plan (1) Pneumonia: CXR with bilateral opacities and small effusions MRSA swab negative - will place on ceftriaxone and azithromycin Pulmicort Respules 0.5 mg inhaled twice daily. Guaifenesin extended release 600 mg p.o. twice daily Duo nebs 4 times daily and every 2 hours as needed. Sputum Gram stain and culture (2) Weakness: Secondary to pneumonia and aggravation of underlying medical issues. May require PT/OT assessment prior to discharge. (3) A-fib: Atrial fibrillation/hypertension- Continue atenolol and lisinopril with hold parameters. Continue warfarin - INR will be monitored daily, watch for interaction with azithromycin (4) Rheumatoid arthritis: Her usual immunosuppressive medications of Remicade and methotrexate will need to be held during current illness. She is on prednisone 5 mg p.o. daily, will place her on stress dose hydrocortisone 5 mg IV every 8 hours for 24 hours (5) Hyperlipidemia: Continue simvastatin 20 mg daily (6) GERD (gastroesophageal reflux disease): Change pantoprazole from 20 to 40 mg daily (7) Hypertension: See above (8) DVT prophylaxis: Warfarin Subjective Ms. Mercedes is sitting up and smiling, pleasant in conversation with no specific complaints. Her is bedside and reports she has memory issues. He initially brought her to the ED for labored breathing and fatigue. Review of Systems Review of Systems: All systems reviewed & are unremarkable except as noted in HPI & below Physical Exam Physical Exam: General: no distress Eyes: normal inspection, PERLL Respiratory: chest non tender, clear to auscultation, normal breath sounds, no respiratory distress, no accessory muscle use Cardiac: regular rate and rhythm, no rub or gallop, no murmur, no edema, no jvd GI/: active bowel sounds, no abd pain or tenderness, soft, non distended Extremities: normal range of motion, normal strength, non tender Neuro/Psych: alert and oriented x 3, normal mood and affect Skin: normal color, dry Results & Data Vital Signs (Past 12 Hours) Vital Signs Temp Pulse Pulse Resp BP BP Pulse Ox 12/07/18 11:14 68 18 93 12/07/18 08:08 37.3 C 73 18 144/82 H 94 12/07/18 07:44 71 16 94 12/07/18 07:00 69 26 H 111/62 93 12/07/18 06:30 74 32 H 133/81 93 12/07/18 06:00 66 35 H 122/68 93 12/07/18 05:41 120 H 32 H 140/83 94 12/07/18 05:00 94 H 32 H 127/91 93 12/07/18 04:41 89 28 H 92 12/07/18 04:31 116 H 39 H 126/69 92 12/07/18 04:15 94 H 37 H 146/98 H 93 12/07/18 04:10 92 12/07/18 04:02 37.3 C 145 H 18 147/76 H 93 PG Care Time/CCT Total # of Minutes Spent Total Time Spent with Patient: Total time spent is greater than 50% in coordination of care (as documented) at patient's floor/unit and/or counseling patient: (1) Pneumonia Laterality: right Lung location: lower lobe of lung Pneumonia type: due to unspecified organism Qualified Code(s): J18.1 - Lobar pneumonia, unspecified organism
[2018-12-07] MEDS: BUDESONIDE 0.5 MG/2 ML VIAL (PULMICORT) NEB SCH ×2 (11:44→19:00)
[2018-12-07] MEDS ORDERED: Nursing to Pharmacy Communication ONE (12:31)
[2018-12-07] MEDS: WARFARIN SOD 2 MG TAB PO SCH (16:35)
[2018-12-07] MEDS: SIMVASTATIN 20 MG TAB PO SCH (20:26)
[2018-12-07] MEDS: clonazePAM 0.5 MG TAB PO SCH (20:30)
[2018-12-07] MEDS: ACETAMINOPHEN 325 MG TAB PO PRN (20:30)
[2018-12-07] MEDS ORDERED: COUGH DROP (SUGAR FREE) LOZ 24 LOZ/1 BOX BUCCAL ONE (21:24)
[2018-12-07] MEDS ORDERED: BENZONATATE 100 MG CAPSULE PO ONE (21:40)
[2018-12-08] MEDS: HYDROCORTISONE SOD 100 MG in SYRINGE 0 ML IV SCH (02:26)
[2018-12-08] MEDS: AZITHROMYCIN 500 MG in DEXTROSE 5% 250 ML IV SCH (04:28)
[2018-12-08] MEDS: ACETAMINOPHEN 325 MG TAB PO PRN ×2 (05:16→20:58)
[2018-12-08] MEDS: cefTRIAXone SODIUM 1,000 MG in DEXTROSE 5% 50 ML IV SCH (05:35)
[2018-12-08 06:23] LABS: Hematocrit (blood only) 40.8 % (37-47); Hemoglobin 13.6 g/dL (12.0-16.0); Mean Corpuscular Hemoglobin 34.3 pg (25-34); Mean Corpuscular Hgb Conc 33.3 g/dL (32-36); Mean Platelet Volume 9.4 fL (7.4-10.4); Platelet Count 306 K/uL (130-400); RDW Coefficient of Variation 15.4 % (11.5-14.5); RDW Standard Deviation 57.3 fL (36.4-46.3); Red Blood Count 3.96 M/uL (4.2-5.4); White Blood Count 11.06 K/uL (4.8-10.8)
[2018-12-08] MEDS: ATENOLOL 50 MG TABLET PO SCH (06:35)
[2018-12-08] MEDS: ALBUT/IPRATROP 3MG/0.5MG NEB 3 ML VIAL NEB SCH ×4 (06:58→18:58)
[2018-12-08] MEDS: BUDESONIDE 0.5 MG/2 ML VIAL (PULMICORT) NEB SCH ×2 (06:58→18:58)
[2018-12-08 07:03] LABS: BUN Creatinine Ratio 23.7 (10-20); Calcium 8.8 mg/dl (8.5-10.1); Creatinine Clr Calc Pharmacy 50.1 ml/min; Est GFR (Non-African American) 64.7; Potassium 3.3 mmol/L (3.5-5.1)
--- NOTE | 2018-12-08 08:27 | Hospitalist Progress Note ---
Date of Service December 08, 2018 Assessment & Plan (1) Pneumonia: CXR with bilateral opacities and small effusions MRSA swab negative - continue ceftriaxone and azithromycin Pulmicort Respules 0.5 mg inhaled twice daily. Guaifenesin extended release 600 mg p.o. twice daily Duo nebs 4 times daily and every 2 hours as needed. Sputum Gram growing staph (2) Weakness: Secondary to pneumonia and aggravation of underlying medical issues. May require PT/OT assessment prior to discharge. (3) A-fib: Atrial fibrillation/flutter, hypertension - Continue atenolol and lisinopril with hold parameters. Continue warfarin - INR will be monitored daily, watch for interaction with azithromycin (4) Rheumatoid arthritis: Her usual immunosuppressive medications of Remicade and methotrexate will need to be held during current illness. She is on prednisone 5 mg p.o. daily, will place her on stress dose hydrocortisone 5 mg IV every 8 hours for 24 hours (5) Hyperlipidemia: Continue simvastatin 20 mg daily (6) GERD (gastroesophageal reflux disease): Change pantoprazole from 20 to 40 mg daily (7) Hypertension: See above (8) DVT prophylaxis: Warfarin Dispo: transfer to medical, PT/OT evals Subjective Ms. Mercedes is pleasant and conversant but quite confused and much of her answers to questions do not make sense. She appears comfortable. Denies any discomfort Review of Systems Review of Systems: All systems reviewed & are unremarkable except as noted in HPI & below Physical Exam Physical Exam: General: no distress Eyes: normal inspection, PERLL Respiratory: chest non tender, clear to auscultation, normal breath sounds, no respiratory distress, no accessory muscle use Cardiac: regular rate and rhythm, no rub or gallop, no murmur, no edema, no jvd GI/: active bowel sounds, no abd pain or tenderness, soft, non distended Extremities: normal range of motion, normal strength, non tender Neuro/Psych: alert and oriented x 3, normal mood and affect Skin: normal color, dry Results & Data Vital Signs (Past 12 Hours) Vital Signs Temp Pulse Resp BP BP Pulse Ox 12/08/18 06:58 103 H 18 91 12/08/18 05:17 154/74 H 12/08/18 04:55 36.3 C L 83 19 190/106 H 94 12/08/18 00:36 36.7 C 83 20 153/79 H 92 12/07/18 22:00 146/77 H PG Care Time/CCT Total # of Minutes Spent Total Time Spent with Patient: Total time spent is greater than 50% in coordination of care (as documented) at patient's floor/unit and/or counseling patient: (1) Pneumonia Laterality: right Lung location: lower lobe of lung Pneumonia type: due to unspecified organism Qualified Code(s): J18.1 - Lobar pneumonia, unspecified organism
[2018-12-08] MEDS ORDERED: POTASSIUM CHLORIDE 20 MEQ TABCR PO ONE (08:30)
[2018-12-08] MEDS: LACTOBACILLUS ACIDOPHILUS (FLORANEX) TAB PO SCH (08:32)
[2018-12-08] MEDS: PANTOprazole 40 MG TAB PO SCH (08:32)
[2018-12-08] MEDS: LISINOPRIL 20 MG TAB PO SCH (08:32)
[2018-12-08] MEDS: FOLIC ACID 1 MG TAB PO SCH (08:32)
[2018-12-08] MEDS: guaiFENesin 600 MG TABCR PO SCH ×2 (08:32→20:55)
[2018-12-08] MEDS: FLUTICASONE PROPIONATE NA SPR 16 GM BTL SCH (08:32)
[2018-12-08] MEDS: predniSONE 5 MG TAB PO SCH (08:32)
[2018-12-08] MEDS: WARFARIN SOD 2 MG TAB PO SCH (18:28)
[2018-12-08] MEDS: clonazePAM 0.5 MG TAB PO SCH (20:55)
[2018-12-08] MEDS: SIMVASTATIN 20 MG TAB PO SCH (20:55)
[2018-12-09] MEDS: ACETAMINOPHEN 325 MG TAB PO PRN ×4 (01:47→19:57)
[2018-12-09] MEDS: cefTRIAXone SODIUM 1,000 MG in DEXTROSE 5% 50 ML IV SCH (05:54)
[2018-12-09] MEDS: AZITHROMYCIN 500 MG in DEXTROSE 5% 250 ML IV SCH (06:31)
[2018-12-09 06:33] LABS: Hematocrit (blood only) 40.5 % (37-47); Hemoglobin 13.8 g/dL (12.0-16.0); Mean Corpuscular Hemoglobin 34.3 pg (25-34); Mean Corpuscular Hgb Conc 34.1 g/dL (32-36); Mean Corpuscular Volume 100.7 fL (80-100); Mean Platelet Volume 9.4 fL (7.4-10.4); Platelet Count 311 K/uL (130-400); RDW Coefficient of Variation 15.6 % (11.5-14.5); RDW Standard Deviation 56.7 fL (36.4-46.3); Red Blood Count 4.02 M/uL (4.2-5.4); White Blood Count 15.73 K/uL (4.8-10.8)
[2018-12-09 06:42] LABS: INR 3.2 (0.9-1.1); Prothrombin Time 30.1 Seconds (9.0-12.0)
[2018-12-09 07:11] LABS: BUN Creatinine Ratio 30.2 (10-20); Calcium 8.6 mg/dl (8.5-10.1); Creatinine Clr Calc Pharmacy 51.9 ml/min; Est GFR (African American) 78.2; Est GFR (Non-African American) 67.5; Potassium 3.6 mmol/L (3.5-5.1)
[2018-12-09] MEDS: ALBUT/IPRATROP 3MG/0.5MG NEB 3 ML VIAL NEB SCH ×4 (07:21→19:14)
[2018-12-09] MEDS: BUDESONIDE 0.5 MG/2 ML VIAL (PULMICORT) NEB SCH ×2 (07:21→19:14)
[2018-12-09] MEDS: guaiFENesin 600 MG TABCR PO SCH ×2 (07:43→20:01)
[2018-12-09] MEDS: predniSONE 5 MG TAB PO SCH (07:43)
[2018-12-09] MEDS: LACTOBACILLUS ACIDOPHILUS (FLORANEX) TAB PO SCH (07:43)
[2018-12-09] MEDS: LISINOPRIL 20 MG TAB PO SCH (07:43)
[2018-12-09] MEDS: FOLIC ACID 1 MG TAB PO SCH (07:43)
[2018-12-09] MEDS: ATENOLOL 50 MG TABLET PO SCH (07:44)
[2018-12-09] MEDS: PANTOprazole 40 MG TAB PO SCH (07:44)
[2018-12-09] MEDS: FLUTICASONE PROPIONATE NA SPR 16 GM BTL SCH (07:44)
--- NOTE | 2018-12-09 12:17 | Discharge Summary ---
Date of Service December 09, 2018 Admission HPI Per Admitting Provider The patient is a 78-year-old female who presents to the emergency department with the above complaints. She is immunocompromised, taking methotrexate and Remicade on a scheduled basis. Principal Diagnosis Pneumonia Discharge Exam Constitutional WD/WN, vitals as above Respiratory normal respiratory effort, lungs clear to auscultation Cardiovascular Rate/Rhythm: + abnormal rate Heart Sounds: normal S1 and normal S2 Extremities: no edema Gastrointestinal (Abdomen) Inspection/Auscultation: abdomen normal to inspection and normal bowel sounds; abdomen not distended Percussion/Palpation: abdomen soft; abdomen nontender Musculoskeletal no cyanosis or clubbing, extremities motor strength 5/5 Skin no rashes, warm and dry Neurologic moves all extremities and awake Psychiatric A+Ox3, euthymic affect Discharge Data Allergies Allergy/AdvReac Type Severity Reaction Status Date / Time amoxicillin Allergy Severe HIVES Verified 12/07/18 05:03 clavulanic acid Allergy Severe HIVES Verified 12/07/18 05:03 prochlorperazine Allergy Unknown FAINTING Verified 12/07/18 05:03 Consultations 12/07/18 05:27 ED Decision to Admit Stat 12/07/18 08:02 Consult Case Management - Discharge Planning Routine Hospital Course (1) Pneumonia: CXR with bilateral opacities and small effusions MRSA swab negative - IV ceftriaxone and azithromycin 500 mg x 3 days inpatient, will change to po cefuroxime outpatient - will give total of five days antibiotics Pulmicort Respules 0.5 mg inhaled twice daily. Guaifenesin extended release 600 mg p.o. twice daily provided Duo nebs 4 times daily and every 2 hours as needed. Sputum Gram growing figueroa sensitive staph Ms. Mercedes did have an increase in her WBCs this morning however this is likely secondary to steroid stress dosing as she is otherwise improving (2) Weakness: Secondary to pneumonia and aggravation of underlying medical issues. PT/OT evals felt she is at her baseline mobility (3) A-fib: Atrial fibrillation/flutter, hypertension - Continue atenolol and lisinopril with hold parameters. Continue warfarin - INR 3.2 - will hold tonight and resume tomorrow. INR on M onday (4) Rheumatoid arthritis: Her usual immunosuppressive medications of Remicade and methotrexate will need to be held during current illness. She is on prednisone 5 mg p.o. daily, will place her on stress dose hydrocortisone 5 mg IV every 8 hours for 24 hours (5) Hyperlipidemia: Continue simvastatin 20 mg daily (6) GERD (gastroesophageal reflux disease): Change pantoprazole from 20 to 40 mg daily (7) Hypertension: See above (8) DVT prophylaxis: Warfarin Dispo: PT/OT recommending home with family Total Time Total Time Spent Total Time Spent (In Minutes): greater than 30 minutes Discharge Plan Discharge Items Patient Disposition: Home - Self-Care Reason For Visit: PNEUMONIA Discharge Diagnosis: pneumonia Condition: Fair Discharge Goals: Decrease discomfort Activity: Resume your previous activity Non-emergency contact: Primary Care Provider Call non-emergency contact if: you have any medication questions Follow-up/Referrals: Laisha Martins CRNP [Primary Care Provider] - Diet: Regular Other Ambulatory Orders: Prothrombin Time INR (Routine) Timeframe: [id number] Location: Determined by Patient Ordered By: Glenis Li [facility] Provider Instructions: Please see your primary care provider in about a week. You will need to hold your warfarin for today for an INR of 3.2 and resume tomorrow. Please have an INR drawn on Tuesday. Results will go to your primary care provider. Please follow up with them concerning Tuesday dosing. Please hold off on receiving methotrexate or remicade until you are finished your course of antibiotics. Prescriptions: New cefuroxime axetil 500 mg tablet 500 mg PO BID Qty: 5 RF: 0 Continued pantoprazole 20 mg Tablet,Delayed Release (Dr/Ec) 20 mg PO DAILY RF: 0 Probiotic Product 1 cap PO DAILY RF: 0 acetaminophen [Tylenol Extra Strength] 500 mg Tablet 500 mg PO QID PRN (Reason: Pain) RF: 0 prednisone 5 mg Tablet 5 mg PO DAILY RF: 0 folic acid 1 mg Tablet 1 mg PO DIRECTED RF: 0 Methotrexare 15 mg PO WK RF: 0 simvastatin 20 mg Tablet 20 mg PO PM RF: 0 lisinopril 20 mg Tablet 20 mg PO DAILY RF: 0 atenolol 50 mg Tablet 50 mg PO DAILY RF: 0 sennosides-docusate sodium [Senna Plus] 8.6-50 mg Tablet 1 tab PO HS PRN (Reason: Constipation) RF: 0 clonazepam 0.5 mg Tablet 0.5 mg PO HS RF: 0 warfarin [Coumadin] 2 mg Tablet 2 mg PO DAILY RF: 0 Remicade 100 mg Recon Soln 100 mg IV DIRECTED RF: 0 valacyclovir [Valtrex] 1 gram Tablet 1,000 mg PO DAILY RF: 0 fluticasone propionate [Flonase Allergy Relief] 50 mcg/actuation [place],Suspension 1 spray INTRANASAL DAILY RF: 0 nitrofurantoin macrocrystal 100 mg Capsule 100 mg PO DIRECTED RF: 0 Stand-Alone Forms: [facility] Admission Data Admit Date/Time: 12/07/18 06:36 Attending Provider: Rogelio Mercedes Admit Provider: Lemuel Alfaro Primary Care Provider: Laisha Martins Other Providers: Rogelio Mercedes ; Lemuel Alfaro Service: Medical
--- NOTE | 2018-12-09 14:53 | XRay Report ---
XR chest 1V portable CLINICAL HISTORY: pneumonia COMPARISON STUDY: 12/07/2018 FINDINGS: The heart appears mildly enlarged. There is a large hiatal hernia which contains colon. The re are bilateral interstitial pulmonary opacities, likely representing congestive failure superimpose d on chronic lung disease. A bilateral interstitial infectious processes could appear similar.[There are advanced arthritic changes within the shoulders. IMPRESSION: 1. Persistent bilateral diffuse interstitial thickening, likely secondary to congestive failure super imposed on chronic lung disease 2. Large hiatal hernia containing a portion of colon Electronically signed by: Sharad Oliver M.D. 12/09/2018 2:52 PM
[2018-12-09] MEDS ORDERED: FUROSEMIDE 40 MG in SYRINGE 0 ML IV ONE (15:30)
--- NOTE | 2018-12-09 15:40 | Hospitalist Progress Note ---
Date of Service December 09, 2018 Assessment & Plan (1) Pneumonia: CXR with bilateral opacities and small effusions, repeat cxr with persistent congestion. Unknown if she has a history of CHF Will give 40 mg IV lasix now and 40 mg in the morning MRSA swab negative - IV ceftriaxone and azithromycin 500 mg x 3 days inpatient, will change to po cefuroxime will give total of 6 days antibiotics Pulmicort Respules 0.5 mg inhaled twice daily. Guaifenesin extended release 600 mg p.o. twice daily provided Duo nebs 4 times daily and every 2 hours as needed. Sputum Gram growing figueroa sensitive staph Ms. Mercedes did have an increase in her WBCs this morning however this is likely secondary to steroid stress dosing as she is otherwise improving (2) Weakness: Secondary to pneumonia and aggravation of underlying medical issues. PT/OT evals felt she is at her baseline mobility (3) A-fib: Atrial fibrillation/flutter, hypertension - Continue atenolol and lisinopril with hold parameters. Continue warfarin - INR 3.2 - will hold tonight and resume tomorrow. INR on Tuesday (4) Rheumatoid arthritis: Her usual immunosuppressive medications of Remicade and methotrexate will need to be held during current illness. She is on prednisone 5 mg p.o. daily, will place her on stress dose hydrocortisone 5 mg IV every 8 hours for 24 hours (5) Hyperlipidemia: Continue simvastatin 20 mg daily (6) GERD (gastroesophageal reflux disease): Change pantoprazole from 20 to 40 mg daily (7) Hypertension: See above (8) DVT prophylaxis: Warfarin Dispo: PT/OT recommending home with family, likely will discharge home tomorrow Subjective Ms. Mercedes is feeling better, up to a chair, hard to have much of a sensible conversation with due to confusion. updated at bedside. Review of Systems Review of Systems: All systems reviewed & are unremarkable except as noted in HPI & below Physical Exam Physical Exam: General: no distress Eyes: normal inspection, PERLL Respiratory: chest non tender, clear to auscultation, normal breath sounds, no respiratory distress, no accessory muscle use Cardiac: regular rate and rhythm, no rub or gallop, no murmur, no edema, no jvd GI/: active bowel sounds, no abd pain or tenderness, soft, non distended Extremities: normal range of motion, normal strength, non tender Neuro/Psych: alert and oriented x 2 with confusion, normal mood and affect Skin: normal color, dry Results & Data Vital Signs (Past 12 Hours) Vital Signs Temp Pulse Resp BP BP Pulse Ox 12/09/18 15:21 62 16 96 12/09/18 14:59 36.7 C 60 16 176/91 H 93 12/09/18 11:11 76 18 94 12/09/18 08:40 153/84 H 12/09/18 07:32 36.7 C 68 18 147/105 H 95 12/09/18 07:21 63 18 97 PG Care Time/CCT Total # of Minutes Spent Total Time Spent with Patient: Total time spent is greater than 50% in coordination of care (as documented) at patient's floor/unit and/or counseling patient: (1) Pneumonia Laterality: right Lung location: lower lobe of lung Pneumonia type: due to unspecified organism Qualified Code(s): J18.1 - Lobar pneumonia, unspecified organism
[2018-12-09] MEDS: SIMVASTATIN 20 MG TAB PO SCH (20:01)
[2018-12-09] MEDS: cefUROXime axetil 500 MG TAB PO SCH (20:01)
[2018-12-09] MEDS: clonazePAM 0.5 MG TAB PO SCH (20:01)
[2018-12-10 01:35] LABS: Basophils # (auto) 0.04 K/uL (0-0.2); Basophils % (auto) 0.2 %; Eosinophils # (auto) 0.56 K/uL (0-0.5); Eosinophils % (auto) 3.4 %; Hemoglobin 13.5 g/dL (12.0-16.0); Immature Granulocytes # (auto) 0.14 K/uL (0.00-0.02); Immature Granulocytes % (auto) 0.8 %; Lymphocytes # (auto) 3.36 K/uL (1.2-3.4); Lymphocytes % (auto) 20.3 %; Mean Corpuscular Hemoglobin 33.8 pg (25-34); Mean Corpuscular Volume 100.3 fL (80-100); Mean Platelet Volume 8.9 fL (7.4-10.4); Monocytes # (auto) 1.67 K/uL (0.11-0.59); Monocytes % (auto) 10.1 %; Neutrophils # (auto) 10.79 K/uL (1.4-6.5); Neutrophils % (auto) 65.2 %; Platelet Count 297 K/uL (130-400); RDW Coefficient of Variation 15.6 % (11.5-14.5); RDW Standard Deviation 56.1 fL (36.4-46.3); Red Blood Count 3.99 M/uL (4.2-5.4); White Blood Count 16.56 K/uL (4.8-10.8)
[2018-12-10 01:40] LABS: Mean Corpuscular Hgb Conc 33.8 g/dL (32-36)
[2018-12-10 01:51] LABS: BUN Creatinine Ratio 30.4 (10-20); Calcium 7.9 mg/dl (8.5-10.1); Creatinine Clr Calc Pharmacy 57.4 ml/min; Est GFR (African American) 88.3; Est GFR (Non-African American) 76.2; Magnesium 2.1 mg/dl (1.8-2.4); Potassium 3.7 mmol/L (3.5-5.1)
[2018-12-10] MEDS ORDERED: ALBUMIN 25% 50 ML with FUROSEMIDE 40 MG IV ONE (02:16)
[2018-12-10] MEDS: ALBUT/IPRATROP 3MG/0.5MG NEB 3 ML VIAL NEB SCH ×4 (07:38→19:10)
[2018-12-10] MEDS: PANTOprazole 40 MG TAB PO SCH (08:28)
[2018-12-10] MEDS: LACTOBACILLUS ACIDOPHILUS (FLORANEX) TAB PO SCH (08:28)
[2018-12-10] MEDS: predniSONE 5 MG TAB PO SCH (08:28)
[2018-12-10] MEDS: FOLIC ACID 1 MG TAB PO SCH (08:29)
[2018-12-10] MEDS: LISINOPRIL 20 MG TAB PO SCH (08:29)
[2018-12-10] MEDS: FLUTICASONE PROPIONATE NA SPR 16 GM BTL SCH (08:29)
[2018-12-10] MEDS: ATENOLOL 50 MG TABLET PO SCH (08:29)
[2018-12-10] MEDS: guaiFENesin 600 MG TABCR PO SCH ×2 (08:29→20:28)
[2018-12-10] MEDS: cefUROXime axetil 500 MG TAB PO SCH ×2 (08:29→20:28)
[2018-12-10] MEDS ORDERED: FUROSEMIDE 40 MG in SYRINGE 0 ML IV ONE (09:00)
[2018-12-10 09:11] LABS: Hematocrit (blood only) 42.1 % (37-47); Hemoglobin 14.2 g/dL (12.0-16.0); Mean Corpuscular Hgb Conc 33.7 g/dL (32-36); Mean Corpuscular Volume 100.7 fL (80-100); Mean Platelet Volume 9.4 fL (7.4-10.4); Platelet Count 300 K/uL (130-400); RDW Coefficient of Variation 15.8 % (11.5-14.5); RDW Standard Deviation 56.8 fL (36.4-46.3); Red Blood Count 4.18 M/uL (4.2-5.4); White Blood Count 15.14 K/uL (4.8-10.8)
[2018-12-10 09:29] LABS: INR 3.8 (0.9-1.1)
[2018-12-10 09:46] LABS: Calcium 8.7 mg/dl (8.5-10.1); Creatinine Clr Calc Pharmacy 55.2 ml/min; Est GFR (African American) 84.3; Est GFR (Non-African American) 72.7; Potassium 3.1 mmol/L (3.5-5.1)
--- NOTE | 2018-12-10 10:54 | Hospitalist Progress Note ---
Date of Service December 10, 2018 Assessment & Plan (1) Pneumonia: CXR with bilateral opacities and small effusions on admission, repeat cxr with persistent congestion. Unknown if she has a history of CHF, I don't see any echos in the record. She does appear to have some chronic lung disease on imaging 40 mg IV lasix given last evening. With the increase in respiratory and heart rate this morning, will give another 40 mg IV this morning cautiously - her mucous membranes do appear a bit dry, kidney function is stable but CXR over night did show congestion MRSA swab negative - cefuroxime and azithromycin Pulmicort Respules 0.5 mg inhaled twice daily. Guaifenesin extended release 600 mg p.o. twice daily provided Duo nebs 4 times daily and every 2 hours as needed. Sputum Gram growing figueroa sensitive staph WBCs continue to rise - will continue with cefuroxime and azithromycin at this time (2) A-fib: Atrial fibrillation/flutter, hypertension - Elevation in rate morning 12/10 1teens to 120s Continue atenolol and lisinopril, will add IV metoprolol prn for HR > 120. Continue warfarin - INR 3.8 - will hold warfarin and recheck am - interaction with azithromycin likely prolonging INR (3) Urinary retention: likely contributed to episode of tachypnea and tachycardia 12/10 Bladder scanned for 500 ml Rosa placed (4) Weakness: Secondary to pneumonia and aggravation of underlying medical issues. PT/OT duarteals felt she is at her baseline mobility (5) Rheumatoid arthritis: Her usual immunosuppressive medications of Remicade and methotrexate will need to be held during current illness. She is on prednisone 5 mg p.o. daily, will place her on stress dose hydrocortisone 5 mg IV every 8 hours for 24 hours (6) Hyperlipidemia: Continue simvastatin 20 mg daily (7) GERD (gastroesophageal reflux disease): Change pantoprazole from 20 to 40 mg daily (8) Hypertension: See above (9) DVT prophylaxis: Warfarin Dispo: PT/OT recommending home with family when ready to discharge Subjective Ms. Mercedes was tachypneic tachycardic this morning. She had an episode of hypoxia over the night. Review of Systems Review of Systems: All systems reviewed & are unremarkable except as noted in HPI & below Physical Exam Physical Exam: General: no distress Eyes: normal inspection, PERLL Respiratory: chest non tender, crackles right base to auscultation, normal b reath sounds, tachypneic Cardiac: regular rate and rhythm, no rub or gallop, no murmur, no edema, GI/: active bowel sounds, no abd pain or tenderness, soft, non distended Extremities: normal range of motion, normal strength, non tender Neuro/Psych: alert and oriented to self, anxious Skin: pale, dry Results & Data Vital Signs (Past 12 Hours) Vital Signs Temp Pulse Resp BP BP Pulse Ox 12/10/18 07:57 36.8 C 124 H 36 H 147/93 H 96 12/10/18 07:51 36.8 C 12/10/18 07:20 37.2 C 75 20 109/68 93 12/10/18 03:18 37.2 C 71 41 H 127/77 94 12/10/18 01:00 143 H 42 H 116/80 90 12/09/18 23:51 36.4 C L 87 18 165/88 H 90 PG Care Time/CCT Total # of Minutes Spent Total Time Spent with Patient: Total time spent is greater than 50% in coordination of care (as documented) at patient's floor/unit and/or counseling patient: (1) Pneumonia Laterality: right Lung location: lower lobe of lung Pneumonia type: due to unspecified organism Qualified Code(s): J18.1 - Lobar pneumonia, unspecified organism
[2018-12-10] MEDS ORDERED: METOPROLOL TARTRATE 1 MG/ML VIAL IV PRN (11:01)
[2018-12-10] MEDS: AZITHROMYCIN 500 MG in DEXTROSE 5% 250 ML IV SCH (11:08)
[2018-12-10] MEDS: BUDESONIDE 0.5 MG/2 ML VIAL (PULMICORT) NEB SCH ×2 (11:27→19:10)
--- NOTE | 2018-12-10 13:33 | XRay Report ---
SINGLE VIEW CHEST CLINICAL HISTORY: Fluid overload. FINDINGS: An AP, portable, upright chest radiograph is compared to study dated 12/09/2018. The examinat ion is significantly degraded by portable technique and patient rotation. The heart is top normal in size and there is atherosclerotic calcification of the thoracic aorta. There is a large hiatal herni a at the left lung base. There is evidence of congestive failure/fluid overload. Small pleural effusi ons are noted with bibasilar consolidation. No pneumothorax is seen. The skeletal structures are oste openic. The bony thorax is grossly intact. Advanced degenerative change and deformity is present in t he shoulders. Advanced spondylosis and scoliosis is seen in the thoracic spine. IMPRESSION: 1. There is evidence of fluid overload/congestive failure. This has modestly worsened as compared to yesterday. 2. Small pleural effusions with bibasilar consolidation. Correlate clinically for evidence of superim posed pneumonia. 3. A large hiatal hernia is seen at the left lung base. Electronically signed by: Haider Garnica M.D. 12/10/2018 1:32 PM
[2018-12-10] MEDS ORDERED: SIMETHICONE 80 MG CHEW PO PRN (16:40)
[2018-12-10] MEDS: ACETAMINOPHEN 325 MG TAB PO PRN (18:14)
[2018-12-10] MEDS: clonazePAM 0.5 MG TAB PO SCH (20:28)
[2018-12-10] MEDS: SIMVASTATIN 20 MG TAB PO SCH (20:28)
[2018-12-10] MEDS ORDERED: POTASSIUM CHLORIDE 20 MEQ TABCR PO STA (23:48)
[2018-12-11] MEDS: POTASSIUM CHLORIDE / WTR 10 MEQ/100 ML PLCT IV SCH ×2 (00:55→01:51)
[2018-12-11] MEDS: BUDESONIDE 0.5 MG/2 ML VIAL (PULMICORT) NEB SCH ×2 (07:12→19:30)
[2018-12-11] MEDS: ALBUT/IPRATROP 3MG/0.5MG NEB 3 ML VIAL NEB SCH ×4 (07:12→19:30)
[2018-12-11] MEDS: cefUROXime axetil 500 MG TAB PO SCH ×2 (07:51→20:58)
[2018-12-11] MEDS: predniSONE 5 MG TAB PO SCH (07:52)
[2018-12-11] MEDS: PANTOprazole 40 MG TAB PO SCH (07:52)
[2018-12-11] MEDS: ATENOLOL 50 MG TABLET PO SCH (07:52)
[2018-12-11] MEDS: guaiFENesin 600 MG TABCR PO SCH ×2 (07:52→20:58)
[2018-12-11] MEDS: LISINOPRIL 20 MG TAB PO SCH (07:52)
[2018-12-11] MEDS: POTASSIUM CHLORIDE 20 MEQ TABCR PO SCH (07:52)
[2018-12-11] MEDS: LACTOBACILLUS ACIDOPHILUS (FLORANEX) TAB PO SCH (07:52)
[2018-12-11 07:58] LABS: Hematocrit (blood only) 38.8 % (37-47); Hemoglobin 13.1 g/dL (12.0-16.0); Mean Corpuscular Hemoglobin 33.9 pg (25-34); Mean Corpuscular Hgb Conc 33.8 g/dL (32-36); Mean Corpuscular Volume 100.3 fL (80-100); Mean Platelet Volume 9.5 fL (7.4-10.4); Platelet Count 308 K/uL (130-400); RDW Coefficient of Variation 15.7 % (11.5-14.5); RDW Standard Deviation 56.4 fL (36.4-46.3); Red Blood Count 3.87 M/uL (4.2-5.4); White Blood Count 17.51 K/uL (4.8-10.8)
[2018-12-11 08:07] LABS: INR 2.5 (0.9-1.1); Prothrombin Time 23.9 Seconds (9.0-12.0)
[2018-12-11] MEDS: FLUTICASONE PROPIONATE NA SPR 16 GM BTL SCH (08:16)
[2018-12-11] MEDS: AZITHROMYCIN 500 MG in DEXTROSE 5% 250 ML IV SCH (08:16)
[2018-12-11 09:35] LABS: Calcium 8.3 mg/dl (8.5-10.1); Creatinine Clr Calc Pharmacy 46.4 ml/min; Est GFR (African American) 68.3; Est GFR (Non-African American) 58.9; Magnesium 2.2 mg/dl (1.8-2.4); Potassium 4.3 mmol/L (3.5-5.1)
--- NOTE | 2018-12-11 14:38 | Hospitalist Progress Note ---
Date of Service December 11, 2018 Assessment & Plan (1) Pneumonia: - CXR concerning for opacities on admission; follow up CXR showed congestion. Does appear to have chronic lung disease. - MRSA swab negative; Sputum culture +MSSA. - Continue Cefuroxime but can dc azithro - Pulmicort BID, Duoneb QID, Mucinex 600 BID scheduled. - WBC continues to trend up -- may be related to stress dose IV steroids on admission. Will continue to monitor. (2) Acute on chronic diastolic HF (heart failure): - CXR was concerning for pulm congestion. - Echo showed preserved EF, mild mitral regurgitation. - Received Lasix 40 mg IV over last 2 days; will hold further doses and monitor daily. - Monitor net I/O's and daily weights. - Continue ACEI as prescribed. (3) A-fib: - Converts between NSR and A. fib throughout day on monitor, rate controlled for the majority of the time. - Continue Atenolol as prescribed. - INR now within therapeutic range at 2.5 - will resume 2 mg PO daily. (4) Urinary retention: - Rosa was placed for urinary retention of 500 cc. - Will continue to monitor -- consider voiding trial on 12/12. (5) Weakness: - Secondary to infection and overall deconditioning. - PT/OT -- pt. is at functional baseline. Will be discharged with home health. (6) Leukocytosis: - WBC continues to trend up -- could be related to IV stress dose steroids on day of admission. - Trend CBC daily. (7) Rheumatoid arthritis: - Hold home Remicade and Methotrexate in setting of acute illness. - Continue Prednisone 5 mg PO daily. (8) Hyperlipidemia: - Continue simvastatin 20 mg daily. (9) Hypertension: - Continue Atenolol 50 mg daily, Lisinopril 20 mg daily as prescribed. (10) HLD (hyperlipidemia): - Continue statin as prescribed. (11) Mitral regurgitation: - Mild mitral regurg noted on TTE. (12) Dementia: - Her reports patient has slowly declined over last few years. - He is her primary intensive care nurse at home along with home health aides. - Mental status is currently at baseline. (13) GERD (gastroesophageal reflux disease): - PPI daily. (14) DVT prophylaxis: - Warfarin. Dispo: Discharge to home with home health likely over next 48 hours pending improvement in leukocytosis. Supervising Physician Co-Signing Physician Notes PA Supervision Note: I did not personally see or examine the patient today, but I verified all vidales points of ESPERANZA Stanton's assessment and plan with the following exceptions/additions: None Subjective Pt. is doing well overall -- limited review of systems obtained due to dementia. Her is present at bedside. Respiratory issues improved, denies shortness of breath or chest pain. WBC continues to trend up, could be possibly related to stress dose steroids on admission. Plan to monitor over next 24 hours. Review of Systems Review of Systems: All systems reviewed & are unremarkable except as noted in HPI & below and Other (limited due to dementia) Constitutional: + fatigue and + weakness; no fever and no chills Respiratory: no cough, no dyspnea and no dyspnea on exertion Cardiovascular: no chest pain and no edema Gastrointestinal: no abdominal pain, no nausea and no constipation Genitourinary: + difficulty urinating Musculoskeletal: no back pain and no joint pain Physical Exam Physical Exam: General: Resting comfortably HEENT: NC/AT; PERRLA with EOMI; [place] conjunctiva, MMM. No erythema of posterior pharynx Neck: Supple and nontender Cardiac: RRR Lungs: CTA bilaterally Abdomen: Bowel normoactive X 4; Nontender to palpation Extremities: Warm. No edema present Neuro: No focal weakness; is not alert to person or place. Skin: No rash Results & Data Vital Signs (Past 12 Hours) Vital Signs Temp Pulse Resp BP BP Pulse Ox 12/11/18 12:08 36.6 C 77 18 106/70 92 12/11/18 07:13 67 18 90 12/11/18 07:02 36.5 C 64 17 153/83 H 92 Laboratory Results 12/11/18 12/11/18 12/11/18 Range/Units 07:21 07:21 07:21 WBC 17.51 H (4.8-10.8) K/uL RBC 3.87 L (4.2-5.4) M/uL Hgb 13.1 (12.0-16.0) g/dL Hct 38.8 (37-47) % MCV 100.3 H (80-100) fL MCH 33.9 (25-34) pg MCHC 33.8 (32-36) g/dL RDW Std Deviation 56.4 H (36.4-46.3) fL RDW Coeff of Juliet 15.7 H (11.5-14.5) % Plt Count 308 (130-400) K/uL MPV 9.5 (7.4-10.4) fL PT 23.9 H (9.0-12.0) Seconds INR 2.5 H (0.9-1.1) Sodium 131 L (136-145) mmol/L Potassium 4.3 D (3.5-5.1) mmol/L Chloride 97 L (98-107) mmol/L Carbon Dioxide 23 (21-32) mmol/L Anion Gap 11.0 (3-11) BUN 33 H (7-18) mg/dl Creatinine 0.94 (0.6-1.2) mg/dl Est Cr Clr Drug Dosing 46.4 ml/min Est GFR ( Amer) 68.3 Est GFR (Non-Af Amer) 58.9 BUN/Creatinine Ratio 35.0 H (10-20) Glucose 81 (70-99) mg/dl Calcium 8.3 L (8.5-10.1) mg/dl Magnesium 2.2 (1.8-2.4) mg/dl PG Care Time/CCT Total # of Minutes Spent Total Time Spent with Patient: Total time spent is greater than 50% in coordination of care (as documented) at patient's floor/unit and/or counseling patient: (1) Pneumonia Laterality: right Lung location: lower lobe of lung Pneumonia type: due to unspecified organism Qualified Code(s): J18.1 - Lobar pneumonia, unspecified or ganism
[2018-12-11] MEDS ORDERED: EUCERIN CR 120 GM JAR EXT PRN (14:39)
[2018-12-11] MEDS: SIMETHICONE 80 MG CHEW PO SCH ×2 (17:02→20:58)
[2018-12-11] MEDS: clonazePAM 0.5 MG TAB PO SCH (20:58)
[2018-12-11] MEDS: SIMVASTATIN 20 MG TAB PO SCH (20:59)
[2018-12-11] MEDS ORDERED: WARFARIN SOD 2 MG TAB PO STA (21:28)
[2018-12-12] MEDS: BUDESONIDE 0.5 MG/2 ML VIAL (PULMICORT) NEB SCH (07:17)
[2018-12-12] MEDS: ALBUT/IPRATROP 3MG/0.5MG NEB 3 ML VIAL NEB SCH ×3 (07:17→15:22)
[2018-12-12 07:44] LABS: Hematocrit (blood only) 38.9 % (37-47); Hemoglobin 13.1 g/dL (12.0-16.0); Mean Corpuscular Hemoglobin 33.8 pg (25-34); Mean Corpuscular Hgb Conc 33.7 g/dL (32-36); Mean Corpuscular Volume 100.3 fL (80-100); Mean Platelet Volume 9.2 fL (7.4-10.4); Platelet Count 354 K/uL (130-400); RDW Coefficient of Variation 15.6 % (11.5-14.5); RDW Standard Deviation 56.4 fL (36.4-46.3); Red Blood Count 3.88 M/uL (4.2-5.4)
[2018-12-12 07:52] LABS: INR 2.8 (0.9-1.1); Prothrombin Time 26.6 Seconds (9.0-12.0)
[2018-12-12] MEDS: PANTOprazole 40 MG TAB PO SCH (07:55)
[2018-12-12] MEDS: guaiFENesin 600 MG TABCR PO SCH (07:55)
[2018-12-12] MEDS: LACTOBACILLUS ACIDOPHILUS (FLORANEX) TAB PO SCH (07:55)
[2018-12-12] MEDS: SIMETHICONE 80 MG CHEW PO SCH ×2 (07:56→13:24)
[2018-12-12] MEDS: FLUTICASONE PROPIONATE NA SPR 16 GM BTL SCH (07:56)
[2018-12-12] MEDS: LISINOPRIL 20 MG TAB PO SCH (07:56)
[2018-12-12] MEDS: predniSONE 5 MG TAB PO SCH (07:56)
[2018-12-12] MEDS: ATENOLOL 50 MG TABLET PO SCH (07:56)
[2018-12-12] MEDS: cefUROXime axetil 500 MG TAB PO SCH (07:56)
[2018-12-12] MEDS: POTASSIUM CHLORIDE 20 MEQ TABCR PO SCH (07:57)
[2018-12-12 08:20] LABS: BUN Creatinine Ratio 42.3 (10-20); Calcium 8.7 mg/dl (8.5-10.1); Creatinine Clr Calc Pharmacy 59.6 ml/min; Est GFR (African American) 91.2; Est GFR (Non-African American) 78.7; Potassium 4.3 mmol/L (3.5-5.1)
[2018-12-12] MEDS ORDERED: FUROSEMIDE 20 MG in SYRINGE 0 ML IV ONE (09:15)
[2018-12-12] MEDS: ACETAMINOPHEN 325 MG TAB PO PRN (10:40)
--- NOTE | 2018-12-12 15:09 | Discharge Summary ---
Date of Service December 12, 2018 Admission HPI Per Admitting Provider The patient is a 78-year-old female who presents to the emergency department with her , with complaint of worsening cough, chest congestion, fatigue and generalized weakness . She is immunocompromised, taking methotrexate and Remicade on a scheduled basis. Admission Exam Per Admitting Provider The patient is awake, alert and oriented 3, well developed and well nourished, normocephalic and atraumatic, lying in bed and in no acute distress. HEENT--PERRL, EOMI, mucous membranes and oropharynx Neck--supple. No JVD. No bruits. Thyroid normal, trachea midline, no adenopathy. Heart--normal S1 and S2. No murmurs, rubs or gallops. Lungs-- coarse breath sounds bilaterally right greater than left Abdomen--normal bowel sounds and soft. Nontender. Nondistended. Extremities--no cyanosis or clubbing. No edema. There are good distal pulses b/l. Dermatologic--normal skin turgor, normal color, no abnormal lymph nodes, no rash. Neurologic--cranial nerves II through XII grossly intact. Rheumatologic--normal range of motion. Psychiatric--normal affect. Normal. Principal Diagnosis PNA, CHF Discharge Exam General: Resting comfortably HEENT: NC/AT; PERRLA with EOMI; [place] conjunctiva, MMM. No erythema of posterior pharynx Neck: Supple and nontender Cardiac: RRR Lungs: CTA bilaterally Abdomen: Bowel normoactive X 4; Nontender to palpation Extremities: Warm. No edema present Neuro: No focal weakness Skin: No rash Discharge Data Allergies Allergy/AdvReac Type Severity Reaction Status Date / Time amoxicillin Allergy Severe HIVES Verified 12/07/18 05:03 clavulanic acid Allergy Severe HIVES Verified 12/07/18 05:03 prochlorperazine Allergy Unknown FAINTING Verified 12/07/18 05:03 Consultations 12/07/18 05:27 ED Decision to Admit Stat 12/07/18 08:02 Consult Case Management - Discharge Planning Routine Ordered Studies CXR 12/07, 12/09 and 12/10 Hospital Course (1) Pneumonia: CXR concerning for opacities on admission; follow up CXR showed con gestion. Does appear to have chronic lung disease. MRSA swab negative; Sputum culture +MSSA. Received Cefuroxime, will complete 7 day course. Also received Azithromycin, now d/c'ed. Pulmicort BID, Duoneb QID, Mucinex 600 BID scheduled. WBC was trending up -- likely related to IV steroids on admission. WBC now improving. (2) Acute on chronic diastolic HF (heart failure): CXR was concerning for pulm congestion. Echo showed preserved EF, mild mitral regurgitation. Received Lasix IV intermittently over this admission, will not require diuretics at home. Monitored net I/O's and daily weights. Continued ACEI as prescribed. (3) A-fib: Converts between NSR and A. fib throughout day on monitor, rate controlled for the majority of the time. Continued Atenolol as prescribed. INR was therapeutic, will continue 2 mg daily at home. F/u INR this week via home nursing. (4) Urinary retention: Rosa was placed for urinary retention of 500 cc. Catheter removed on 12/12, voided without difficulty. (5) Weakness: Secondary to infection and overall deconditioning. PT/OT -- pt. is at functional baseline. Will be discharged with home health. (6) Leukocytosis: WBC was trending up, likely related to stress dose IV steroids administered over the first 24 hours of admission. (7) Rheumatoid arthritis: Held home Remicade and Methotrexate in setting of acute illness. Can resume following completion of PO abx. Continued Prednisone 5 mg PO daily. (8) Hyperlipidemia: Continued simvastatin 20 mg daily. (9) Hypertension: Continued Atenolol 50 mg daily, Lisinopril 20 mg daily as prescribed. (10) Mitral regurgitation: Mild mitral regurg noted on TTE. (11) Dementia: reports patient has slowly declined over last few years. He is her primary summer child caregiver at home along with home health aides. Mental status is currently at baseline. (12) GERD (gastroesophageal reflux disease): PPI daily. (13) DVT prophylaxis: Warfarin. Stable for discharge to home on 12/12/18. Total Time Total Time Spent Total Time Spent (In Minutes): >30 minutes Total Time Includes: Examination of the Patient, Discharge Planning, Medication Reconciliation, Communication With Other Providers and Other Discharge Plan Discharge Items Patient Disposition: Home - Home Health Services Reason For Visit: PNEUMONIA Condition on Discharge: Fair Activity: As commented below Exercise/Sports: Gradually increase as tolerated Non-emergency contact: Primary Care Provider Follow-up/Referrals: Laisha Martins CRNP [Primary Care Provider] - 12/15/18 4:10 pm (A follow up appt. was made for you with [facility] on at 4:10pm.) Ambulatory Orders: Prothrombin Time INR (Routine) Timeframe: 3 Days Location: Determined by Patient Ordered By: Alaina Hernandez Company Secretary Provider Instructions: 1. Pneumonia * Please take Cefuroxime 500 mg twice daily to complete a 7 day course -- prescription was sent to your pharmacy. * You will need to follow up with PCP in 5-7 days to discuss this hospital admission. 2. Chronic Diastolic Heart Failure * Please monitor daily weights at home. * You will need to call your PCP for weight gain >3-4 pounds over 2-3 day period, increased shortness of breath or lower extremity swelling. 3. Atrial Fibrillation * Please continue Coumadin 2 mg daily as prescribed. * You will need follow up INR levels -- script was provided. Home nursing can collect lab at the house and results will be faxed to [facility]. 4. Home nursing has been arranged for additional support at home following dis charge. 5. Rheumatoid Arthritis * Please continue Prednisone 5 mg daily. * Please hold home Remicade and Methotrexate - you can resume these medications once you complete course of antibiotics. Pending Studies at Discharge: No Stand-Alone Forms: My [facility] Medications and DC Order Prescriptions: New cefuroxime axetil 500 mg tablet 500 mg PO BID Qty: 5 RF: 0 Continued pantoprazole 20 mg Tablet,Delayed Release (Dr/Ec) 20 mg PO DAILY RF: 0 Probiotic Product 1 cap PO DAILY RF: 0 acetaminophen [Tylenol Extra Strength] 500 mg Tablet 500 mg PO QID PRN (Reason: Pain) RF: 0 prednisone 5 mg Tablet 5 mg PO DAILY RF: 0 folic acid 1 mg Tablet 1 mg PO DIRECTED RF: 0 Methotrexare 15 mg PO WK RF: 0 simvastatin 20 mg Tablet 20 mg PO PM RF: 0 lisinopril 20 mg Tablet 20 mg PO DAILY RF: 0 atenolol 50 mg Tablet 50 mg PO DAILY RF: 0 sennosides-docusate sodium [Senna Plus] 8.6-50 mg Tablet 1 tab PO HS PRN (Reason: Constipation) RF: 0 clonazepam 0.5 mg Tablet 0.5 mg PO HS RF: 0 warfarin [Coumadin] 2 mg Tablet 2 mg PO DAILY RF: 0 Remicade 100 mg Recon Soln 100 mg IV DIRECTED RF: 0 fluticasone propionate [Flonase Allergy Relief] 50 mcg/actuation [place],Suspension 1 spray INTRANASAL DAILY RF: 0 Discontinued valacyclovir [Valtrex] 1 gram Tablet 1,000 mg PO DAILY RF: 0 nitrofurantoin macrocrystal 100 mg Capsule 100 mg PO DIRECTED RF: 0 Discharge Orders: Discharge Order (Routine); Ordered 12/12/18 Ordered By: Angy Colvin Admission Data Admit Date/Time: 12/07/18 06:36 Attending Provider: Angy Colvin Admit Provider: Lemuel Alfaro Primary Care Provider: Laisha Martins Other Providers: Rogelio Mercedes ; Lemuel Alfaro Other Interventions: Discharge Summary Assessment (RN) Last Done: 12/12/18 14:29 DC Date/Time DO NOT enter until pt leaves facility: 12/12/18 15:29 Supervising Physician Co-Signing Physician Notes PA Supervision Note: I personally saw and examined the patient. I verified all vidales points and agree with ESPERANZA Stanton with the following exceptions and/or additions: Pt feels well, no complaints Vitals reviewed General: NAD HEENT: anicteric sclerae Neck: Supple and nontender Cardiac: RRR Lungs: mild bibasilar crackles, otherwise clear Abdomen: Bowel normoactive X 4; Nontender to palpation Extremities: Warm. No edema present Neuro: No focal weakness Skin: No rash Stable for discharge to home on po abx
--- NOTE | 2018-12-22 06:54 | Coding Query ---
CODING QUERY To promote full compliance with coding requirements relating to patient care, provider participation is requested in all cases of intravenous therapy nurse uncertainty. Please assist us with the question(s) below: Coding Question(s): Please clarify the organism associated with the Pneumonia. Physician's Response(s): Pneumonia secondary to MSSA Thank you Roberta Romero Principal Diagnosis: "that condition established after study, to be chiefly responsible for occasioning the admission of the patient to the hospital for care." Co-Existing Principal Diagnosis: "when two or more diagnoses equally meet the criteria for principal diagnosis as determined by the circumstances of admission, diagnostic work up, and/or therapy provided, and the Alphabetic Index, Tabular List, or another coding guideline does not provide sequencing direction, any one of the diagnoses may be sequenced first." "When the physician has documented what appears to be a current diagnosis in the body of the record, but has not included the diagnosis in the final diagnostic statement, the physician should be asked whether the diagnosis should be added." (Source Coding [facility] 2 QTR90. p3-4) CORIE
== END 2018-12-12 15:29 | disposition home health service (06) | DRG 177 ==
LOC: ED 03:59 → 1E 06:36 → SUATTDRO 06:36 → 1E 07:10 → 2S 17:53 → 2W 12-08 12:43